=== PATIENT | female | born 1980 | race African-American/Black ===

== ENCOUNTER → 2021-01-05 11:37 | Outpatient (BNVA) | payer MEDICAID, SELFPAY | PROVIDERS: PCP General Practice; Visit Provider Internal Medicine ==

== ENCOUNTER 2021-01-07 06:15 | Outpatient (REF) | payer MEDICAID, SELFPAY ==
[2021-01-07 07:49] LABS: Free T4 (Free Thyroxine) 1.08 ng/dL (0.71-1.85); Thyroid Stimulating Hormone 4.35 uIU/mL (0.32-4.0); Vitamin D 25-OH Total 16.8 ng/mL (>30)
== END 2021-01-07 06:16 | disposition home or self-care (01) ==
LOC: HO.LAB 06:15
PROVIDERS: Visit Provider Internal Medicine
DX: E55.9 Vitamin D deficiency, unspecified (principal); E03.9 Hypothyroidism, unspecified
CPT/HCPCS: 36415; 82306; 84439; 84443

== ENCOUNTER 2021-08-08 16:35 | Emergency (ER) | payer MEDICAID, SELFPAY ==
[2021-08-08 17:37] VITALS: BP 96/58; PULSE 103; RESP 20; TEMP 36.1; O2SAT 99; BMI 31.7
[2021-08-08 18:31] LABS: Appearance Urine CLEAR; Color Urine YELLOW; Glucose Urine UA NEG (NEG); Leukocyte Esterase Urine 1+ (NEG); Nitrite Urine NEG (NEG); Specific Gravity - Urine 1.025 (1.005-1.025); UACC Culture Trigger YES; Urine Blood 2+ (NEG); Urine Ketones NEG (NEG); Urine Protein NEG (NEG-TRACE)
[2021-08-08 18:33] LABS: UPreg QC Valid YES; Urine Pregnancy NEGATIVE (NEGATIVE)
[2021-08-08 18:44] LABS: Basophils Percent Auto 0.8 % (0-2); Eosinophils Percent Auto 0.4 % (0-4); Hematocrit 33.7 % (37.0-47.0); Hemoglobin 11.4 g/dl (12.0-16.0); Imm Gran Abs Auto 0.02 X10*3/uL (0.00-0.03); Imm Gran Pct Auto 0.8 % (0.0-0.4); Lymphocytes Absolute Auto 0.6 X10*3/uL (1.2-4.9); Lymphocytes Percent Auto 21.8 % (20-40); MANUAL DIFF FLAG SCAN; Mean Corpuscular HGB Conc 33.8 g/dl (31.0-35.0); Mean Corpuscular Hemoglobin 27.3 pg (27.0-33.0); Mean Corpuscular Volume 80.6 fL (80.0-98.0); Mean Platelet Volume 10.4 fL (9.4-12.3); Monocytes Absolute Auto 0.8 X10*3/uL (0.1-1.2); Neutrophils Absolute Auto 1.2 x10*3/uL (2.0-8.3); Neutrophils Percent Auto 47.2 % (45-73); Platelet Count 168 X10*3/uL (160-400); Red Blood Count 4.18 X10*6/uL (4.20-5.50); Red Cell Distribution Width 14.2 % (11.0-16.0); SCAN SMEAR FLAG 1; White Blood Count 2.6 X10*3/uL (4.8-10.8)
[2021-08-08 18:54] LABS: Anion Gap 11 (12-20); Blood Urea Nitrogen 10 mg/dL (9-16); Calcium 9.1 mg/dL (8.4-10.2); Carbon Dioxide 24 mmol/L (22-29); Chloride 108 mmol/L (96-108); Creatinine Clr Calc Pharmacy 83.6; Estimated Glomerular Filt Rate 55; Glucose Fasting 83 mg/dL (60-99); Potassium 3.9 mmol/L (3.3-5.1); Sodium 139 mmol/L (135-145)
[2021-08-08 18:58] LABS: Bacteria Urine TRACE /LPF; Squamous Epithelial Cell Urine 2+ /LPF
[2021-08-08 19:07] LABS: SLIDE REVIEW VERIFIED
[2021-08-08 19:46] VITALS: BP 100/58; PULSE 100; RESP 18; TEMP 36.9; O2SAT 99
[2021-08-08 20:11] LABS: COVID-19 Test Positive (Negative)
--- NOTE | 2021-08-08 22:25 | ED_ITS ---
HPI - Female Genitourinary General Chief complaint: Urogenital-Female Stated complaint: Back pain Time Seen by Provider: 08/08/21 19:37 History of Present Illness HPI Narrative: Patient 40 years old son tested positive for COVID. Patient complaining of back pain that is bilateral. Radiates down both legs. There is no bowel urinary incontinence. No focal weakness. Patient is from home. Had her Moderna vaccine back in November and December. Patient denies any dizziness. Pain worse with movement. No trauma to the back. Related Data Home Medications Medication Instructions Recorded Confirmed emtricitabine 100 mg-tenofovir 1 tab PO tab 01/05/21 01/05/21 disoproxil fumarate 150 mg tablet (Truvada) levothyroxine 200 mcg tablet 200 mcg PO DAILY 01/05/21 01/05/21 (Synthroid) Previous Rx's Medication Instructions Recorded cholecalciferol (vitamin D3) 1,250 1,250 mcg PO QWEEK 56 Days #8 cap 01/10/21 mcg (50,000 unit) capsule cholecalciferol (vitamin D3) 50 50 mcg PO DAILY 30 Days #30 cap 01/10/21 mcg (2,000 unit) capsule cyclobenzaprine 10 mg tablet 10 mg PO TID PRN #14 tab 08/08/21 ibuprofen 400 mg tablet 400 mg PO Q6H PRN #20 tab 08/08/21 Allergies Allergy/AdvReac Type Severity Reaction Status Date / Time No Known Drug Allergies Allergy Mild NONE Verified 01/05/21 12:12 [NO KNOWN DRUG ALLERGIES] Review of Systems Review of Systems: No focal weakness no bowel urinary incontinence. No fever no chills no cough no congestion or upper respiratory symptoms Yes all other systems are reviewed and are negative PMF Past Medical History Attestation statement: The following information was validated with the patient. Medical History History of Graves' disease Hypothyroidism Sickle cell disease Vitamin D deficiency Surgical History Hx of appendectomy Hx of neck surgery Hx of total thyroidectomy Hx of tubal ligation Family History Family History Mother Diabetes Alzheimer disease Parkinson disease Father Prostate cancer Social History Social History Advance Directives: No Advance Directives Information Provided: No Physical Exam Vital Signs: Vital Signs: Last Vital Signs Temp 98.5 F 08/08/21 19:46 Pulse 100 08/08/21 19:46 Resp 18 08/08/21 19:46 BP 100/58 L 08/08/21 19:46 Pulse Ox 99 08/08/21 19:46 BMI result Body Mass Index 31.7 Appearance: Alert. Oriented X3. No acute distress. Eyes: Pupils equal, round and reactive to light. ENT: Pharynx normal. Neck: Normal inspection. Neck supple. No lymph nodes noted. No crepitus CVS: Normal heart rate and rhythm. Pulses normal. Normal S1 and S2 Respiratory: No respiratory distress. Breath sounds normal. No Wheezing. No rales Abdomen: Soft and nontender. No rigidity. No distention. good BS x4 Skin: Skin warm and dry. Normal skin color. Normal skin turgor. Extremities: No lower extremity edema. Neurovascular intact to all extremities. No Lacerations. No Rash Neuro: Oriented X 3. No motor deficit. No sensory deficit. Moving all extermities. No slurred speech. Positive paraspinal muscle tenderness bilaterally. Sensation bilateral lower extremity intact. Ambulated well without any difficulty. Reflexes for patella laterally. MDM - Female Genitourinary MDM Narrative Medical decision making narrative: COVID test was positive. Urine showed no evidence of infection. Creatinine was normal. Hemoglobin is normal. Patient's back pain radiating down the leg consistent with having sciatica. No bowel urinary incontinence. No focal weakness. Will discharge patient home with NSAID and muscle relaxants. test was also negative. Lab Data Result diagrams: 08/08/21 18:35 08/08/21 18:35 Labs: Lab Results 08/08/21 08/08/21 08/08/21 Range/Units 18:23 18:23 18:35 WBC 2.6 L (4.8-10.8) X10*3/uL RBC 4.18 L (4.20-5.50) X10*6/uL Hgb 11.4 L (12.0-16.0) g/dl Hct 33.7 L (37.0-47.0) % MCV 80.6 (80.0-98.0) fL MCH 27.3 (27.0-33.0) pg MCHC 33.8 (31.0-35.0) g/dl RDW 14.2 (11.0-16.0) % Plt Count 168 (160-400) X10*3/uL MPV 10.4 (9.4-12.3) fL Immature Gran % (Auto) 0.8 H (0.0-0.4) % Neut % (Auto) 47.2 (45-73) % Lymph % (Auto) 21.8 (20-40) % [place] % (Auto) 29.0 H (2-11) % Eos % (Auto) 0.4 (0-4) % Baso % (Auto) 0.8 (0-2) % Lymph # (Auto) 0.6 L (1.2-4.9) X10*3/uL [place] # (Auto) 0.8 (0.1-1.2) X10*3/uL Eos # (Auto) 0.0 (0.0-0.4) X10*3/uL Baso # (Auto) 0.0 (0.0-0.2) X10*3/uL Abs Immat Gran (auto) 0.02 (0.00-0.03) X10*3/uL Absolute Neuts (auto) 1.2 L (2.0-8.3) x10*3/uL Absolute Nucleated RBC 0.000 (0.0-0.012) X10*3/uL Nucleated RBC % (auto) 0.0 (0.0-0.2) /100WBC Smear Tech's Comments VERIFIED Sodium (135-145) mmol/L Potassium (3.3-5.1) mmol/L Chloride (96-108) mmol/L Carbon Dioxide (22-29) mmol/L Anion Gap (12-20) BUN (9-16) mg/dL Creatinine (0.5-1.4) mg/dL Estim Creat Clear Calc Estimated GFR Fasting Glucose (60-99) mg/dL Calcium (8.4-10.2) mg/dL Urine Color YELLOW Urine Appearance CLEAR Urine pH 6.0 (5.0-8.0) Ur Specific [place] 1.025 (1.005-1.025) Urine Protein NEG (NEG-TRACE) MG/DL Urine Glucose (UA) NEG (NEG) MG/DL Urine Ketones NEG (NEG) MG/DL Urine Blood 2+ H (NEG) Urine Nitrite NEG (NEG) Ur Leukocyte Esterase 1+ H (NEG) Urine RBC 1-4 (0) /HPF Urine WBC 1-4 (0-4) /HPF Ur Squamous Epith Cells 2+ /LPF Urine Bacteria TRACE /LPF Urine Test NEGATIVE (NEGATIVE) COVID-19 (SHRUTHI) (Negative) COVID-19 Clin Com 08/08/21 08/08/21 Range/Units 18:35 19:46 WBC (4.8-10.8) X10*3/uL RBC (4.20-5.50) X10*6/uL Hgb (12.0-16.0) g/dl Hct (37.0-47.0) % MCV (80.0-98.0) fL MCH (27.0-33.0) pg MCHC (31.0-35.0) g/dl RDW (11.0-16.0) % Plt Count (160-400) X10*3/uL MPV (9.4-12.3) fL Immature Gran % (Auto) (0.0-0.4) % Neut % (Auto) (45-73) % Lymph % (Auto) (20-40) % [place] % (Auto) (2-11) % Eos % (Auto) (0-4) % Baso % (Auto) (0-2) % Lymph # (Auto) (1.2-4.9) X10*3/uL [place] # (Auto) (0.1-1.2) X10*3/uL Eos # (Auto) (0.0-0.4) X10*3/uL Baso # (Auto) (0.0-0.2) X10*3/uL Abs Immat Gran (auto) (0.00-0.03) X10*3/uL Absolute Neuts (auto) (2.0-8.3) x10*3/uL Absolute Nucleated RBC (0.0-0.012) X10*3/uL Nucleated RBC % (auto) (0.0-0.2) /100WBC Smear Tech's Comments Sodium 139 (135-145) mmol/L Potassium 3.9 (3.3-5.1) mmol/L Chloride 108 (96-108) mmol/L Carbon Dioxide 24 (22-29) mmol/L Anion Gap 11 L (12-20) BUN 10 (9-16) mg/dL Creatinine 1.09 (0.5-1.4) mg/dL Estim Creat Clear Calc 83.6 Estimated GFR 55 Fasting Glucose 83 (60-99) mg/dL Calcium 9.1 (8.4-10.2) mg/dL Urine Color Urine Appearance Urine pH (5.0-8.0) Ur Specific [place] (1.005-1.025) Urine Protein (NEG-TRACE) MG/DL Urine Glucose (UA) (NEG) MG/DL Urine Ketones (NEG) MG/DL Urine Blood (NEG) Urine Nitrite (NEG) Ur Leukocyte Esterase (NEG) Urine RBC (0) /HPF Urine WBC (0-4) /HPF Ur Squamous Epith Cells /LPF Urine Bacteria /LPF Urine Test (NEGATIVE) COVID-19 (SHRUTHI) Positive A (Negative) COVID-19 Clin Com See Note Discharge Plan Discharge Clinical Impression: Sciatica Patient Disposition: Home, Self-Care Instructions: Sciatica (ED), Acute Low Back Pain (ED), COVID-19 (Coronavirus Disease 2019) (ED) Prescriptions: New cyclobenzaprine 10 mg tablet 10 mg PO TID PRN (Reason: pain) Qty: 14 RF: 0 ibuprofen 400 mg tablet 400 mg PO Q6H PRN (Reason: pain) Qty: 20 RF: 0 No Action cholecalciferol (vitamin D3) 50 mcg (2,000 unit) capsule 50 mcg PO DAILY 30 Days Qty: 30 RF: 11 cholecalciferol (vitamin D3) 1,250 mcg (50,000 unit) capsule 1,250 mcg PO QWEEK 56 Days Qty: 8 RF: 0 levothyroxine [Synthroid] 200 mcg tablet 200 mcg PO DAILY RF: 0 emtricitabine-tenofovir (TDF) [Truvada] 100-150 mg tablet 1 tab PO RF: 0 Referrals: Physician,Unknown J [Primary Care Provider] - 2 days ( Please stay at home isolation into all symptom has resolved. you tested positive for COVID today.)
[2021-08-08] MEDS: carisoprodoL 350 MG TABLET PO (22:47)
[2021-08-08] MEDS: Ibuprofen 400 MG TABLET PO (22:47)
== END 2021-08-08 22:50 | disposition home or self-care (01) ==
PROVIDERS: Emergency Provider Emergency Medicine Emergency Medical Services
DX: U07.1 COVID-19 (principal); M54.42 Lumbago with sciatica, left side; M54.41 Lumbago with sciatica, right side
CPT/HCPCS: 36415; 80048; 81001; 81025; 85025; 87086; 87635; 99283

== ENCOUNTER 2022-03-23 13:33 | Outpatient (REF) | payer MEDICAID, SELFPAY ==
[2022-03-23 14:25] LABS: Alanine Aminotransferase 12 U/L (0-31); Albumin Level 4.2 g/dL (3.5-5.0); Alkaline Phosphatase 54 U/L (39-117); Anion Gap 9 (12-20); Aspartate Amino Transferase 19 U/L (5-31); Bilirubin Direct 0.2 mg/dL (0.0-0.5); Bilirubin Total 0.3 mg/dL (0.0-1.0); Blood Urea Nitrogen 11 mg/dL (9-16); Calcium 8.5 mg/dL (8.4-10.2); Carbon Dioxide 24 mmol/L (22-29); Chloride 110 mmol/L (96-108); Estimated Average Glucose 100 mg/dL; Estimated Glomerular Filt Rate 58; Glucose Random 95 mg/dL (60-115); Hemoglobin A1c % 5.1 %; Potassium 4.2 mmol/L (3.3-5.1); Sodium 139 mmol/L (135-145); Total Protein 6.9 g/dL (6.5-8.0)
[2022-03-23 14:45] LABS: TSH reflex Free T4 6.01 uIU/mL (0.32-4.0)
[2022-03-23 16:30] LABS: Free T4 (Free Thyroxine) 1.24 ng/dL (0.71-1.85)
[2022-03-25 18:26] LABS: Follicle Stimulating Hormone 7.7 mIU/mL; Lutenizing Hormone 6.5 mIU/mL; Prolactin 4.7 ng/mL
[2022-03-30 11:56] LABS: Testosterone, Total 24 ng/dL (2-45)
== END 2022-03-23 13:34 | disposition home or self-care (01) ==
LOC: HO.LAB 13:33
PROVIDERS: PCP General Practice; Visit Provider General Practice
DX: E03.9 Hypothyroidism, unspecified (principal); N92.6 Irregular menstruation, unspecified
CPT/HCPCS: 36415; 80053; 82248; 83001; 83002; 83036; 84146; 84403; 84439; 84443

== ENCOUNTER 2022-07-28 11:33 | Emergency (ER) | payer MEDICAID, SELFPAY ==
--- NOTE | ~2022-07-28 | XR_ITS ---
EXAMINATION: LEFT KNEE AND LEFT HIP. CLINICAL INFORMATION: Fall. Pain. COMPARISON: None TECHNIQUE: 4 views left knee and 2 views left hip. FINDINGS: Left knee: There is no visible acute fracture, dislocation or subluxation seen. The soft tissues are normal. Left hip: The left hip joint space is maintained normal. No visible acute fracture or dislocation or subluxation seen. There is no bony erosive changes. The soft tissues are normal. XR/XR knee LT 4V IMPRESSION: Unremarkable left knee and left hip exam.
--- NOTE | ~2022-07-28 | XR_ITS ---
EXAMINATION: LEFT KNEE AND LEFT HIP. CLINICAL INFORMATION: Fall. Pain. COMPARISON: None TECHNIQUE: 4 views left knee and 2 views left hip. FINDINGS: Left knee: There is no visible acute fracture, dislocation or subluxation seen. The soft tissues are normal. Left hip: The left hip joint space is maintained normal. No visible acute fracture or dislocation or subluxation seen. There is no bony erosive changes. The soft tissues are normal. XR/XR hip LT min 2V IMPRESSION: Unremarkable left knee and left hip exam.
[2022-07-28 12:30] VITALS: BP 110/77; PULSE 81; RESP 18; O2SAT 100; BMI 30.1
--- NOTE | 2022-07-28 12:30 | ED.FALL ---
HPI - Fall General Chief Complaint: Fall <Maegan Greene CNP - Last Filed: 07/28/22 12:36> Stated Complaint: fall down stairs, knee and back pain <Maegan Greene CNP - Last Filed: 07/28/22 12:36> Time Seen by Provider: 07/28/22 13:43 <Maegan Greene CNP - Last Filed: 07/28/22 12:36> Source: patient <Betty Moses NP - Last Filed: 07/28/22 15:08> Mode of arrival: wheelchair <Betty Moses NP - Last Filed: 07/28/22 15:08> Limitations: no limitations <Betty Moses NP - Last Filed: 07/28/22 15:08> History of Present Illness HPI Narrative: 41 yo female with history of sickle cell, hypothyroidism here with complaints of left hip/knee pain after a fall just [employer]. Patient reports she was walking down steps when her left knee gave out causing her to fall landing on the left hip/knee down 5 steps. Denies hitting head or LOC. NO neck pain/back pain/chest pain or abdominal pain. Patient reports scheduled for meniscus repair/clean out of left knee on Sunday with [facility]. <Betty Moses NP - Last Filed: 07/28/22 15:08> Related Data Home Medications: Home Medications Medication Instructions Recorded Confirmed emtricitabine 100 mg-tenofovir 1 tab PO 01/05/21 01/05/21 disoproxil fumarate 150 mg tablet (Truvada) levothyroxine 200 mcg tablet 200 mcg PO DAILY 01/05/21 01/05/21 (Synthroid) Previous Rx's Medication Instructions Recorded cholecalciferol (vitamin D3) 1,250 1,250 mcg PO QWEEK 8 weeks #8 caps 01/10/21 mcg (50,000 unit) capsule cholecalciferol (vitamin D3) 50 50 mcg PO DAILY 30 days #30 caps 01/10/21 mcg (2,000 unit) capsule cyclobenzaprine 10 mg tablet 10 mg PO TID PRN pain #14 tabs 08/08/21 ibuprofen 400 mg tablet 400 mg PO Q6H PRN pain #20 tabs 08/08/21 <Maegan Greene [facility] - Last Filed: 07/28/22 12:36> Allergies/Adverse Reactions: Allergies Allergy/AdvReac Type Severity Reaction Status Date / Time No Known Drug Allergies Allergy Mild NONE Verified 01/05/21 12:12 [NO KNOWN DRUG ALLERGIES] <Maegan Greene [facility] - Last Filed: 07/28/22 12:36> Review of Systems Review of Systems: Yes all other systems are reviewed and are negative <Betty Moses NP - Last Filed: 07/28/22 15:08> Constitutional: Constitutional: Reports no additional constitutional complaints, Denies body ache(s), Denies chills, Denies fever(s), Denies headache(s) and Denies weakness <Betty Moses NP - Last Filed: 07/28/22 15:08> Eyes: Eyes: Reports no additional eye complaints and Denies change in vision <Betty Moses NP - Last Filed: 07/28/22 15:08> ENT: Reports system reviewed and no additional complaints, except as documented, Denies dizziness, Denies headache(s), Denies nasal congestion, Denies nasal discharge and Denies neck pain <Betty Moses NP - Last Filed: 07/28/22 15:08> Cardiovascular: Cardiovascular: Reports no additional cardiovascular complaints, Denies chest pain, Denies leg edema and Denies dyspnea <Betty Moses NP - Last Filed: 07/28/22 15:08> Respiratory: Respiratory: Reports no additional respiratory complaints, Denies cough and Denies dyspnea <Betty Moses NP - Last Filed: 07/28/22 15:08> Gastrointestinal: Gastrointestinal: Reports no additional gastrointestinal complaints, Denies abdominal pain, Denies diarrhea, Denies nausea and Denies vomiting <Betty Moses NP - Last Filed: 07/28/22 15:08> Genitourinary: Genitourinary: Reports no additional female genitourinary complaints and Denies urinary incontinence <Betty Moses NP - Last Filed: 07/28/22 15:08> Musculoskeletal: Musculoskeletal: Reports no additional musculoskeletal complaints, Denies back pain, Reports arthralgias, Reports joint swelling, Reports limited range of motion, Denies neck pain, Denies numbness and Denies tingling <Betty Moses NP - Last Filed: 07/28/22 15:08> Integumentary/Breasts: Skin/Breast: Reports system reviewed and no additional complaints, except as docu and Denies rash <Betty Moses NP - Last Filed: 07/28/22 15:08> Neurologic: Reports system reviewed and no additional complaints, except as documented, Denies Abnormal speech present, Denies dizziness, Denies headache(s), Denies numbness, Denies tingling and Denies weakness <Betty Moses NP - Last Filed: 07/28/22 15:08> [facility] Past Medical History Attestation statement: The following information was validated with the patient. <Betty Moses NP - Last Filed: 07/28/22 15:08> Source: old records reviewed and nursing notes reviewed <Betty Moses NP - Last Filed: 07/28/22 15:08> Medical History: Medical History History of Graves' disease Hypothyroidism Sickle cell disease Vitamin D deficiency <Maegan Greene CNP - Last Filed: 07/28/22 12:36> Surgical History: Surgical History Hx of appendectomy Hx of neck surgery Hx of total thyroidectomy Hx of tubal ligation <Maegan Greene CNP - Last Filed: 07/28/22 12:36> Family History Family History: Family History Mother Diabetes Alzheimer disease Parkinson disease Father Prostate cancer <Maegan Greene CNP - Last Filed: 07/28/22 12:36> Social History Social History: Social History Advance Directives: No Advance Directives Information Provided: Yes <Maegan Greene CNP - Last Filed: 07/28/22 12:36> Physical Exam Vital Signs: Vital Signs: Last Vital Signs Pulse 81 07/28/22 12:30 Resp 18 07/28/22 12:30 BP 110/77 07/28/22 12:30 Pulse Ox 100 07/28/22 12:30 O2 Del Method 07/28/22 12:30 BMI result Body Mass Index 30.1 <Maegan Greene CNP - Last Filed: 07/28/22 12:36> Vital Signs: Last Vital Signs Pulse 81 07/28/22 12:30 Resp 18 07/28/22 12:30 BP 110/77 07/28/22 12:30 Pulse Ox 100 07/28/22 12:30 O2 Del Method 07/28/22 12:30 BMI result Body Mass Index 30.1 <Betty Moses NP - Last Filed: 07/28/22 15:08> Const: General: cooperative, healthy appearing, comfortable and no acute distress <Betty Moses NP - Last Filed: 07/28/22 15:08> Orientation/consciousness: patient oriented x3 <Betty Moses NP - Last Filed: 07/28/22 15:08> Limitations: no limitations <Betty Moses NP - Last Filed: 07/28/22 15:08> HEENT: Head: Yes normal to inspection <Betty Moses NP - Last Filed: 07/28/22 15:08> Ears: hearing grossly normal bilaterally <Betty Moses NP - Last Filed: 07/28/22 15:08> General nose exam: Normal external nose present <Betty Moses NP - Last Filed: 07/28/22 15:08> Face and sinus: Yes normal facial exam <Betty Moses NP - Last Filed: 07/28/22 15:08> Mouth: Normal oral and palatal mucosa present <Betty Moses NP - Last Filed: 07/28/22 15:08> Throat: Yes posterior oropharynx normal <Betty Moses NP - Last Filed: 07/28/22 15:08> Eyes: General: appearance normal, both eyes and all related structures <Betty Moses NP - Last Filed: 07/28/22 15:08> Pupils: Equal, round and reactive pupils present <Betty Moses NP - Last Filed: 07/28/22 15:08> Neck: Neck: Yes normal visual inspection <Betty Moses NP - Last Filed: 07/28/22 15:08> Chest: Chest palpation & inspection: normal inspection of the chest <Betty Moses NP - Last Filed: 07/28/22 15:08> Resp: Effort & Inspection: normal respiratory effort <Betty Moses NP - Last Filed: 07/28/22 15:08> Auscultation: clear to auscultation bilaterally <Betty Moses NP - Last Filed: 07/28/22 15:08> Cardio: Rate: regular rate <Betty Moses NP - Last Filed: 07/28/22 15:08> Rhythm: regular rhythm <Betty Moses NP - Last Filed: 07/28/22 15:08> Peripheral pulses: Peripheral pulses 2+ throughout <Betty Moses WORKING MANAGER - Last Filed: 07/28/22 15:08> GI: Inspection: Yes normal to inspection <Betty Moses NP - Last Filed: 07/28/22 15:08> Palpation (GI): Soft to palpation and nontender <Betty Moses NP - Last Filed: 07/28/22 15:08> Auscultation: normal bowel sounds <Betty Moses NP - Last Filed: 07/28/22 15:08> Back/Spine/Pelvis: Thoracic/Lumbar Spine: thoracic and lumbar spine normal to inspection <Betty Moses NP - Last Filed: 07/28/22 15:08> Skin: General skin exam: no rashes or lesions noted <Betty Moses NP - Last Filed: 07/28/22 15:08> Neuro: General: patient oriented x3, no focal motor deficits and normal sensation to monofilament <Betty Moses NP - Last Filed: 07/28/22 15:08> Cranial nerves: Yes Equal, round and reactive pupils present <Betty Moses NP - Last Filed: 07/28/22 15:08> Cognition (Neuro): normal cognition <Betty Moses NP - Last Filed: 07/28/22 15:08> Speech: No Abnormal speech present <Betty Moses NP - Last Filed: 07/28/22 15:08> Gait exam (Neuro): Normal gait present <Betty Moses NP - Last Filed: 07/28/22 15:08> Motor exam (neuro): 5/5 motor strength present throughout <Betty Moses NP - Last Filed: 07/28/22 15:08> Sensory Exam: Normal double simultaneous stimulation for sensation <Betty Moses NP - Last Filed: 07/28/22 15:08> Extrem: Other: Tenderness to the left lateral knee/hip with no obvious deformity/swelling/ecchymosis. FROM of left knee and hip. No ligamental laxity of left knee. NV intact distally (sensation normal, normal distal DP and PT pulses). <Betty Moses NP - Last Filed: 07/28/22 15:08> General: Yes normal to inspection <Betty Moses NP - Last Filed: 07/28/22 15:08> Course Course Course Narrative: RME: Patient is a 41-year-old female presenting to emergency department with complaints of traumatic left hip and left knee pain. States just prior to arrival when walking down the stairs last footing, fell down approximately 5-7 stairs. Sliding on the left side. Denies head strike or loss of consciousness. Currently complaining of pain to the left hip and left lateral knee. Is due to have knee surgery next week, believes it is a meniscus repair PE: Decreased AROM to Left hip and knee, sitting in wheelchair, states unable to weight bear due to pain. 2+ DP/ PT pulse. No obvious deformity. Plan: XR hip, XR knee, ibuprofen for pain. <Maegan Greene CNP - Last Filed: 07/28/22 12:36> Reevaluation(s) Reevaluation #1: 1500-X-rays are negative. Patient able to stand from wheelchair to remove pants for exam. Likely contusion. Reviewed RICE, reviewed worrisome signs/symptoms with patient and when to seek additional care. Comfortable with discharg ehome. <Betty Moses NP - Last Filed: 07/28/22 15:08> Medications Administered Discontinued Medications Generic Name Dose Route Start Last Admin Trade Name Freq PRN Reason Stop Dose Admin Ibuprofen 600 mg 07/28/22 12:33 07/28/22 12:39 Ibuprofen 600 Mg Tablet PO 07/28/22 12:34 600 mg ONCE ONE Administration <Maegan Greene CNP - Last Filed: 07/28/22 12:36> Medications Administered Discontinued Medications Generic Name Dose Route Start Last Admin Trade Name Freq PRN Reason Stop Dose Admin Ibuprofen 600 mg 07/28/22 12:33 07/28/22 12:39 Ibuprofen 600 Mg Tablet PO 07/28/22 12:34 600 mg ONCE ONE Administration <Betty Moses NP - Last Filed: 07/28/22 15:08> MDM - Fall MDM Narrative Medical decision making narrative: 41 yo female here with left knee/hip pain after left knee gave out causing her to fall. No head injury or LOC. Normal neuro exam. Mild tenderness over lateral left knee and hip with no obvious deformity or swelling. Will check x-rays. <Betty Moses NP - Last Filed: 07/28/22 15:08> Medical Records Attestation: I reviewed the patient's medical records. <Betty Moses NP - Last Filed: 07/28/22 15:08> Lab Data Attestation: I reviewed the patient's lab results. <Betty Moses NP - Last Filed: 07/28/22 15:08> Imaging Data left knee/hip x-rays: Attestation: I personally reviewed and interpreted this imaging study as follows: <Betty Moses NP - Last Filed: 07/28/22 15:08> Radiologist's impression: [address] [address] XRay Report Signed Patient: Izabela Jacobsen MR#: [id number] : 1980 Acct:[id number] Age/Sex: 41 / F ADM Date: 07/28/22 Loc: HO.ED Attending Dr: Ordering Physician: Maegan Greene CNP Date of Service: 07/28/22 Procedure(s): XR hip LT min 2V Accession Number(s): [id number] cc: Maegan Greene CNP~ EXAMINATION: LEFT KNEE AND LEFT HIP. CLINICAL INFORMATION: Fall. Pain. COMPARISON: None? TECHNIQUE: 4 views left knee and 2 views left hip.? FINDINGS: Left knee: There is no visible acute fracture, dislocation or subluxation seen. The soft tissues are normal. Left hip: The left hip joint space is maintained normal. No visible acute fracture or dislocation or subluxation seen. There is no bony erosive changes. The soft tissues are normal. XR/XR hip LT min 2V IMPRESSION: Unremarkable left knee and left hip exam.? <Betty Moses NP - Last Filed: 07/28/22 15:08> Discharge Plan Discharge Clinical Impression: Contusion of knee, left, Contusion of hip, left <Maegan Greene CNP - Last Filed: 07/28/22 12:36> Patient Disposition: Home, Self-Care <Maegan Greene CNP - Last Filed: 07/28/22 12:36> Instructions: Contusion in Adults (ED), Hip Contusion (ED) <Maegan Greene CNP - Last Filed: 07/28/22 12:36> Additional Instructions: motrin or tylenol for pain or fever heat or ice gentle stretching <Maegan Greene CNP - Last Filed: 07/28/22 12:36> Prescriptions: No Action cholecalciferol (vitamin D3) 50 mcg (2,000 unit) capsule 50 mcg PO DAILY 30 Days Qty: 30 11RF cholecalciferol (vitamin D3) 1,250 mcg (50,000 unit) capsule 1,250 mcg PO QWEEK 56 Days Qty: 8 0RF cyclobenzaprine 10 mg tablet 10 mg PO TID PRN (Reason: pain) Qty: 14 0RF ibuprofen 400 mg tablet 400 mg PO Q6H PRN (Reason: pain) Qty: 20 0RF levothyroxine [Synthroid] 200 mcg tablet 200 mcg PO DAILY emtricitabine-tenofovir (TDF) [Truvada] 100-150 mg tablet 1 tab PO <Maegan Greene CNP - Last Filed: 07/28/22 12:36> [facility] - <Maegan Greene CNP - Last Filed: 07/28/22 12:36> Interventions: ED Discharge Assessment Last Done: 07/28/22 14:40 <Maegan Greene CNP - Last Filed: 07/28/22 12:36> Discharge Date/Time: 07/28/22 14:40 <Maegan Greene CNP - Last Filed: 07/28/22 12:36>
[2022-07-28] MEDS: Ibuprofen 600 MG TABLET PO (12:39)
== END 2022-07-28 14:40 | disposition home or self-care (01) ==
PROVIDERS: Emergency Provider Emergency Medicine Emergency Medical Services
DX: S80.02XA Contusion of left knee, initial encounter (principal); S70.02XA Contusion of left hip, initial encounter; W10.8XXA Fall (on) (from) other stairs and steps, initial encounter; Y93.9 Activity, unspecified; Y92.018 Other place in single-family (private) house as the place of occurrence of the external cause; Y99.9 Unspecified external cause status
CPT/HCPCS: 73502; 73564; 99283

== ENCOUNTER 2022-09-09 08:55 | Outpatient (REF) | payer MEDICAID, SELFPAY ==
--- NOTE | ~2022-09-09 | MM_ITS ---
EXAMINATION: MM SCREENING DIGITAL BREAST TOMOSYNTHESIS, BILATERAL CLINICAL INFORMATION: Screening. Asymptomatic. Prior outside mammography currently unavailable. Age 41. Family history breast cancer, maternal grandmother. The lifetime risk of breast cancer based on the Tyrer-Cuzick Model is 13%. COMPARISON: None. TECHNIQUE: Digital breast tomosynthesis is performed in both the craniocaudal and mediolateral oblique views along with computer-aided detection (CAD). Synthesized 2D images are generated from the tomosynthesis. Additional right CC view is provided. FINDINGS: There are scattered areas of fibroglandular density (ACR BI-RADS breast composition Category b). There are no significant masses, abnormal calcifications, or other abnormalities. No architectural abnormality. The axilla and skin contours are unremarkable. MM/MM tomosynthesis screening BI IMPRESSION: No mammographic evidence of malignancy. ASSESSMENT: BI-RADS 1: Negative RECOMMENDATION: Routine annual mammography screening. This patient's information was entered into a reminder system with a target due date for their next mammogram.
== END 2022-09-09 08:56 | disposition home or self-care (01) ==
LOC: HO.MAMMO 08:55
PROVIDERS: PCP General Practice; Visit Provider Advanced Practice Midwife
DX: Z12.31 Encounter for screening mammogram for malignant neoplasm of breast (principal)
CPT/HCPCS: 77063; 77067

== ENCOUNTER → 2022-10-04 09:46 | Outpatient (BNVA) | payer MEDICAID, SELFPAY | PROVIDERS: PCP General Practice; Visit Provider Internal Medicine | DX: E03.9 Hypothyroidism, unspecified (principal) | CPT/HCPCS: 36415; 84439; 84443; 99212 ==

== ENCOUNTER 2022-10-04 10:32 | Outpatient (REF) | payer MEDICAID, SELFPAY ==
[2022-10-04 14:54] LABS: Free T4 (Free Thyroxine) 1.71 ng/dL (0.71-1.85); Thyroid Stimulating Hormone 0.04 uIU/mL (0.32-4.0)
== END 2022-10-04 10:33 | disposition home or self-care (01) ==
LOC: HO.10HDL 10:32
PROVIDERS: Visit Provider Internal Medicine
DX: E03.9 Hypothyroidism, unspecified (principal)
CPT/HCPCS: 36415; 84439; 84443

== ENCOUNTER 2022-11-16 12:50 | Outpatient (REF) | payer MEDICAID, SELFPAY ==
--- NOTE | ~2022-11-16 | XR_ITS ---
EXAMINATION: XR KNEE, RIGHT CLINICAL INFORMATION: Acute pain of right knee. No additional information is provided. COMPARISON: None available. TECHNIQUE: Three views of the right knee. FINDINGS: Bones have normal alignment. No fracture, subluxation or joint effusion. No erosions or periostitis. Small enthesophyte of the patella. Mild edema is suspected in the prepatellar subcutaneous tissue. XR/XR knee RT 3V IMPRESSION: No acute osseous injury at the right knee. No arthritic deformity, fracture or malalignment.
== END 2022-11-16 12:51 | disposition home or self-care (01) ==
LOC: HO.XRAY 12:50
PROVIDERS: Visit Provider Family Medicine
DX: M25.561 Pain in right knee (principal)
CPT/HCPCS: 73562

== ENCOUNTER 2022-11-28 12:23 | Outpatient (REF) | payer MEDICAID, SELFPAY ==
[2022-11-28 18:20] LABS: Free T4 (Free Thyroxine) 1.12 ng/dL (0.71-1.85); Thyroid Stimulating Hormone 1.44 uIU/mL (0.32-4.0)
== END 2022-11-28 12:24 | disposition home or self-care (01) ==
LOC: HO.10HDL 12:23
PROVIDERS: Visit Provider Internal Medicine
DX: E03.9 Hypothyroidism, unspecified (principal)
CPT/HCPCS: 36415; 84439; 84443

== ENCOUNTER → 2022-12-04 11:25 | Outpatient (BNVA) | payer MEDICAID, SELFPAY | PROVIDERS: PCP General Practice; Visit Provider Internal Medicine | DX: E03.9 Hypothyroidism, unspecified (principal) | CPT/HCPCS: 99212 ==

== ENCOUNTER 2023-08-06 17:39 | Outpatient (REF) | payer MEDICAID, SELFPAY ==
[2023-08-06 18:32] LABS: Influenza A PCR NEGATIVE (Negative); Influenza B PCR NEGATIVE (Negative); Resp Syncy Virus RNA Qual PCR NEGATIVE (Negative); SARS COV2 PCR INHOUSE POSITIVE (Negative)
== END 2023-08-06 17:40 | disposition home or self-care (01) ==
LOC: HO.HHCLNP 17:39
PROVIDERS: Visit Provider Internal Medicine
DX: Z11.52 Encounter for screening for COVID-19 (principal); R05.9 Cough, unspecified
CPT/HCPCS: 0241U

== ENCOUNTER 2023-10-05 10:44 | Outpatient (REF) | payer MEDICAID, SELFPAY ==
[2023-10-05 12:45] LABS: Cholesterol 177 mg/dL (<200); HDL Cholesterol 45 mg/dL (>40); LDL Cholesterol Calculated 116 mg/dL (<100); Triglycerides 84 mg/dL (<150)
[2023-10-05 12:52] LABS: Reflex LDLD? No
[2023-10-05 12:55] LABS: HBS Num1 16.92 mIU/mL (0-7.99); HBc Num1 0.18 S/CO (0.00-0.79); HBsAGNum1 0.33 S/CO (0.00-0.99); HIV AB/AG Nonreactive (Nonreactive); HIV Num 1 0.06 S/CO (0.00-0.99); Hepatitis A Antibody IgM 0.18 Index (0-0.79); Hepatitis B Core Antibody Nonreactive (Nonreactive); Hepatitis B Surface Antigen Negative (Negative); ~HepC Num1 0.63 S/CO (0.00-0.79); ~Hepatitis A Antibody IgM Nonreactive (Nonreactive); ~Hepatitis B Surface Antibody REACTIVE (Nonreactive); ~Hepatitis C Antibody Nonreactive (Nonreactive)
[2023-10-05 12:57] LABS: Free T4 (Free Thyroxine) 1.18 ng/dL (0.71-1.85)
[2023-10-05 12:58] LABS: Thyroid Stimulating Hormone 1.54 uIU/mL (0.32-4.0)
[2023-10-05 13:01] LABS: TSH reflex Free T4 1.48 uIU/mL (0.32-4.0)
[2023-10-08 11:35] LABS: RPR Rapid Plasma Reagin NON-REACTIVE (NON-REACTIVE)
[2023-10-08 11:49] LABS: TS Negative Control Passed; TS Panel A 0; TS Panel B 0; TS Positive Control Passed; TSpotTB Negative (Negative)
[2023-10-08 16:34] LABS: Mumps Virus IgG Antibody >300.00 AU/mL; Rubella IgG Antibody 1.43 Index
== END 2023-10-05 10:45 | disposition home or self-care (01) ==
LOC: HO.HHCL 10:44
PROVIDERS: Internal Medicine; Visit Provider Internal Medicine
DX: Z00.00 Encounter for general adult medical examination without abnormal findings (principal); Z11.1 Encounter for screening for respiratory tuberculosis; Z11.4 Encounter for screening for human immunodeficiency virus [HIV]; E89.0 Postprocedural hypothyroidism
CPT/HCPCS: 36415; 80061; 84439; 84443; 86481; 86592; 86704; 86706; 86709; 86735; 86762; 86765; 86803; 87340; 87389

== ENCOUNTER 2023-11-20 11:19 | Outpatient (REF) | payer MEDICAID, SELFPAY ==
--- NOTE | ~2023-11-20 | XR_ITS ---
EXAMINATION: XR KNEE, LEFT CLINICAL INFORMATION: Left knee pain x1 week. No injury COMPARISON: None available. TECHNIQUE: 2 views of the left knee. FINDINGS: No fracture or joint effusion. Alignment is anatomic. Joint spaces are maintained. No abnormal soft tissue calcification. XR/XR knee LT 2V IMPRESSION: Normal left knee.
== END 2023-11-20 11:20 | disposition home or self-care (01) ==
LOC: HO.HHCX 11:19
PROVIDERS: Visit Provider Nurse Practitioner Family
DX: M25.562 Pain in left knee (principal)
CPT/HCPCS: 73560

== ENCOUNTER 2023-11-28 09:54 | Outpatient (AMB) | payer MEDICAID, SELFPAY ==
[2023-11-28 09:57] VITALS: BP 84/54; PULSE 56; BMI 31.9
--- NOTE | 2023-11-28 09:57 | MHC.OFFVIS ---
Intake Vital Signs 11/28/23 09:57 Height 5 ft 10 in Weight 222 lb 3.615 oz BMI 31.9 BP 84/54 L Blood Pressure Location Lt brachial Position Sitting Pulse 56 Pulse Source Pulse Oximeter Intake Visit Reasons: F/U Hypothyroidism-confirmed Intake Note: Patient present today for Hypothyroidism follow up visit. Previously seen by Dr. Solis on 12/04/22. Human Resources Assistant Required: No Accompanied by: Significant Other Allergies No Known Drug Allergies [NO KNOWN DRUG ALLERGIES] Allergy (Mild, Verified 11/28/23 10:03) NONE HPI HPI Comments History of Present Illness Details 42 YO Female with PMHx Goiter who is seen in F/U for hypothyroidism. The patient last saw Dr. Solis on 12/04/2022 She has a past history of Grave's disease with a large compressive goiter. She was previously followed by Dr. Loving. She underwent a total thyroidectomy in 2014 and has remained on levothyroxine ever since. She is currently using Levothyroxine 150 mcg PO daily. She reports good compliance with this. TSH is at goal. Reports feeling well and has no complaints today. Labs: Laboratory Tests 11/28/22 12:29 TSH 1.44 [facility] Medical History History of Graves' disease Hypothyroidism Sickle cell disease Vitamin D deficiency Surgical History Hx of appendectomy Hx of knee surgery Hx of neck surgery Hx of total thyroidectomy Hx of tubal ligation Family History Mother Diabetes Alzheimer disease Parkinson disease Father Prostate cancer Social History Alcohol intake: current Alcohol intake frequency: holidays/special occasions only Patient Tobacco Use Status: Current everyday Tobacco user Physical Exam Const Other: Healed scar status post thyroidectomy Assessment & Plan Assessment & Plan (1) Hypothyroidism: Code(s): E03.9 - Hypothyroidism, unspecified Plan: This is a 43-year-old female with a history of post-operative hypothyroidism being treated with 150 mcg levothyroxine. She appears to be clinically and biochemically euthyroid. Plan is to continue the current regimen. Patient returned to the care of her primary care provider and returned back to endocrinology as needed Coding Level of Care Code Est Pt Level 3 (52183) Diagnoses Hypothyroidism E03.9
== END 2023-11-28 10:14 | disposition home or self-care (01) ==
PROVIDERS: PCP General Practice; Referring Provider General Practice; Visit Provider Internal Medicine Endocrinology, Diabetes & Metabolism
DX: E03.9 Hypothyroidism, unspecified (principal)
CPT/HCPCS: 99213

== ENCOUNTER → 2023-11-28 09:54 | Outpatient (BNVA) | payer MEDICAID, SELFPAY | PROVIDERS: PCP General Practice; Visit Provider Internal Medicine Endocrinology, Diabetes & Metabolism | DX: E03.9 Hypothyroidism, unspecified (principal); E05.00 Thyrotoxicosis with diffuse goiter without thyrotoxic crisis or storm | CPT/HCPCS: 99212 ==

== ENCOUNTER 2023-12-11 13:21 | Outpatient (REF) | payer MEDICAID, SELFPAY ==
[2023-12-11 14:42] LABS: CDiff Gene PCR NEGATIVE (Negative)
== END 2023-12-11 13:22 | disposition home or self-care (01) ==
LOC: HO.HHCLNP 13:21
PROVIDERS: Visit Provider Internal Medicine
DX: R19.7 Diarrhea, unspecified (principal)
CPT/HCPCS: 87493

== ENCOUNTER 2023-12-27 09:53 | Outpatient (AMB) | payer MEDICAID, SELFPAY ==
[2023-12-27 09:55] VITALS: BMI 31.9
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
== END 2023-12-27 10:16 | disposition home or self-care (01) ==
PROVIDERS: PCP General Practice; Visit Provider Orthopaedic Surgery
DX: S83.242A Other tear of medial meniscus, current injury, left knee, initial encounter (principal)
CPT/HCPCS: 99202

== ENCOUNTER → 2023-12-27 09:53 | Outpatient (BNVA) | payer MEDICAID, SELFPAY | PROVIDERS: PCP General Practice; Visit Provider Orthopaedic Surgery | DX: S83.242A Other tear of medial meniscus, current injury, left knee, initial encounter (principal) | CPT/HCPCS: 99202 ==

== ENCOUNTER 2023-12-28 10:38 | Outpatient (REF) | payer MEDICAID, SELFPAY ==
--- NOTE | ~2023-12-28 | MM_ITS ---
EXAMINATION: MM SCREENING DIGITAL BREAST TOMOSYNTHESIS, BILATERAL CLINICAL INFORMATION: Screening. Asymptomatic. COMPARISON: Mammography: This study is compared with prior exams dating back to 2022. TECHNIQUE: Digital breast tomosynthesis is performed in both the craniocaudal and mediolateral oblique views along with computer-aided detection (CAD). Synthesized 2D images are generated from the tomosynthesis. FINDINGS: There are scattered areas of fibroglandular density (ACR BI-RADS breast composition Category b). There are no significant masses, abnormal calcifications, or other abnormalities. MM/MM tomosynthesis screening BI IMPRESSION: No mammographic evidence of malignancy. ASSESSMENT: BI-RADS BI-RADS 1 - Negative RECOMMENDATION: Routine annual mammography screening. 1 year F/U This examination should not preclude the clinical evaluation of a suspicious palpable abnormality. This patient's information was entered into a reminder system with a target due date for their next mammogram.
== END 2023-12-28 10:39 | disposition home or self-care (01) ==
LOC: HO.MAMMO 10:38
PROVIDERS: PCP General Practice; Visit Provider General Practice
DX: Z12.31 Encounter for screening mammogram for malignant neoplasm of breast (principal)
CPT/HCPCS: 77063; 77067

== ENCOUNTER → 2023-12-28 11:00 | Outpatient (BNV) | payer MEDICAID, SELFPAY | PROVIDERS: PCP General Practice; Visit Provider Radiology Diagnostic Radiology | DX: Z12.31 Encounter for screening mammogram for malignant neoplasm of breast (principal) | CPT/HCPCS: 77063; 77067 ==

== ENCOUNTER 2024-01-01 09:52 | Outpatient (AMB) | payer MEDICAID, SELFPAY ==
--- NOTE | 2024-01-01 10:00 | MHC.OFFVIS ---
Vital Signs 01/01/24 10:12 Height 5 ft 10 in Weight 219 lb BMI 31.4 BP 109/56 L Blood Pressure Location Lt brachial Position Sitting Pulse 84 Intake Visit Reasons: Colonoscopy Screening Intake Note: Patient new consult for 1st pre colonoscopy screening Patient cc: GERD with burning sensation and some swallowing problems due her thyroid was remove. 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 female with past medical history of Graves disease, sickle cell disease, hypothyroidism, vitamin-D deficiency is here today for pre colonoscopy screening.? Patient was sent to us by her PCP.? Patient denies any gastrointestinal symptoms in the past or at present.? Patient reports acid reflux today. Patient states that she had no breakfast and had to coffee. Patient usually does not get reflux. Denies any dyspepsia, dysphagia or odynophagia. Denies any personal or family history of gastrointestinal disease, colon polyps, or cancer.? Denies history of difficulty with sedation or anesthesia in the past.? Negative for history of sleep apnea.? Denies any history of cardiac, renal, pulmonary, or hepatic disease.?? No history of infectious? diseases like hepatitis A, B, C, HIV or tuberculosis.? Patient is not on any anticoagulation therapy. 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 Review of Systems Const Denies weight gain and Denies weight loss ENT Reports no additional complaints, Denies dysphagia and Denies odynophagia Card Reports no additional complaints Resp Reports no additional complaints GI Denies abdominal pain, Denies belching, Denies melena, Denies bloating, Denies change in bowel habits, Denies dysphagia, Denies excessive flatus, Denies dyspepsia, Reports heartburn (today no breakfast had coffee), Denies diarrhea, Denies loose stools, Denies nausea, Denies odynophagia and Denies vomiting Musc Reports no additional complaints Neuro Reports no additional complaints Psych Reports no additional complaints Endo Reports no additional complaints Physical Exam Vital Signs: Last Vital Signs Pulse 84 01/01/24 10:12 BP 109/56 L 01/01/24 10:12 BMI result Body Mass Index 31.4 Const General: healthy appearing, no acute distress and well developed Nutritional Appearance: well nourished Orientation/consciousness: patient oriented x3 Resp Effort & Inspection: normal respiratory effort, able to speak in complete sentences, no tracheal deviation and symmetric chest movement Auscultation: clear to auscultation bilaterally Cardio Rate: regular rate GI Inspection: Yes normal to inspection and No distended Palpation (GI): Soft to palpation, not firm, nontender and No hepatosplenomegaly present Auscultation: normal bowel sounds General: Yes no CVA tenderness Back/Spine/Pelvis Back: no CVA tenderness Skin General skin exam: elasticity normal, turgor normal and dry skin Neuro General: patient oriented x3 Psych Appearance: grossly normal Mental Status: mental status grossly normal Assessment & Plan Assessment & Plan (1) Screen for colon cancer: Code(s): Z12.11 - Encounter for screening for malignant neoplasm of colon Plan Patient denies any GI, cardiac or respiratory symptoms. However patient reports that last month she had abdominal pain was seen at [facility] in the ER and was diagnosed with diverticulitis. Patient was placed on antibiotics. Patient reports paternal cousin was diagnosed with colorectal cancer in his 30s. ?Denies any issues with anesthesia in the past.? Denies any history of sleep apnea.? No history infectious diseases in the past or present.? Not on any anticoagulation therapy.? Patient denies melena, hematochezia, unintentional weight loss or ribbon like stools.? Discussed at length the pre-procedure,? prep, diet & medications as well as what to expect prior, during and after the procedure.?? Stressed the importance of good bowel prep. ?Recommended the use of Vaseline or Calmoseptine OTC & baby wipes with bowel movements to promote comfort.? ?Patient verbalizes understanding and agrees to plan of care.? She was given the opportunity to ask questions and all questions answered.? We will see her after the procedure.? Medications: New bisacodyl (Dulcolax (bisacodyl)) take 4 tabs at noon the day before your colonoscopy 20 mg (4 x 5 mg) PO ONCE 4 tabs 0RF 1 day Z12.11 - Encounter for screening for malignant neoplasm of colon polyethylene glycol 3350 (Miralax) As directed by gastroenterology department at [facility] 238 grams PO ONCE 238 grams 0RF Z12.11 - Encounter for screening for malignant neoplasm of colon Coding Level of Care Code New Pt Level 3 (35427) Diagnoses Screen for colon cancer Z12.11 Time Spent (min) 40 Comment 30 minutes spent with patient and additional 10 minutes spent reviewing her records
[2024-01-01 10:12] VITALS: BP 109/56; PULSE 84; BMI 31.4
== END 2024-01-01 10:49 | disposition home or self-care (01) ==
PROVIDERS: PCP General Practice; Visit Provider Nurse Practitioner Family
DX: Z12.11 Encounter for screening for malignant neoplasm of colon (principal); Z01.818 Encounter for other preprocedural examination
CPT/HCPCS: 99203

== ENCOUNTER → 2024-01-01 09:52 | Outpatient (BNVA) | payer MEDICAID, SELFPAY | PROVIDERS: PCP General Practice; Visit Provider Nurse Practitioner Family | DX: Z12.11 Encounter for screening for malignant neoplasm of colon (principal) | CPT/HCPCS: 99212 ==

== ENCOUNTER 2024-02-06 11:36 | Outpatient (AMB) | payer MEDICAID, SELFPAY ==
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
== END 2024-02-06 11:48 | disposition home or self-care (01) ==
PROVIDERS: PCP General Practice; Visit Provider Orthopaedic Surgery
DX: S83.242A Other tear of medial meniscus, current injury, left knee, initial encounter (principal)
CPT/HCPCS: 99214

== ENCOUNTER → 2024-02-06 11:36 | Outpatient (BNVA) | payer MEDICAID, SELFPAY | PROVIDERS: PCP General Practice; Visit Provider Orthopaedic Surgery | DX: S83.242A Other tear of medial meniscus, current injury, left knee, initial encounter (principal) | CPT/HCPCS: 99212 ==

== ENCOUNTER → 2024-02-22 11:05 | Outpatient (BNV) | payer MEDICAID, SELFPAY | PROVIDERS: PCP General Practice; Visit Provider Internal Medicine Cardiovascular Disease | DX: Z01.810 Encounter for preprocedural cardiovascular examination (principal); S83.242A Other tear of medial meniscus, current injury, left knee, initial encounter | CPT/HCPCS: 93010 ==

== ENCOUNTER 2024-03-07 05:54 | Day surgery (SDC) | payer MEDICAID, SELFPAY ==
[2024-02-22 10:35] VITALS: BP 111/65; PULSE 78; RESP 18; O2SAT 99; BMI 31.7
--- NOTE | 2024-02-22 11:05 | ECG_ITS ---
Test Reason : PREOP Blood Pressure : / mmHG Vent. Rate : 067 BPM Atrial Rate : 067 BPM P-R Int : 172 ms QRS Dur : 098 ms QT Int : 414 ms P-R-T Axes : 078 075 066 degrees QTc Int : 437 ms Normal sinus rhythm Normal ECG When compared to the previous EKG of No significant changes seen Referred By: Laura Newton Electronically Signed By:NILES TAVERAS MD
[2024-02-25 10:45] LABS: MANUAL DIFF FLAG NO
[2024-02-25 11:04] LABS: Eosinophils Absolute Auto 0.1 X10*3/uL (0.0-0.4); Eosinophils Percent Auto 2.1 % (0-4); Hemoglobin 11.8 g/dl (12.0-16.0); Imm Gran Abs Auto 0.01 X10*3/uL (0.00-0.03); Imm Gran Pct Auto 0.3 % (0.0-0.4); Lymphocytes Absolute Auto 1.3 X10*3/uL (1.2-4.9); Lymphocytes Percent Auto 32.6 % (20-40); Mean Corpuscular HGB Conc 33.7 g/dl (31.0-35.0); Mean Corpuscular Hemoglobin 27.1 pg (27.0-33.0); Mean Corpuscular Volume 80.3 fL (80.0-98.0); Mean Platelet Volume 10.8 fL (9.4-12.3); Monocytes Absolute Auto 0.5 X10*3/uL (0.1-1.2); Monocytes Percent Auto 11.6 % (2-11); Neutrophils Percent Auto 52.4 % (45-73); Platelet Count 192 X10*3/uL (160-400); Red Blood Count 4.36 X10*6/uL (4.20-5.50); Red Cell Distribution Width 14.1 % (11.0-16.0); White Blood Count 3.9 X10*3/uL (4.8-10.8)
[2024-02-25 11:33] LABS: Anion Gap 14 (12-20); Blood Urea Nitrogen 13 mg/dL (9-16); Calcium 8.7 mg/dL (8.4-10.2); Carbon Dioxide 21 mmol/L (22-29); Chloride 109 mmol/L (96-108); Creatinine Clr Calc Pharmacy 104.6; Estimated Glomerular Filt Rate > 60; Glucose Random 89 mg/dL (60-115); Potassium 4.2 mmol/L (3.3-5.1); Sodium 140 mmol/L (135-145)
[2024-03-07] VITALS (13 sets, daily range): BP systolic 104–147; BP diastolic 54–80; PULSE 45–86; RESP 16–20; TEMP 36.3–36.6; O2SAT 94–100; BMI 31.6
[2024-03-07] MEDS: Lactated Ringers 1,000 ML 50 ML IVCONT (06:45)
--- NOTE | 2024-03-07 07:21 | HO.ANESPROP2 ---
HPI - Anesthesia Eval Consult details Narrative: 43 yo F presenting for left knee arthroscopy PMFSH Active Problems Active Problems: All Active Problems Tear of medial meniscus of left knee (Acute) History of Graves' disease (Acute) Sickle cell disease (Acute) Vitamin D deficiency (Acute) Hypothyroidism (Acute) Past Medical History Medical History (Updated 02/22/24 @ 10:24 by Arlette Lehman RN) Hx of transfusion of packed red blood cells Diverticulitis Bruises easily Depression Sleep apnea Hyperlipidemia PCOS (polycystic ovarian syndrome) Obesity Degenerative disc disease, lumbar Anemia History of Graves' disease Sickle cell disease Vitamin D deficiency Hypothyroidism Family History Family History Mother Diabetes Alzheimer disease Parkinson disease Father Prostate cancer Family history of problems with anesthesia: No Surgical History Surgical History Hx of knee surgery Hx of neck surgery Hx of total thyroidectomy Hx of appendectomy Hx of tubal ligation History of Problems with Anesthesia: No Social History Social History Are you a primary director day care center to a significant other at home: No Do you presently have visiting nurse or other home services: No Alcohol intake: current Alcohol intake frequency: holidays/special occasions only Patient Tobacco Use Status: Current everyday Tobacco user Cigarettes Per Day: 10 Use of substances other than those prescribed or required for medical reasons: Yes Substance Use Frequency: Daily Have you been hit, kicked, punched, or otherwise hurt by someone within the past year? 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 Meds Allergies Allergy/AdvReac Type Severity Reaction Status Date / Time No Known Drug Allergies Allergy Mild NONE Verified 03/07/24 06:11 [NO KNOWN DRUG ALLERGIES] Active Medications: Current Medications Lactated Ringer's (Lr) 1,000 mls @ 50 mls/hr IVCONT .Q20H LUKASZ Last Admin: 03/07/24 06:45 Dose: 50 mls/hr Home Medications ?Medication ?Instructions ?Recorded ?Confirmed ?Last Taken ?Type buspirone 10 mg tablet 10 mg PO BID anxiety 12/04/22 02/22/24 03/07/24 History fluoxetine 20 mg capsule 20 mg PO DAILY 12/04/22 02/22/24 Unknown History lorazepam 0.5 mg tablet 0.5 mg PO BID PRN Anxiety 12/04/22 02/22/24 Unknown History naproxen 500 mg tablet 500 mg PO BID PRN mild pain 12/04/22 02/22/24 03/02/24 History trazodone 50 mg tablet 50 mg PO BEDTIME PRN Insomnia 12/04/22 02/22/24 Unknown History Exam Exam Date and Time: March 07, 2024719 Height,Weight and Vital Signs: Height 5 ft 10 in Weight 99.79 kg Last Vital Signs Temp 97.3 F 03/07/24 06:17 Pulse 75 03/07/24 06:17 Resp 18 03/07/24 06:17 BP 109/62 03/07/24 06:17 Pulse Ox 98 03/07/24 06:17 O2 Del Method Room Air 03/07/24 06:17 Pertinent Lab Results Pertinent Lab Results: Laboratory Tests 02/25/24 10:38 WBC 3.9 L RBC 4.36 Hgb 11.8 L Hct 35.0 L MCV 80.3 MCH 27.1 MCHC 33.7 RDW 14.1 Plt Count 192 MPV 10.8 Immature Gran % (Auto) 0.3 Neut % (Auto) 52.4 Lymph % (Auto) 32.6 [place] % (Auto) 11.6 H Eos % (Auto) 2.1 Baso % (Auto) 1.0 Lymph # (Auto) 1.3 [place] # (Auto) 0.5 Eos # (Auto) 0.1 Baso # (Auto) 0.0 Abs Immat Gran (auto) 0.01 Absolute Neuts (auto) 2.0 Absolute Nucleated RBC 0.000 Nucleated RBC % (auto) 0.0 Sodium 140 Potassium 4.2 Chloride 109 H Carbon Dioxide 21 L Anion Gap 14 BUN 13 Creatinine 0.87 Estim Creat Clear Calc 104.6 Estimated GFR > 60 Random Glucose 89 Calcium 8.7 Airway Mallampati Class: I TM Dist: >3cm Neck ROM: Full Loose/Missing/Broken Teeth: No (patient denies any loose or broken teeth) Heart: S1S2 Lungs: CTAB Assessment and Plan Assessment Anesthesia Assessment: Anesthesia Plan Discussed and Chart Reviewed Final Anesthetic Review Family History of Problems with Anesthesia: No History of Problems with Anesthesia: No NPO: Yes ASA Class: II Final Preanesthetic Review: No Changes in Pt Med Stat, Meds/Allgs Chart Reviewed, Consent Obtained/Reviewed and Anes Risks/Benef Reviewed Patient Risk: Low Procedure Risk: Low Anesthetic Plan Anesthetic Plan: GA and Agree w/ Assess. and Plan Disposition: Standard PACU
--- NOTE | 2024-03-07 08:39 | P.BOP_ITS ---
Brief Operative Note Date of Service: 03/07/24 Pre-op diagnosis: Left knee medial meniscus tear, left knee degenerative joint disease Post-op diagnosis: other (Left knee medial meniscus tear, left knee degenerative joint disease, left knee lateral meniscus tear) Procedure: Left knee diagnostic arthroscopy with arthroscopic partial medial and lateral meniscectomies, chondroplasty of the undersurface of the patella Implants: none Surgeon: Yanick Li MD Anesthesia: GLMA Was an Water Regulator And Valve Repairer used for this Procedure?: No Estimated blood loss (mL): 10 Pathology: none sent Condition: stable Disposition: PACU
--- NOTE | 2024-03-07 08:40 | W.PM.OPN ---
Operative Note Operative Note Date of Service: 03/07/24 Narrative: After the patient was identified as Ita Packer and her left knee was initialed by myself they were brought to the operating room where general anesthesia was induced by the anesthesiologist in routine fashion. The patient was given 2 g of IV Ancef preoperatively for infection prophylaxis. The patient's left lower extremity was prepped and draped in sterile fashion. A formal time-out was completed. Marcaine was injected into the planned incision sites as well as the patient's left knee joint. A #11 scalpel blade was used to make an anterolateral portal 1 cm proximal to the joint line and 1 cm lateral to the patellar tendon. Blunt trocar technique was used to enter the suprapatellar pouch with the knee in extension. Diagnostic arthroscopy showed multiple bands of thickened plica which would be excised at the end of the procedure. There were no loose bodies or abnormalities found in either the medial or lateral gutters. The articular surface of the patella showed diffuse grades 1 and 2 degenerative changes. The trochlear groove articular surface showed diffuse grade 1 degenerative changes. The patient's knee was flexed to 45 degrees and a valgus force was placed upon it. The medial compartment was entered. An anteromedial portal was made 1 cm proximal to the joint line and 1 cm medial to the patellar tendon. Probing of the medial meniscus showed a radial tear of the anterior horn. A partial medial meniscectomy was performed using the arthroscopic shaver. Following the partial meniscectomy the remainder of the meniscus tissue was stable. There were diffuse grades 1 and 2 degenerative changes of the medial femoral condyle as well as grade 1 degenerative changes of the medial tibial plateau. The articular surfaces of the medial tibial plateau and medial femoral condyle were smooth so no chondroplasty was indicated. The patient's knee was placed into a neutral position. There was no injury to the anterior cruciate ligament. The patient's knee was then placed in the figure of 4 position and the lateral compartment was entered. There was a radial tear of the anterior horn of the lateral meniscus. A partial lateral meniscectomy was performed using the arthroscopic shaver. Following the partial meniscectomy the remainder of the meniscus tissue was stable. There were minimal degenerative changes of the lateral femoral condyle and lateral tibial plateau. The patient's knee was once again brought into extension and the suprapatellar pouch was entered. The arthroscopic shaver and the ArthroCare Wand were used to excise the thickened bands of plica. The undersurface of the patella was then made smooth using the arthroscopic shaver. The articular surface of the trochlear groove was already smooth so no chondroplasty was indicated. The knee joint was irrigated and then drained. All arthroscopic instruments were removed. The 2 portals were closed with 3-0 nylon interrupted suture. The knee joint was injected with Marcaine. Dry sterile dressing and Allen bandages were placed over the patient's knee. The patient was awoken and extubated in the operating room. The patient was transferred to the recovery room in stable condition.
[2024-03-07] MEDS: fentaNYL citrate/PF 100 MCG/2 ML VIAL 50 MCG IVPUSH ×2 (08:43→08:55)
[2024-03-07] MEDS: cefTRIAXone sodium 1 GM in 0.9 % Sodium Chloride 50 ML IV (09:00)
[2024-03-07] MEDS: oxyCODONE HCl Immed Release 5 MG TABLET PO (09:56)
[2024-03-07] MEDS: Acetaminophen 325 MG TABLET 650 MG PO (09:57)
[2024-03-07] MEDS: Haloperidol Lactate 5 MG/ML VIAL 1 MG IVPUSH (10:05)
[2024-03-07] MEDS: Ondansetron ODT 4 MG TAB.RAPDIS TRANSLINGU (10:41)
== END 2024-03-07 10:50 | disposition home or self-care (01) ==
PROVIDERS: Anesthesiology; PCP General Practice; Visit Provider Orthopaedic Surgery
PROC: (CPT 29870; principal; 2024-03-07 07:30)
DX: S83.242A Other tear of medial meniscus, current injury, left knee, initial encounter (principal); S83.282A Other tear of lateral meniscus, current injury, left knee, initial encounter; X50.1XXA Overexertion from prolonged static or awkward postures, initial encounter; Y93.9 Activity, unspecified; Y92.9 Unspecified place or not applicable; Y99.8 Other external cause status; M67.52 Plica syndrome, left knee; M17.12 Unilateral primary osteoarthritis, left knee; E05.00 Thyrotoxicosis with diffuse goiter without thyrotoxic crisis or storm; E03.9 Hypothyroidism, unspecified; D57.1 Sickle-cell disease without crisis; E55.9 Vitamin D deficiency, unspecified; Z79.1 Long term (current) use of non-steroidal anti-inflammatories (NSAID); Z79.899 Other long term (current) drug therapy; Z98.890 Other specified postprocedural states; F17.210 Nicotine dependence, cigarettes, uncomplicated
CPT/HCPCS: 29880; 29876; 36415; 80048; 85025; 93005; J0171; J0690; J0696; J1100; J1170; J1630; J1885; J2250; J2405; J2704; J2795; J3010

== ENCOUNTER → 2024-03-07 05:54 | Outpatient (BNV) | payer MEDICAID, SELFPAY | PROVIDERS: PCP General Practice; Visit Provider Orthopaedic Surgery | DX: S83.242A Other tear of medial meniscus, current injury, left knee, initial encounter (principal); S83.282A Other tear of lateral meniscus, current injury, left knee, initial encounter | CPT/HCPCS: 29880 ==

== ENCOUNTER 2024-03-21 11:25 | Outpatient (AMB) | payer MEDICAID, SELFPAY ==
--- NOTE | 2024-03-21 11:26 | MHC.OFFVIS ---
Intake Visit Reasons: PO Left knee 03/07/24 Intake Note: Izabela is a 43 year old female who presents to the office today for a PO left knee . Pt states she is feeling well but states if she moves a certain way she feels a shock in her knee. Sutures removed in office. Allergies No Known Drug Allergies [NO KNOWN DRUG ALLERGIES] Allergy (Mild, Verified 03/21/24 11:29) NONE HPI HPI PO Left knee 03/07/24 DR: Details: 43-year-old female who returns to the office today for post-op left knee , 03/07/[address] Li. She states she feels a shock sensation in her knee with movement however she is doing well otherwise. She has no other concerns today. [facility] Medical History (Updated 02/22/24 @ 10:24 by Arlette Lehman RN) Hx of transfusion of packed red blood cells Diverticulitis Bruises easily Depression Sleep apnea Hyperlipidemia PCOS (polycystic ovarian syndrome) Obesity Degenerative disc disease, lumbar Anemia History of Graves' disease Sickle cell disease Vitamin D deficiency Hypothyroidism Surgical History Hx of knee surgery Hx of neck surgery Hx of total thyroidectomy Hx of appendectomy Hx of tubal ligation Family History Mother Diabetes Alzheimer disease Parkinson disease Father Prostate cancer Social History Are you a primary caregivers homecare to a significant other at home: No Do you presently have visiting nurse or other home services: No Alcohol intake: current Alcohol intake frequency: holidays/special occasions only Patient Tobacco Use Status: Current everyday Tobacco user Cigarettes Per Day: 10 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 No erythema. Mild swelling around the knee. ROM is 5-85 degrees. Calf supple, nontender. NVI. Results Reviewed Results Reviewed: Brief Operative Note Date of Service: 03/07/24 Pre-op diagnosis: Left knee medial meniscus tear, left knee degenerative joint disease Post-op diagnosis: other (Left knee medial meniscus tear, left knee degenerative joint disease, left knee lateral meniscus tear) Procedure: Left knee diagnostic arthroscopy with arthroscopic partial medial and lateral meniscectomies, chondroplasty of the undersurface of the patella Implants: none Surgeon: Yanick Li MD Assessment & Plan Assessment & Plan (1) Tear of medial meniscus of left knee: Code(s): S83.242A - Other tear of medial meniscus, current injury, left knee, initial encounter Category: Medical Plan Sutures removed today, steri strips applied. We did work on some ROM techniques in the office today. I also encouraged working on physical therapy therefore an order was placed today. She will remain out of work till I see her back in [address] Li, sooner if needed. Orders: Orders PT Evaluation and Treatment Today S83.242A - Other tear of medial meniscus, current injury, left knee, initial encounter Patient Instructions: Scribed for Alejandro Padilla PA-C, by Theron Fountain medical transcription editor, on 03/21/2024 at 11:30 AM EST.? I, Alejandro Padilla PA-C, have personally reviewed and agree with the information entered by the scribe. Coding Level of Care Code Global (03672) Diagnoses Tear of medial meniscus of left knee S83.242A
== END 2024-03-21 11:55 | disposition home or self-care (01) ==
PROVIDERS: PCP General Practice; Visit Provider Physician Assistant
DX: S83.242A Other tear of medial meniscus, current injury, left knee, initial encounter (principal)
CPT/HCPCS: 99024

== ENCOUNTER → 2024-03-21 11:25 | Outpatient (BNVA) | payer MEDICAID, SELFPAY | PROVIDERS: PCP General Practice; Visit Provider Physician Assistant | DX: S83.242D Other tear of medial meniscus, current injury, left knee, subsequent encounter (principal) | CPT/HCPCS: 99212 ==

== ENCOUNTER 2024-04-08 10:49 | Outpatient (RCR) | payer MEDICAID, SELFPAY ==
--- NOTE | 2024-06-05 14:59 | MHC.PT.DC ---
[facility] [place] [facility] [place] [facility] [place] [facility] [address] Dmitry Jeronimo [address] [facility] [phone] F: [phone] F: [phone] F: [phone] F: [phone] Physical Therapy Discharge Report Diagnosis: Tear of L medial meniscus Date of Surgery: 03/07/2024 Date of Evaluation: 04/08/24 Date of Discharge: 06/05/24 Treatments to Date: 1 Cancellations to Date: No Shows to Date: Discharge Status: Patient Elected to Stop Visit Non-compliance Discharge Summary: Pt did not trial physical therapy logging 1 cancellation and 3 no show appointments. Electronically signed by: Raul Diaz PT. Please sign and return to therapist. Thank you for your referral.
== END 2024-06-05 14:59 | disposition home or self-care (01) ==
LOC: HO.PT 10:49
PROVIDERS: PCP General Practice; Visit Provider Physician Assistant
DX: S83.242D Other tear of medial meniscus, current injury, left knee, subsequent encounter (principal)
CPT/HCPCS: 97110; 97161

== ENCOUNTER 2024-04-16 10:12 | Outpatient (AMB) | payer MEDICAID, SELFPAY ==
--- NOTE | 2024-04-16 10:20 | MHC.OFFVIS ---
Intake Visit Reasons: PO-4wk f/u Left knee 03/07/24 Intake Note: Izabela is a 43 year old female who presents to the office today for a PO-4wk f/u Left knee 03/07/24 . Pt states her left knee is doing well. She reports mild intermittent discomfort in her left knee. She denies any fevers or chills. Allergies No Known Drug Allergies [NO KNOWN DRUG ALLERGIES] Allergy (Mild, Verified 04/16/24 10:20) NONE Medication List - Last Reconciled 04/16/24 by Yanick Li MD bisacodyl (Dulcolax (bisacodyl)) 20 mg (4 x 5 mg) PO ONCE 1 day buspirone 10 mg PO BID fluoxetine 20 mg PO DAILY levothyroxine 150 mcg PO DAILY lorazepam 0.5 mg PO BID PRN naproxen 500 mg PO BID PRN polyethylene glycol 3350 (Miralax) 238 grams PO ONCE trazodone 50 mg PO BEDTIME PRN PFSH Medical History (Updated 04/16/24 @ 12:41 by Yanick Li MD) Hx of transfusion of packed red blood cells Diverticulitis Bruises easily Depression Sleep apnea Hyperlipidemia PCOS (polycystic ovarian syndrome) Obesity Degenerative disc disease, lumbar Anemia History of Graves' disease Sickle cell disease Vitamin D deficiency Hypothyroidism Surgical History Hx of knee surgery Hx of neck surgery Hx of total thyroidectomy Hx of appendectomy Hx of tubal ligation Family History Mother Diabetes Alzheimer disease Parkinson disease Father Prostate cancer Social History Are you a primary body care manager to a significant other at home: No Do you presently have visiting nurse or other home services: No Alcohol intake: current Alcohol intake frequency: holidays/special occasions only Patient Tobacco Use Status: Current everyday Tobacco user Cigarettes Per Day: 10 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 Joni Petersen continues to do well after undergoing left knee arthroscopic surgery on 03/07/2024. She will continue to progress to activities as tolerated. She will contact me prior to her follow-up appointment in 2 months should any questions or concerns arise. Feel free to call me at any time should questions regarding her orthopedic management arise. Coding Level of Care Code Global (23032) Diagnoses Left knee pain M25.562
== END 2024-04-16 10:42 | disposition home or self-care (01) ==
PROVIDERS: PCP General Practice; Visit Provider Orthopaedic Surgery
DX: M25.562 Pain in left knee (principal)
CPT/HCPCS: 99024

== ENCOUNTER → 2024-04-16 10:12 | Outpatient (BNVA) | payer MEDICAID, SELFPAY | PROVIDERS: PCP General Practice; Visit Provider Orthopaedic Surgery | DX: M25.562 Pain in left knee (principal); Z47.89 Encounter for other orthopedic aftercare; Z87.39 Personal history of other diseases of the musculoskeletal system and connective tissue | CPT/HCPCS: 99212 ==

== ENCOUNTER 2024-12-19 11:03 | Outpatient (REF) | payer MEDICAID, SELFPAY ==
--- OUTSIDE RECORDS SUMMARY | 2024-12-19 12:09 | XMS_ITS | Encounter Summary ---
Author Organization [email or web address] Address [address] [facility] [address] [place] [address] Care Team Providers Care Floors Buffer Name Role Phone Lawanda Styles MD Primary Care Provider [phone] Encounter Details Date Type Department Care Team (Latest Contact Info) Description 12/19/2024 Travel Social History Tobacco Use Types Packs/Day Years Used Date Smoking Tobacco: Every Day Cigarettes 0.5 30 Passive Smoke Exposure: Current Smokeless Tobacco: Never Alcohol Use Standard Drinks/Week Comments Not Currently 0 (1 standard drink = 0.6 oz pur e alcohol) oca Depression Answer Date Recorded Patient Health Questionnaire-9 Score 2 12/19/2024 Patient Health Questionnaire-9 Score 2 12/19/2024 Last PHQ-9: Questionnaire Data Not on file 0 12/19/2024 Housing Stability Answer Date Recorded What is your housing situation today? I have rene lilly 12/11/[address] you li ve. Do you have problems with any of the following? None of the above 12/11/2024 Food Insecurity Answer Date Recorded Within the past 12 months, y ou worried that your food would run out before you got money to buy more: Never True 12/11/2024 Within the past 12 months,th e food you bought just didn't last and you didn't have enough money to get more: Never True 06/2025 Transportation Answer Date Recorded In the past 12 months, has l ack of transportation kept you from medical appts, meetings, work or from getting things needed for daily living? No 12/11/2024 Utilities Answer Date Recorded In the past 12 months, has t he electric, gas, oil or water company threatened to shut off services in your home? Yes 12/11/2024 Depression Answer Date Recorded Patient Health Questionnaire-2 Score 1 12/19/2024 Internet Access Answer Date Recorded Internet Access Q1 Yes 12/11/2024 Internet Access Q2 Not on file 12/11/2024 Comments No Sex and Gender Information Value Date Recorded Sex Assigned at Female 07/03/2022 10:22 AM EDT Legal Sex Female 10:22 AM EDT Gender Identity Female 07/03/2022 10:22 AM EDT Sexual Orientation Straight 07/03/2022 10 :22 AM EDT documented as of this encounter Plan of Treatment Not on file documented as of this encounter Visit Diagnoses Not on filedocumented in this encounter Additional Health Concerns Assessment Noted Time PHQ-9 Depression Total Score: 2 12/20/19 25 10:27 AM EDT documented as of this encounter Care Teams Floors Buffer Relationship Specialty Start Date End Date Lawanda Styles MD [address] [place] [id number] PCP - General Family Medicine 06/02/22 documented as of this encounter
--- OUTSIDE RECORDS SUMMARY | 2024-12-19 12:09 | XMS_ITS | Encounter Summary ---
Author Organization [facility] Address [address] [facility] 7t [place] [address] Care Team Providers Care Instructor Warper Name Role Phone Lawanda Styles MD Primary Care Provider [phone] Encounter Details Date Type Department Care Team (Late st Contact Info) Description 09/13/2022 Abstract [facility] [address] [place], [place] [phone] Radha Suarez, ROLAND [address] [place] [address] Social History Tobacco Use Types Packs/Day Years Used Date Smoking Tobacco: Every Day Cigarettes 0.5 30 Comments No Sex and Gender Information Value Date Recorded Sex Assigned at Female 07/03/2022 10:22 AM EDT Legal Sex Female 10:22 AM EDT Gender Identity Female 07/03/2022 10:22 AM EDT Sexual Orientation Straight 07/03/2022 10 :22 AM EDT COVID-19 Exposure Response Date Recorded In the last 10 days, have yo u been in contact with someone who was confirmed or suspected to have Coronavirus/COVID-19? No / Unsure 08/21/2022 10:47 AM EST documented as of this encounter Plan of Treatment Not on file documented as of this encounter Procedures Procedure Name Priority Date/Time Associated Diagnosis Comments MAMMOGRAPHY Routine 09/09/2022 documented in this encounter Results * Mammography (09/09/2022) Mammogram Birads 1: Negative Recommendation- Annual mammography screening Comment:BIRADS 1:Negative Anatomical Region Laterality Modality Other us Historical Provider HEALTH MAINTENANCE Final Result documented in this encounter Visit Diagnoses Not on filedocumented in this encounter Care Teams Instructor Warper Relationship Specialty Start Date End Date Lawanda Styles MD [address] [place] [address] PCP - General Family Medicine 06/02/22 documented as of this encounter
--- OUTSIDE RECORDS SUMMARY | 2024-12-19 12:10 | XMS_ITS | Encounter Summary ---
Author Organization [employer] Address [address] [facility] 7 [place] [address] Care Team Providers Care Yarn Spinner Name Role Phone Lawanda Styles MD Primary Care Provider [phone] Reason for Visit * Reason Onset Date Comments chart prep 12/18/2024 Encounter Details Date Type Department Care Team ([facility] st Contact Info) Description 12/18/2024 Telephone [facility] [address] [place], [place] [phone] Lawanda Styles MD [address] [place], [place] [phone] chart prep Social History Tobacco Use Types Packs/Day Years [...] AM EDT documented as of this encounter Miscellaneous Notes * Telephone Encounter - Mary Kirby MA - 12/18/2024 11:25 AM EDT Chart Prep Labs: not applicable Images: not applicable Referrals: complete Vaccines due: yes Screenings: colonoscopy and LMP Overdue care gaps: PHQ-9, SHAVON-7, Disability screen, and Tobacco documented in this encounter Plan of Treatment Not on file documented as of this encounter Visit Diagnoses Not on filedocumented in this encounter Additional Health Concerns Assessment Noted Time PHQ-9 Depression Total Score: 10 024 1:39 PM EDT documented as of this encounter Care Teams Yarn Spinner Relationship Specialty Start Date End Date Lawanda Styles MD [address] [place] [address] PCP - General Family Medicine 06/02/22 documented as of this encounter
--- OUTSIDE RECORDS SUMMARY | 2024-12-19 12:10 | XMS_ITS | Clinical Summary ---
Author Organization [facility] Address [address] [place] [address] Care Team Providers Care Forensic Computer Examiner Name Role Phone Unavailable Primary Care Provider Unavailabl e Social History Tobacco Use Types Packs/Day Years Used Date Smoking Tobacco: Never Assessed Comments Unknown Sex and Gender Information Value Date Recorded Sex Assigned at Not on file Legal Sex Female 4:28 AM EST Gender Identity Not on file Sexual Orientation Not on file Plan of Treatment Health Maintenance Due Date Last Done Comments Breast Cancer Screening 1978 Hepatitis B Vaccines (1 of 3 - 19+ 3-dose series) 1997 Cervical Cancer Screening: P ap Smear 11/16/1999 Colorectal Cancer Screening: Colonoscopy 08/06/2022 Depression Screening 08/06/2022 HIV Screening 08/06/2022 Hepatitis C Screening 08/06/2022 Social Influencers of Health Screening 08/06/2022 COVID-19 Vaccine ( - 2023-2 5 season) 2024 Influenza Vaccine (Season Ended) 2025 DTaP,Tdap,and Td Vaccines (2 - Td or Tdap) 07/04/2032 07/04/2022 HIB Vaccines Aged Out No longer eligi ble based on patient's age to complete this topic HPV Vaccines Aged Out No longer eligi ble based on patient's age to complete this topic Hepatitis A Vaccines Aged Out No long er eligible based on patient's age to complete this topic IPV Vaccines Aged Out No longer eligi ble based on patient's age to complete this topic MMR Vaccines Aged Out No longer eligi ble based on patient's age to complete this topic Meningococcal ACWY Vaccine Aged Out N o longer eligible based on patient's age to complete this topic Meningococcal B Vaccine Aged Out No l onger eligible based on patient's age to complete this topic Pneumococcal Vaccine: Pediat rics (0 to 5 Years) and At-Risk Patients (6 to 64 Years) Aged Out No longer eligi ble based on patient's age to complete this topic RSV Immunization Patients Un anita 20 months Aged Out No longer eligible b ased on patient's age to complete this topic Varicella Vaccines Aged Out No longer eligible based on patient's age to complete this topic
--- OUTSIDE RECORDS SUMMARY | 2024-12-19 12:10 | XMS_ITS | Encounter Summary ---
Author Organization [employer] Address [address] [facility] [address] [place] [address] Care Team Providers Care Refrigeration Service Inspector Name Role Phone Lawanda Styles MD Primary Care Provider [phone] Reason for Visit * Reason Comments Care Coordination CHW outreach for SDO H utilities and food needs-referral completed Encounter Details Date Type Department Care Team (Latest Contact Info) Description 12/15/2024 Patient Outreach [facility] [address] [place] [address] Conner Garcia Care Coordination (CH[facility] outreach for SDOH utilities and food needs-referral completed /) Social History Tobacco Use Types Packs/Day Years Used Date Smoking Tobacco: Every Day Cigarettes 0.5 30 Passive Smoke Exposure: Current Smokeless Tobacco: Never Alcohol Use Standard Drinks/Week Comments Not Currently 0 (1 standard drink = 0.6 oz pur e alcohol) oca Depression Answer Date Recorded Patient Health Questionnaire-9 Score 10 12/10/2023 Patient Health Questionnaire-9 Score 10 12/10/2023 Last PHQ-9: Questionnaire Data Not on file 0 12/10/2023 Housing Stability Answer Date Recorded What is [...] Answer Date Recorded Patient Health Questionnaire-2 Score 2 12/10/2023 Internet Access Answer Date Recorded Internet Access Q1 Yes 12/11/2024 Internet Access Q2 Not on file 12/11/2024 Comments No Sex and Gender Information Value Date Recorded Sex Assigned at Female 07/03/2022 10:22 AM EDT Legal Sex Female 10:22 AM EDT Gender Identity Female 07/03/2022 10:22 AM EDT Sexual Orientation Straight 07/03/2022 10 :22 AM EDT documented as of this encounter Progress Notes * Conner Garcia - 12/15/2024 10:00 AM EDT CHW Conner Garcia, placed outbound call to patient for assistance with SDOH as a referral was received by the provider. Patient's name and were confirmed. Patient screened positive for the following SDOH utilities & food insecurities. CHW referred patient to the [facility] and the [facility] for more resources. Also patient was referred to [facility] pantries in the local area. Patient agree to follow up with plan. Patient educated on extended clinic hours on Mondays through Wednesdays, and Walk-In Urgent Care Located in [facility]. Patient provided with after- hours line for [facility], , which offer night time triage service and option to transfer to spa consultant provider if needed documented in this encounter Plan of Treatment Not on file documented as of this encounter Visit Diagnoses Not on filedocumented in this encounter Additional Health Concerns Assessment Noted Time PHQ-9 Depression Total Score: 10 024 1:39 PM EDT documented as of this encounter Care Teams Refrigeration Service Inspector Relationship Specialty Start Date End Date Lawanda Styles MD [address] [place] [address] PCP - General Family Medicine 06/02/22 documented as of this encounter
--- OUTSIDE RECORDS SUMMARY | 2024-12-19 12:10 | XMS_ITS | Encounter Summary ---
Author Organization [employer] Address [address] [facility] [address] [place] [address] Care Team Providers Care Acid Bleacher Name Role Phone Lawanda Styles MD Primary Care Provider [phone] Reason for Visit * Reason Comments Annual Exam Pt would like to be referred to GI & OBGYN, also wants to get her left knee checked; has been experiencing inflammation since November 20; as well as getting routine blood work and STI testing; pt notices that when her anxiety is heightened she feels a weird like shock run through her chest Encounter Details Date Type Department Care Team (Latest Contact Info) Description 12/19/2024 10:30 AM EDT Office Visit [facility] [address] [place] [address] Lawanda Styles MD [address], [place] [phone] Postoperative hypothyroidism (Primary Dx); Dietary counseling; Exercise counseling; Class 1 obesity without serious comorbidity with body mass index (BMI) of 33.0 to 33.9 in adult, unspecified obesity type; Acute pain of right knee; Routine screening for STI (sexually transmitted infection) Social History Tobacco Use Types Packs/Day Years [...] AM EDT documented as of this encounter Last Filed Vital Signs Vital Sign Reading Time Taken Comments Blood Pressure 120/76 12/19/2024 10:22 AM EDT Pulse 87 12/19/2024 10:22 AM EDT Temperature - - Respiratory Rate 20 12/19/2024 10:22 AM EDT Oxygen Saturation 99% 12/19/2024 10:22 AM EDT Inhaled Oxygen Concentration - - Weight 106 kg (234 lb 3.2 oz) 12/19/2024 10:22 A M EDT Height 179.1 cm (5' 10.5 ) 12/19/2024 10:22 AM E DT Body Mass Index 33.13 12/19/2024 10:22 AM EDT documented in this encounter Plan of Treatment Scheduled Orders Name Type Priority Associated Diagnoses Orde r Schedule TSH W/Reflex to FT4 Lab Routine Postoperative hypothyroidism Expected: 12/19/2024 (Approximate), Expires: 12/19/2025 Comprehensive Metabolic Panel Lab Routine Class 1 obesity without serious comorbidity with body mass index (BMI) of 33.0 to 33.9 in adult, unspecified obesity type Expected: 12/19/2024 (Approximate), Expires: 12/19/2025 Lipid Panel, Standard Lab Routine Class 1 obesity without serious comorbidity with body mass index (BMI) of 33.0 to 33.9 in adult, unspecified obesity type Expected: 12/19/2024 (Approximate), Expires: 12/19/2025 Hemoglobin A1c Lab Routine Class 1 obesity without serious comorbidity with body mass index (BMI) of 33.0 to 33.9 in adult, unspecified obesity type Expected: 12/19/2024 (Approximate), Expires: 12/19/2025 Chlamydia/N. Gonorrhoeae RNA, TMA, Urogenitial Microbiology Routine Routine screening for STI (sexually transmitted infection) Expected: 12/19/2024 (Approximate), Expires: 12/19/2025 RPR (Monitor) with Reflex to??Titer Lab Routine Routine screening for STI (sexually transmitted infection) Expected: 12/19/2024, Expires: 12/19/2025 HIV-1/2 Antigen and Antibodies, Fourth Generation, with Reflexes Lab Routine Routine screening for STI (sexually transmitted infection) Expected: 12/19/2024 (Approximate), Expires: 12/19/2025 Hepatitis C Antibody with Reflex to HCV, RNA, Quantitative, Real-Time PCR Lab Routine Routine screening for STI (sexually transmitted infection) Expected: 12/19/2024, Expires: 12/19/2025 documented as of this encounter Visit Diagnoses Diagnosis Postoperative hypothyroidism- Primary Postsurgical hypothyroidism Dietary counseling Dietary surveillance and counseling Exercise counseling Class 1 obesity without serious comorbidity with body mass index (BMI) of 33.0 to 33.9 in adult, unspecified obesity type Acute pain of right knee Routine screening for STI (sexually transmitted infection) Screening examination for venereal disease documented in this encounter Additional Health Concerns Assessment Noted Time PHQ-9 Depression Total Score: 2 12/20/19 25 10:27 AM EDT documented as of this encounter Care Teams Acid Bleacher Relationship Specialty Start Date End Date Lawanda Styles MD [address] [place] [phone] PCP - General Family Medicine 06/02/22 documented as of this encounter
--- OUTSIDE RECORDS SUMMARY | 2024-12-19 12:10 | XMS_ITS | Encounter Summary ---
Author Organization [employer] Address [address] [facility] [address] [place] [address] Care Team Providers Care Route Agent Name Role Phone Lawanda Styles MD Primary Care Provider [phone] Reason for Visit * Reason Comments Med Refill Encounter Details Date Type Department Care Team ([facility] st Contact Info) Description 09/24/2023 Refill [facility] [address] [place] [phone] Lawanda Styles MD [address] [place], [place] [phone] Acute pain of right knee Social History Tobacco Use Types Packs/Day Years Used Date Smoking Tobacco: Every Day Cigarettes 0.5 30 Passive Smoke Exposure: Current Smokeless Tobacco: Never Alcohol Use Standard Drinks/Week Comments Never 0 (1 standard drink = 0.6 oz pur e alcohol) Depression Answer Date Recorded Patient Health Questionnaire-9 Score 17 01/19/2023 Housing Stability Answer Date Recorded What is your housing situation today? I have rene lilly 07/02/[address] you li ve. Do you have problems with any of the following? None of the above 07/02/2023 Food Insecurity Answer Date Recorded Within the past 12 months, y ou worried that your food would run out before you got money to buy more: Never True 07/02/2023 Within the past 12 months,th e food you bought just didn't last and you didn't have enough money to get more: Never True Transportation Answer Date Recorded In the past 12 months, has l ack of transportation kept you from medical appts, meetings, work or from getting things needed for daily living? No 09/25/2023 Utilities Answer Date Recorded In the past 12 months, has t he electric, gas, oil or water company threatened to shut off services in your home? Yes 09/25/2023 Depression Answer Date Recorded Patient Health Questionnaire-2 Score 6 01/19/2023 Comments No Sex and Gender Information Value Date Recorded Sex Assigned at Female 07/03/2022 10:22 AM EDT Legal Sex Female 10:22 AM EDT Gender Identity Female 07/03/2022 10:22 AM EDT Sexual Orientation Straight 07/03/2022 10 :22 AM EDT documented as of this encounter Plan of Treatment Not on file documented as of this encounter Visit Diagnoses Diagnosis Acute pain of right knee documented in this encounter Additional Health Concerns Assessment Noted Time PHQ-9 Depression Total Score: 17 023 9:53 AM EDT documented as of this encounter Care Teams Route Agent Relationship Specialty Start Date End Date Lawanda Styles MD [address] [place] [phone] PCP - General Family Medicine 06/02/22 documented as of this encounter
--- OUTSIDE RECORDS SUMMARY | 2024-12-19 12:10 | XMS_ITS | Clinical Summary ---
Author Organization [employer] Address [address] [place] [address] Care Team Providers Care Log Grader Name Role Phone Lawanda Styles MD Primary Care Provider [phone] Allergies No known active allergies Medications levothyroxine (Synthroid, Levoxyl) 150 MCG tablet Take 150 mcg by mouth in the morning. 10/05/19 23 Active albuterol 108 (90 Base) MCG/ACT inhaler Inhale 2 puffs every 4 (four) hours if needed for wheezing or shortness of breath. 18 g 08/10/20 23 Active naproxen (Naprosyn) 500 MG tabletIndicati ons:Acute pain of right knee TAKE 1 TABLET BY MOUTH TWICE DAILY NEEDED FOR MILD PAIN 60 tablet 3 10/05/19 24 Active busPIRone (Buspar) 10 MG tablet Take 1 tablet (10 mg) by mouth 2 times daily. 180 tablet 3 12/20/19 25 Active FLUoxetine (PROzac) 20 MG capsule Take 1 capsule (20 mg) by mouth Once per day. 90 capsule 3 12/20/19 25 Active Diclofenac Sodium 1 % gelIndications :Acute pain of right knee Apply 1 Application topically Once per day. 100 g 3 12/20/19 25 Active clotrimazole (Lotrimin) 1 % cream Apply 1 g topically every 12 (twelve) hours. 03/17/20 22 025 Discontinued(T herapy completed) traZODone (Desyrel) 50 MG tablet Take 1 tablet by mouth at bedtime. 025 Discontinued(T herapy completed) LORazepam (Ativan) 0.5 MG tablet Take 1 tablet by mouth every 12 (twelve) hours. 025 Discontinued(T herapy completed) busPIRone (Buspar) 10 MG tablet TAKE 1 TABLET BY MOUTH TWICE DAILY FOR ANXIETY 07/11/20 025 Discontinued(R eorder (will not trigger notification to Pharmacy)) FLUoxetine (PROzac) 20 MG capsule TAKE 1 CAPSULE BY MOUTH ONCE DAILY 07/11/20 025 Discontinued(R eorder (will not trigger notification to Pharmacy)) baclofen (Lioresal) 10 MG tabletIndicati ons:Acute pain of right knee Take 1 tablet (10 mg) by mouth if needed in the morning, at noon, and at bedtime for muscle spasms. 60 tablet 1 11/17/19 025 Discontinued(T herapy completed) Diclofenac Sodium 1 % gelIndications :Acute pain of right knee APPLY 2 GRAMS TOPICALLY TWICE DAILY IN THE MORNING AND AT BEDTIME NEEDED FOR PAIN 100 g 3 02/03/20 025 Discontinued(R eorder (will not trigger notification to Pharmacy)) azithromycin (Zithromax) 250 MG tabletIndicati ons:Pharyngiti s, unspecified etiology Take 2 tabs PO daily x 1d then 1 tab PO daily on D2 to D5 6 tablet 08/06/20 025 Discontinued(T herapy completed) loratadine (Claritin) 10 MG tablet Take 1 tablet (10 mg) by mouth if needed each day for allergies. 30 tablet 08/10/20 025 Discontinued(T herapy completed) fluticasone (Flonase Allergy Relief) 50 MCG/ACT nasal spray Administer 1 spray into each nostril if needed each day for rhinitis. Shake gently. Before first use, prime pump. After use, clean tip and replace cap. 16 g 08/10/20 025 Discontinued(T herapy completed) pseudoephedrin e ER (Sudafed 12 Hour) 120 MG 12 hr tablet Take 1 tablet (120 mg) by mouth every 12 (twelve) hours if needed for congestion. Do not crush, chew, or split. 12 tablet 12/08/20 23 04/18/2 025 Discontinued(T herapy completed) Nirmatrelvir&R itonavir 150/100 (Paxlovid, 150/100,) 10 x 150 MG & 10 x 100MG tablet therapy pack Take 1 Dose by mouth 2 times daily. 1 each 08/10/20 23 025 Discontinued(T herapy completed) Active Problems Problem Noted Date Diagnosed Date Diarrhea 12/10/2023 Assessment & Plan (12/10/2023 4:10 PM EDT): -symptom appears to be resolving -patient advised to allow time for complete solution -bland diet advised. Patient handout on diverticulosis provided -stool culture ordered to rule out c-diff infection given her recent antibiotic use -will send prescription for immodium pending negative c-diff results -advised to seek immediate medical attention with worsening symptoms -GI referral placed per patient request -follow-up with pcp as needed Left knee pain 12/10/2023 Assessment & Plan (12/10/2023 4:11 PM EDT): -patient report consistent pain following an extensive work-up. Would like referral to ortho -referral placed Encounter for colorectal cancer screening 2023 Assessment & Plan (10/05/2023 2:49 PM EST): Colonoscopy to be done at age 39 due to Fam Hx. Refer to GI Encounter for preventive health examination 10/2023 Assessment & Plan (10/05/2023 10:24 AM EST): Discussed with patient re increase fresh fruit and vegetable intake. Counseled re moderate exercise as tolerated, up to 20min/d Patient feels safe at home. PAP smear up to date, next one due on 2026 Mammogram, overdue, pt has info to reschedule her missed junior Eye exam up to date, has upcoming appointment at [place] [facility] screen to be referred, pt is a high risk Lipids/FBS to be ordered Vaccinations counseled regarding Covid and flu IZ, she wants to have it done at covid vax clinic. Order IZ titers and TB test, Td and Hep B are up to date Dental visit over due, gave info of dental clinics in the area Old tear of meniscus of left knee 01/22/2023 Assessment & Plan (01/22/2023 5:43 AM EDT): S/p repair Episode of recurrent major depressive disorder 0 01/22/2023 Assessment & Plan (01/22/2023 5:45 AM EDT): Cont Prozac, Atican, Trazodone per psych Hyperlipidemia 05/13/2015 History of thyroidectomy 03/24/2015 Assessment & Plan (10/05/2023 2:48 PM EST): She is on levoxyl followed by endo, has appointment already scheduled Order lab and fu w endo Postoperative hypothyroidism 03/24/2015 Assessment & Plan (01/22/2023 5:44 AM EDT): Currently on 150mcg Sees endocrine, Dr Valencia, who will take over her Synthroid dosing and followup Taking med daily Assessment & Plan (10/06/2022 6:43 AM EST): Currently on 300mcg This may be too high due to non-compliance leading to higher TSH in the past Saw endocrine this morning, who will take over her Synthroid dosing and followup Assessment & Plan (08/25/2022 3:08 PM EST): Increase Synthroid to 300mcg daily Recheck in 6-8 weeks Obstructive sleep apnea syndrome 12/08/2014 Assessment & Plan (10/05/2023 2:48 PM EST): Pt reportedly not using CPAP, she was recommended to do behavioral changes. FU w PCP Degeneration of lumbar intervertebral disc 01/21 Iron deficiency anemia 09/13/2012 PCOS (polycystic ovarian syndrome) 09/13/2012 Obesity 06/18/2012 Encounters Date Type Department Care Team Description 12/19/2024 10:30 AM EDT Office Visit [facility] [address] [place] [phone] Lawanda Styles MD Postoperative hypothyroidism (Primary Dx); Dietary counseling; Exercise counseling; Class 1 obesity without serious comorbidity with body mass index (BMI) of 33.0 to 33.9 in adult, unspecified obesity type; Acute pain of right knee; Routine screening for STI (sexually transmitted infection) 12/19/2024 Travel 12/18/2024 Telephone [facility] [address] [place] [phone] Lawanda Styles MD chart prep 12/15/2024 Patient Outreach [address] [address] Conner Garcia Care Coordination (CHW outreach for SDOH utilities and food needs-referral completed /) 12/11/2024 Patient Outreach [address] [phone] Lawanda Styles MD Pre-visit Planning (SDOH screening positive and Tobacco screening positive) 11/14/2024 Population Health Risk Score [facility] () [address] [phone] Provider, Population Health Generic 10/09/[address] [address] Kartik Leisenring, [place] recall from Last 3 Months Immunizations Name Administration Dates Next Due Influenza, Split (incl. ayaan fied surface antigen) 06/04/2012 Moderna Covid-19 Vaccine 12+ 11/10/2021,02/04/20 21,01/05/2021 Moderna Covid-19 Vaccine 6+ Bivalent 08/10/2022 Pneumococcal Polysaccharide PPSV23 03/24/2015 Tdap 07/04/2022,2012 Family History Medical History Relation Name Comments Colon cancer Cousin Colon cancer Mother Ovarian cancer Mother from Par kinson's and Dementia Relation Name Status Comments Cousin Mother Social History Tobacco Use Types Packs/Day Years Used Date Smoking Tobacco: Every Day Cigarettes 0.5 30 Passive Smoke Exposure: Current Smokeless Tobacco: Never Tobacco Cessation:Ready to Q uit: Not Asked; Counseling Given: Not Answered Alcohol Use Standard Drinks/Week Comments Not Currently [...] Orientation Straight 07/03/2022 10 :22 AM EDT Last Filed Vital Signs Vital Sign Reading Time Taken Comments Blood Pressure 120/76 12/19/2024 10:22 AM EDT Pulse 87 12/19/2024 10:22 AM EDT Temperature 36.4 ??C (97.6 ??F) 12/10/2023 1:38 PM ED T Respiratory Rate 20 12/19/2024 10:22 AM EDT Oxygen Saturation 99% 12/19/2024 10:22 AM EDT Inhaled Oxygen Concentration - - Weight 106 kg (234 lb 3.2 oz) 12/19/2024 10:22 A M EDT Height 179.1 cm (5' 10.5 ) 12/19/2024 10:22 AM E DT Body Mass Index 33.13 12/19/2024 10:22 AM EDT Plan of Treatment Health Maintenance Due Date Last Done Comments CT Colonography 1978 Colonoscopy 1978 Colorectal Cancer Screening 1978 FIT DNA/Cologuard 1978 FIT 1978 FOBT 1978 Sigmoidoscopy 1978 Alcohol/Substance Use Screening 1990 Family Planning (PISQ) 1993 Hepatitis B Vaccines (1 of 3 - 19+ 3-dose series) 1997 Pneumococcal Vaccine: Pediatrics (0 to 5 Years) and At-Risk Patients (6 to 49) Years) (2 of 2 - PCV) 03/24/2016 03/24/2015 COVID-19 Vaccine ( season) 2024 08/10/2022, 11/10/2021, 02/03/2021, Additional history exists Influenza Vaccine (#1) 2024 06/04/2012 Pap Smear 08/21/2025 08/21/2022, 08/21/2022 SDOH Screening 12/11/2025 12/11/2024 Depression Screening 12/19/2025 12/19/2024, 12/20/19 25 Tobacco Screening 12/19/2025 12/19/2024 Mammogram 12/27/2025 12/28/2023, 09/09/2022 Cervical Cancer Screening 08/21/2027 HPV/Cotest 08/21/2027 08/21/2022 Lipid Panel 10/05/2028 10/05/2023 Zoster Vaccines (1 of 2) 2028 DTaP/Tdap/Td Vaccines (3 - Td or Tdap) 07/04/2032 07/04/2022, 2012 RSV Patients and Patients Aged 60 years or older (1 - 1-dose 75+ series) 2053 HIV Screening Completed 10/05/2023, 08/21/2022 Hepatitis C Screening Completed 10/05/2023, 022 HIB Vaccines Aged Out No longer eligi [...] patient's age to complete this topic Meningococcal Vaccine Aged Out No georgia alli eligible based on patient's age to complete this topic RSV under 20 months Aged Out No longe r eligible based on patient's age to complete this topic Rotavirus Vaccines Aged Out No longer eligible based on patient's age to complete this topic Procedures Procedure Name Priority Date/Time Associated Diagnosis Comments BI MAMMOGRAM SCREENING TOMOSYNTHESIS BILATERAL Routine 12/28/2023 10:58 AM EDT HEPATITIS PANEL, GENERAL Routine 10/05/2023 10:46 AM EST Encounter for preventive health examination HIV 1/2 ANTIGEN/ANTIBODY, FOURTH GENERATION W/RFL Routine 10/05/2023 10:46 AM EST Encounter for preventive health examination LIPID PANEL WITH REFLEX TO DIRECT LDL Routine 10/05/2023 10:46 AM EST Encounter for preventive health examination IMAGE-GUIDED PAP W/AGE BASED SCR,W/CT/NG/TRICH Routine 08/21/2022 11:00 AM EST Cervical cancer screening PAP SMEAR Routine 08/21/2022 12:00 AM EST from Last 3 Months or Most Recently Relevant to Health Maintenance Results * BI Mammogram Screening Tomosynthesis Bilateral (12/28/2023 10:58 AM EDT) Anatomical Region Laterality Modality Breast Bilateral Mammography 12/28/2023 10:5 8 AM EDT Narrative 01/27/2024 5:59 AM EDT ? [facility] ? [address] ?[place] [address] ? Mammography Report ? Signed ? Patient: Joni Packer,Izabela ?MR#: [id number] ?? [id number] ? : 1980 ?Acct:[id number] ? Age/Sex: 43 / F ?ADM Date: 04/26/24 ? Loc: HO.MAMMO ? Attending Dr: Lawanda Styles MD ? Ordering Physician: Lawanda Styles ?Results: 1Negative ? Date of Service: 12/28/23 ?Follow Up: 1 Year From Orig ?? inal Mammogram ? Procedure(s): MM tomosynthesis screening BI ?? Accession Number(s): [id number] ? cc: Lawanda Styles ? EXAMINATION: ?? MM SCREENING DIGITAL BREAST TOMOSYNTHESIS, BILATERAL ? CLINICAL INFORMATION: ? Screening. Asymptomatic. ? COMPARISON: ?? Mammography: This study is compared with prior exams dating back to ?? 2022. ? TECHNIQUE: ?? Digital breast tomosynthesis is performed in both the craniocaudal and ?? mediolateral oblique views along with computer-aided detection (CAD). ?? Synthesized 2D images are generated from the tomosynthesis. ? FINDINGS: ?? There are scattered areas of fibroglandular density (ACR BI-RADS breast ?? composition Category b). ? There are no significant masses, abnormal calcifications, or other ?? abnormalities. ? MM/MM tomosynthesis screening BI ?? IMPRESSION: ?? No mammographic evidence of malignancy. ? ASSESSMENT: ? BI-RADS BI-RADS 1 - Negative ? RECOMMENDATION: ?? Routine annual mammography screening. ? 1 year F/U ? This examination should not preclude the clinical evaluation of a ?? suspicious palpable abnormality. ? This patient's information was entered into a reminder system with a ?? target due date for their next mammogram. ? Dictated By: ?Alisa Simmons MD ? Signed By: ?<Electronically signed by Alisa Simmons MD in OV> ? 01/27/24 0555 ? DD/ ? TD/TT: ? Mohel: ? Procedure Note Donotjimter, Image - 01/27/2024 [facility] [address] [place] [address] Mammography Report Signed Patient: Izabela JacobsenMR#: [id number] : 1980Acct:[id number] Age/Sex: 43 / FADM Date: 12/28/23 Loc: HO.MAMMO Attending Dr: Lawanda Styles MD Ordering Physician: Dinora Stylesults: 1Negative Date of Service: 12/28/23Follow Up: 1 Year From Orig inal Mammogram Procedure(s): MM tomosynthesis screening BI Accession Number(s): [id number] cc: Lawanda Styles EXAMINATION: MM SCREENING DIGITAL BREAST TOMOSYNTHESIS, BILATERAL CLINICAL INFORMATION: Screening. Asymptomatic. COMPARISON: Mammography: This study is compared with prior exams dating back to 2022. TECHNIQUE: Digital breast tomosynthesis is performed in both the craniocaudal and mediolateral oblique views along with computer-aided detection (CAD). Synthesized 2D images are generated from the tomosynthesis. FINDINGS: There are scattered areas of fibroglandular density (ACR BI-RADS breast composition Category b). There are no significant masses, abnormal calcifications, or other abnormalities. MM/MM tomosynthesis screening BI IMPRESSION: No mammographic evidence of malignancy. ASSESSMENT: BI-RADS BI-RADS 1 - Negative RECOMMENDATION: Routine annual mammography screening. 1 year F/U This examination should not preclude the clinical evaluation of a suspicious palpable abnormality. This patient's information was entered into a reminder system with a target due date for their next mammogram. Dictated By: Alisa Simmons MD Signed By: <Electronically signed by Alisa Simmons MD in OV> 01/27/24 0555 DD/ 1058 TD/TT: Mohel: us Lawanda Styles MD IMG BI PROCEDURES Final Result * (ABNORMAL) Lipid Panel with Reflex to Direct LDL (10/05/2023 10:46 AM EST) Triglycerides 84 <150 mg/dL [facility] Comment:Desirable Triglyceri de: less than 150 mg/dLBorderline High Triglyceride 150-199 mg/dLHigh Triglyceride: 200-499 mg/dLVery High Triglyceride: greater than or equal to 5OO mg/dL Cholesterol 177 <200 mg/dL [facility] Comment:Desirable Cholestero l: less than 200 mg/dLBorderline High Cholesterol: 200-239 mg/dLHigh Cholesterol: greater than 239 mg/dL LDL Cholesterol Calculated 116(H) <100 mg/dL [facility] Comment:Desirable LDL: less than 100 mg/dLNear Optimal/Above Optimal LDL: 110- 129 mg/dLBorderline High LDL: 130-159 mg/dLHigh LDL: 160-189 mg/dLVery High LDL: greater than or equal to 190 mg/dL HDL Cholesterol 45 >40 mg/dL [facility] Comment:Desirable HDL: great er than 40 mg/dL Note: This HDL assay may give artificially low results in patients with liver disease. Blood 10/05/2023 10:4 6 AM EST 10/05/2023 11:38 AM EST us Midny Aguirre MD LAB BLOOD ORDERABLES Fin al Result [facility] [address] [place] [phone] * Hepatitis Panel, General (10/05/2023 10:46 AM EST) Hepatitis A IgM Nonreactive Nonreactive [facility] Comment:IgM antibodies to OLIVEIRA V not detected; does not exclude earlyacute or recovered HAV infection. ~Hepatitis B Surface Antibody REACTIVE Nonreactive [facility] Comment:REACTIVE: > 11.99 mI U/mL Hepatitis B Core Antibody Nonreactive Nonreactive [facility] Hepatitis C Antibody Nonreactive Nonreactive [facility] Comment:Antibodies to HCV no t detected; does not exclude early acuteHCV infection. Hepatitis B Surface Ag Negative Negative [facility] Blood 10/05/2023 10:4 6 AM EST 10/05/2023 11:38 AM EST Mindy Aguirre MD LAB BLOOD ORDERABLES Fin al Result Performing Organization Address City/[facility]/ZIP Co de Phone Number [facility] [address] [place] [phone] * HIV-1/2 Antigen and Antibodies, Fourth Generation, with Reflexes (10/05/2023 10:46 AM EST) HIV AB/AG Nonreactive Nonreactive [facility] Comment:HIV-1 p24 Ag and/or HIV-1/HIV-2 Ab not detected.A test result that is nonreactive does not exclude thepossibility of exposure to or infection with HIV-1 and/orHIV-2. Nonreactive results in this assay for individualswith prior exposure to HIV-1 and/or HIV-2 may be due toantigen and antibody levels that are below the limit ofdetection of this assay.The [employer] Monitoring HIV Ag/Ab Combo assay result andsupplemental assay results should be interpreted inconjunction with the patient's clinical presentation,history and other laboratory results. If the results areinconsistent with clinical evidence, additional testing issuggested to confirm the result. Blood Venous blood specimen / Unknown 10/05/2023 10:46 AM EST 10/05/2023 11:38 AM EST Mindy Aguirre MD LAB BLOOD ORDERABLES Fin al Result Performing Organization Address [facility]/ZIP Co de Phone Number [facility] [address] [place] [address] [phone] * Image-Guided Pap with Age-Based Screening??with CT/NG,??Trichomonas (08/21/2022 11:00 AM EST) Comment [facility] Comment: This order for age-based cervical cancer and STI screening follows ACOG guidelines(PB 168, 140, KVX541). See individual assays for performing site location. Clinical Information: None given [facility] LMP: NONE GIVEN [facility] Prev. PAP: NONE GIVEN [facility] Prev. BX: NONE GIVEN [facility] SOURCE: None given [facility] Statement Of Adequacy: [facility] Comment: Satisfactory for evaluation. Endocervical/transformation zone component present. Age and/or menstrual status not provided Interpretation/Re sult: Negative for intraepithelial lesion or malignancy. [facility] Infection Shift in vaginal wilfrid suggestive of bacterial vaginosis. [facility] COMMENT: This Pap test has been evaluated with computer assisted technology. [facility] Customer Services Manager: Barbara Copyright Agent Comment: CMG, CT(ASCP) CT screening location: [address] ??[address] (Always Message) [facility] Comment: EXPLANATORY NOTE: The Pap is a screening test for cervical cancer. It is not a diagnostic test and is subject to false negative and false positive results. It is most reliable when a satisfactory sample, regularly obtained, is submitted with relevant clinical findings and history, and when the Pap result is evaluated along with historic and current clinical information. HPV nRNA E6/E7 Not Detected Not Detected [facility] Comment: Methodology: Director Of Materials-Mediated Amplification This assay detects E6/E7 viral messenger RNA (mRNA) from 14 high-risk HPV types (16,18,31,33,35,39,45,51,52,56,58,59,66,68). Cervical sources are required for HPV testing. If a vaginal source from a patient who has had a total hysterectomy with removal of cervix was submitted, please contact the testing laboratory for alternative testing options. For additional information, please refer to http://education.[employer]/faq/MSK160x6 (This link if provided for information/ educational purposes only.) Chlamydia trachomatis RNA, TMA, Urogenital NOT DETECTED NOT DETECTED [facility] Neisseria gonorrhoeae RNA, TMA, Urogenital NOT DETECTED NOT DETECTED [employer] (Always Message) [facility] [employer] Comment: The analytical performance characteristics of this assay, when used to test SurePath(TM) specimens have been determined by [employer]. The modifications have not been cleared or approved by the FDA. This assay has been validated pursuant to the CLIA regulations and is used for clinical purposes. For additional information, please refer to https://[employer]/faq/IKC489 (This link is being provided for information/ educational purposes only.) Trichomonas vaginalis, QL, TMA, PAP Vial NOT DETECTED NOT DETECTED [facility] Comment: The analytical performance characteristics of this assay have been determined by [employer]. The modifications have not been cleared or approved by the FDA. This assay has been validated pursuant to the CLIA regulations and is used for clinical purposes. For additional information, please refer to http://[employer]/ faq/Trichomonastma (This link is being provided for information/ educational purposes only.) 08/21/2022 11:0 0 AM EST 08/22/2022 8:31 AM EST Tracie Vela [facility] CYTOLOGY ORDERABLES F inal Result Performing Organization Address City/[facility]/ZIP Co de Phone Number [facility] [address], [place] [phone] [employer] [place] [employer] [address] [facility], ([address]) [place] [phone] * Pap Smear (08/21/2022 12:00 AM EST) Swab Tracie Vela [facility] CYTOLOGY ORDERABLES F inal Result Performing Organization Address [facility]/ZIP Co de Phone Number [facility] [address], [place] [phone] from Last 3 Months or Most Recently Relevant to Health Maintenance Insurance [facility] C3 Care Teams Log Grader Relationship Specialty Start Date End Date Lawanda Styles MD [address] [place] [phone] PCP - General Family Medicine 06/02/22
--- OUTSIDE RECORDS SUMMARY | 2024-12-19 12:10 | XMS_ITS | Encounter Summary ---
Author Organization [employer] Address [address] [place] [address] 7t [place] [address] Care Team Providers Care Customer Order Clerk Name Role Phone Lawanda Stlyes MD Primary Care Provider [phone] Encounter Details Date Type Department Care Team ([facility] st Contact Info) Description 08/24/2022 Orders Only [facility] [address] [place] [address] Mihir Tinsley, PharmD ERRONEOUS ENCOUNTER--DISREGARD (Primary Dx) Social History Tobacco Use Types Packs/Day Years [...] Procedure Name Priority Date/Time Associated Diagnosis Comments TSH Routine 10/04/2022 10:40 AM EST ERRONEOUS ENCOUNTER--DISREGARD T4, FREE Routine 10/04/2022 10:40 AM EST ERRONEOUS ENCOUNTER--DISREGARD documented in this encounter Results * (ABNORMAL) TSH (10/04/2022 10:40 AM EST) Thyroid Stimulating Hormone 0.04(L) 0.32 - 4.0 uIU/mL [facility] Comment:TSH 3rd Generation ( [facility]) 10/04/2022 10:4 0 AM EST 10/04/2022 1:52 PM EST [facility] External Provider LAB BLO OD ORDERABLES Final Result Performing Organization Address City/[facility] Co de Phone Number [facility] [address] [place] [address] [phone] * T4, Free (10/04/2022 10:40 AM EST) Free T4 (Free Thyroxine) 1.71 0.71 - 1.85 ng/dL [facility] 10/04/2022 10:4 0 AM EST 10/04/2022 1:52 PM EST [facility] External Provider LAB BLO OD ORDERABLES Final Result Performing Organization Address [facility] de Phone Number [facility] [address] [place] [phone] documented in this encounter Visit Diagnoses Diagnosis ERRONEOUS ENCOUNTER--DISREGARD- Primary documented in this encounter Care Teams Customer Order Clerk Relationship Specialty Start Date End Date Lawanda Styles MD [address] [place] [phone] PCP - General Family Medicine 06/02/22 documented as of this encounter
[2024-12-19 13:40] LABS: Estimated Average Glucose 108 mg/dL; Hemoglobin A1C 112.6103 umol/L; Hemoglobin A1c % 5.4 % (<6.0); Total Hemoglobin (HGBA1C) 3185.7416 umol/L
[2024-12-19 13:57] LABS: Alanine Aminotransferase 19 U/L (0-31); Anion Gap 10 (12-20); Aspartate Amino Transferase 25 U/L (5-31); Bilirubin Total 0.3 mg/dL (0.0-1.0); Blood Urea Nitrogen 8 mg/dL (9-16); Calcium 8.9 mg/dL (8.4-10.2); Carbon Dioxide 24 mmol/L (22-29); Chloride 109 mmol/L (96-108); Cholesterol 203 mg/dL (<200); Estimated Glomerular Filt Rate > 60; Glucose Random 91 mg/dL (60-115); HDL Cholesterol 53 mg/dL (>40); LDL Cholesterol Calculated 130 mg/dL (<100); Sodium 139 mmol/L (135-145); Total Protein 7.2 g/dL (6.5-8.0); Triglycerides 101 mg/dL (<150)
[2024-12-19 14:19] LABS: TSH reflex Free T4 1.66 uIU/mL (0.32-4.0)
[2024-12-19 19:47] LABS: Alkaline Phosphatase 76 U/L (39-117)
[2024-12-20 02:38] LABS: CT PCR NOT DETECTED (Not Detect.); NG PCR NOT DETECTED (Not Detect.)
[2024-12-20 08:18] LABS: HIV AB/AG Nonreactive (Nonreactive); HIV Num 1 0.06 S/CO (0.00-0.99); ~Hepatitis C Antibody Nonreactive (Nonreactive)
[2024-12-21 18:48] LABS: RPR Rapid Plasma Reagin NON-REACTIVE (NON-REACTIVE)
== END 2024-12-19 11:04 | disposition home or self-care (01) ==
LOC: HO.HHCL 11:03
PROVIDERS: Visit Provider General Practice
DX: E89.0 Postprocedural hypothyroidism (principal); Z11.3 Encounter for screening for infections with a predominantly sexual mode of transmission; E66.811 Obesity, class 1; Z68.33 Body mass index [BMI] 33.0-33.9, adult
CPT/HCPCS: 80053; 80061; 83036; 84443; 86592; 86803; 87389; 87491; 87591

== ENCOUNTER 2025-01-02 10:12 | Outpatient (REF) | payer MEDICAID, SELFPAY ==
--- OUTSIDE RECORDS SUMMARY | 2025-01-02 11:12 | XMS_ITS | Encounter Summary ---
Author Organization [employer] Address [address] [facility] 7t [place] [address] Care Team Providers Care Licensed Practical Nurse Instructor Name Role Phone Lawanda Styles MD Primary Care Provider [phone] Reason for Visit * Reason Comments Med Refill Encounter Details Date Type Department Care Team ([facility] st Contact Info) Description 09/24/2023 Refill [facility] [address] [place] [address] [phone] Lawanda Styles MD [address] [place], [place] [phone] Acute pain of right knee Social History [...] documented as of this encounter Care Teams Licensed Practical Nurse Instructor Relationship Specialty Start Date End Date Lawanda Styles MD [address] [place] [phone] PCP - General Family Medicine 06/02/22 documented as of this encounter
--- OUTSIDE RECORDS SUMMARY | 2025-01-02 11:12 | XMS_ITS | Clinical Summary ---
Author Organization [employer] Address [address] [facility] 7t [place] [address] Care Team Providers Care Health Service Coordinator Name Role Phone Lawanda Styles MD Primary Care Provider [phone] Allergies No known active allergies Medications levothyroxine (Synthroid, Levoxyl) 150 MCG tablet Take 150 mcg by mouth in the morning. 10/05/19 23 Active naproxen (Naprosyn) 500 MG tabletIndicati [...] not crush, chew, or split. 12 tablet 08/10/20 025 Discontinued(T herapy completed) albuterol 108 (90 Base) MCG/ACT inhaler Inhale 2 puffs every 4 (four) hours if needed for wheezing or shortness of breath. 18 g 08/10/2021/2 025 Discontinued(T herapy completed) Nirmatrelvir&R itonavir 150/100 (Paxlovid, 150/100,) 10 x 150 MG & 10 x 100MG tablet therapy pack Take 1 Dose by mouth 2 times daily. 1 each 08/10/20 23 025 Discontinued(T herapy completed) Active Problems Problem Noted Date Diagnosed Date Left knee pain 12/10/2023 Assessment & Plan [...] up to date, has upcoming appointment at [place] [facility] screen to be referred, pt is [...] PCOS (polycystic ovarian syndrome) 09/13/2012 Obesity 06/18/2012 Resolved Problems Problem Noted Date Diagnosed Date Resolved Date Diarrhea 12/10/2023 12/22/2024 Assessment & Plan (12/10/2023 4:10 PM EDT): [...] patient request -follow-up with pcp as needed Encounters Date Type Department Care Team Description 12/19/2024 10:30 AM EDT Office Visit [address] [phone] Lawanda Styles MD Postoperative hypothyroidism (Primary Dx); Dietary counseling; Exercise counseling; Class 1 obesity without serious comorbidity with body mass index (BMI) of 33.0 to 33.9 in adult, unspecified obesity type; Acute pain of right knee; Routine screening for STI (sexually transmitted infection); Screening for colon cancer; Old tear of meniscus of left knee, unspecified meniscus, unspecified tear type; History of thyroidectomy 12/19/2024 Travel 12/18/2024 Telephone [facility] [address] [place] [address] [phone] Lawanda Styles MD chart prep 12/15/2024 Patient Outreach [address] [phone] Conner Garcia Care Coordination (CHW outreach for SDOH utilities and food needs-referral completed /) 12/11/2024 Patient Outreach [address] [phone] Lawanda Styles MD Pre-visit Planning (SDOH screening positive and Tobacco screening positive) 11/14/2024 Population Health Risk Score [facility] () Department [address] [place] [phone] Provider, Population Health Generic 10/09/[address] [address] Rehana Verdugo [place] recall from Last 3 Months Immunizations [...] t he electric, gas, oil or water [employer] threatened to shut off services in your [...] Done Comments CT Colonography 1978 Colonoscopy 1978 FIT DNA/Cologuard 1978 FIT 1978 FOBT 1978 Sigmoidoscopy 1978 Alcohol/Substance Use Screening 1990 Hepatitis B Vaccines (1 of 3 - [...] 12/19/2024, 12/20/19 25 Tobacco Screening 12/19/2025 12/19/2024 Colorectal Cancer Screening 12/22/2025 Postponed from 1978 (Other System Reasons) Family Planning (PISQ) 12/22/2025 12/22/2024 Mammogram 12/27/2025 12/28/2023, 09/09/2022 Cervical Cancer Screening 08/21/2027 HPV/Cotest 08/21/2027 08/21/2022 Zoster Vaccines (1 of 2) 2028 Lipid Panel 12/19/2029 12/19/2024, 10/05/2023 DTaP/Tdap/Td Vaccines (3 - Td or Tdap) 07/04/2032 07/04/2022, 2012 RSV Patients and Patients Aged 60 years or older (1 - 1-dose 75+ series) 2053 HIV Screening Completed 12/19/2024, 10/2023, 08/21/2022 Hepatitis C Screening Completed 12/19/2024 , 10/05/2023, 08/21/2022 HIB Vaccines Aged Out No longer eligi [...] Procedure Name Priority Date/Time Associated Diagnosis Comments HEPATITIS C AB W/REFL TO HCV RNA, QN, PCR Routine 12/19/2024 11:16 AM EDT Routine screening for STI (sexually transmitted infection) HIV 1/2 ANTIGEN/ANTIBODY, FOURTH GENERATION W/RFL Routine 12/19/2024 11:16 AM EDT Routine screening for STI (sexually transmitted infection) RPR (MONITOR) W/REFL TITER Routine 12/19/2024 11:06 AM EDT Routine screening for STI (sexually transmitted infection) HEMOGLOBIN A1C Routine 12/19/2024 11:06 AM EDT Class 1 obesity without serious comorbidity with body mass index (BMI) of 33.0 to 33.9 in adult, unspecified obesity type LIPID PANEL, STANDARD Routine 12/19/2024 11:06 AM EDT Class 1 obesity without serious comorbidity with body mass index (BMI) of 33.0 to 33.9 in adult, unspecified obesity type COMPREHENSIVE METABOLIC PANEL Routine 12/19/2024 11:06 AM EDT Class 1 obesity without serious comorbidity with body mass index (BMI) of 33.0 to 33.9 in adult, unspecified obesity type TSH W/REFLEX TO FT4 Routine 12/19/2024 1 1:06 AM EDT Postoperative hypothyroidism CHLAMYDIA/N. GONORRHOEAE RNA, TMA, UROGENITAL Routine 12/19/2024 11:06 AM EDT Routine screening for STI (sexually transmitted infection) BI MAMMOGRAM SCREENING TOMOSYNTHESIS BILATERAL Routine 12/28/2023 10:58 AM EDT IMAGE-GUIDED PAP W/AGE BASED SCR,W/CT/NG/TRICH Routine 08/21/2022 11:00 AM EST Cervical cancer screening PAP SMEAR Routine 08/21/2022 12:00 AM EST from Last 3 Months or Most Recently Relevant to Health Maintenance Results * Hepatitis C Antibody with Reflex to HCV, RNA, Quantitative, Real-Time PCR (12/19/2024 11:16 AM EDT) Hepatitis C Antibody Nonreactive Nonreactive [facility] Comment:Antibodies to HCV no t detected; does not exclude early acuteHCV infection. Blood Venous blood specimen / Unknown 12/19/2024 11:16 AM EDT 12/19/2024 1:03 PM EDT us Lawanda Styles MD LAB BLOOD ORDERABLES Final Res ult [facility] [address] [place] [phone] * HIV-1/2 Antigen and Antibodies, Fourth Generation, with Reflexes (12/19/2024 11:16 AM EDT) HIV AB/AG Nonreactive Nonreactive [facility] Comment:HIV-1 p24 Ag and/or HIV-1/HIV-2 Ab not detected.A test result that is nonreactive does not exclude thepossibility of exposure to or infection with HIV-1 and/orHIV-2. Nonreactive results in this assay for individualswith prior exposure to HIV-1 and/or HIV-2 may be due toantigen and antibody levels that are below the limit ofdetection of this assay.The [employer] HIV Ag/Ab Combo assay result andsupplemental assay results should be interpreted inconjunction with the patient's clinical presentation,history and other laboratory results. If the results areinconsistent with clinical evidence, additional testing issuggested to confirm the result. Blood Venous blood specimen / Unknown 12/19/2024 11:16 AM EDT 12/19/2024 1:03 PM EDT Lawanda Styles MD LAB BLOOD ORDERABLES Final Res ult Performing Organization Address [facility] Co de Phone Number [facility] [address] [place] [phone] * TSH W/Reflex to FT4 (12/19/2024 11:06 AM EDT) TSH reflex Free T4 1.66 0.32 - 4.0 uIU/mL [facility] Blood Venous blood specimen / Unknown 12/19/2024 11:06 AM EDT 12/19/2024 1:03 PM EDT Lawanda Styles MD LAB BLOOD ORDERABLES Final Res ult Performing Organization Address [facility] de Phone Number [facility] [address] [place] [phone] * Chlamydia/N. Gonorrhoeae RNA, TMA, Urogenitial (12/19/2024 11:06 AM EDT) CT PCR NOT DETECTED Not Detect. [facility] Comment:A not detected test result does not exclude the possibilityof infection because test results can be affected byimproper specimen collection, concurrent antibiotic therapy,or the number of organisms in the specimen which may bebelow the sensitivity of the test. As with many diagnostictests, results from the Xpert CT/NG assay should beinterpreted in conjunction with other laboratory andclinical data available to the clinician.Xpert CT/NG performance has not been evaluated in patientsless than 14 years of age. The assay should not be used forthe evaluationof suspected sexual abuse or for other medico-legalindications. Additional testing is recommended in anycircumstance when false positive or false negative resultscould lead to adverse medical, social or psychologicalconsequences. NG PCR NOT DETECTED Not Detect. [facility] Comment:A not detected test result does not exclude the possibilityof infection because test results can be affected byimproper specimen collection, concurrent antibiotic therapy,or the number of organisms in the specimen which may bebelow the sensitivity of the test. As with many diagnostictests, results from the Xpert CT/NG assay should beinterpreted in conjunction with other laboratory andclinical data available to the clinician.Xpert CT/NG performance has not been evaluated in patientsless than 14 years of age. The assay should not be used forthe evaluationof suspected sexual abuse or for other medico-legalindications. Additional testing is recommended in anycircumstance when false positive or false negative resultscould lead to adverse medical, social or psychologicalconsequences. Urine (Urine, Random) 12/19/2024 11:06 AM EDT 12/19/2024 1:00 PM EDT Narrative [facility] - 12/20/2024 2:38 AM EDT Urine us Lawanda Styles MD LAB MICROBIOLOGY - GENERAL ORD ERABLES Final Result [facility] [address] [place] [phone] [phone] * RPR (Monitor) with Reflex to??Titer (12/19/2024 11:06 AM EDT) RPR (Monitor) w/Refl Titer NON-REACTI VE NON-REACT RUBEN [facility] Comment:THIS TEST WAS PERFOR MED AT:[facility])[address] [place] [phone] JIMENEZ MD Rapid Plasma Reagin Ab Titer TNP [facility] Blood Venous blood specimen / Unknown 12/19/2024 11:06 AM EDT 12/19/2024 1:08 PM EDT Lawanda Styles MD LAB BLOOD ORDERABLES Final Res ult Performing Organization Address [facility] Co de Phone Number [facility] [address] [place] [phone] * Hemoglobin A1c (12/19/2024 11:06 AM EDT) Hemoglobin A1c 5.4 <6.0 % [facility] Comment:Hemoglobin A1C Refer ence Range Adults: 4.8 - 6.0 % Non diabetic: < 6.0 % Goal: < 7.0 %Additional Action Suggested: > 8.0 %Note: Hemoglobin A1c results are invalid for patients with abnormal amounts of HbF. Blood transfusions may impact the HbA1c concentration in the patient sample. Estimated Average Glucose 108 mg/dL [facility] Comment:eAG = Estimated ave rage glucose which is %A1C expressed asaverage glucose, using the formula of the W5L-FenuxzkMujeqzk Glucose study (ADAG), Diabetes Care, Vol.31,#8,Apr. 2007 Blood Venous blood specimen / Unknown 12/19/2024 11:06 AM EDT 12/19/2024 1:08 PM EDT Lawanda Styles MD LAB BLOOD ORDERABLES Final Res ult Performing Organization Address [facility] Co de Phone Number [facility] [address] [place] [phone] * (ABNORMAL) Lipid Panel, Standard (12/19/2024 11:06 AM EDT) Triglycerides 101 <150 mg/dL [facility] Comment:Desirable Triglyceri de: less than 150 mg/dLBorderline High Triglyceride 150-199 mg/dLHigh Triglyceride: 200-499 mg/dLVery High Triglyceride: greater than or equal to 5OO mg/dL Cholesterol 203(H) <200 mg/dL [facility] Comment:Desirable Cholestero l: less than 200 mg/dLBorderline High Cholesterol: 200-239 mg/dLHigh Cholesterol: greater than 239 mg/dL LDL Cholesterol Calculated 130(H) <100 mg/dL [facility] Comment:Desirable LDL: less than 100 mg/dLNear Optimal/Above Optimal LDL: 110- 129 mg/dLBorderline High LDL: 130-159 mg/dLHigh LDL: 160-189 mg/dLVery High LDL: greater than or equal to 190 mg/dL HDL Cholesterol 53 >40 mg/dL [facility] Comment:Desirable HDL: great er than 40 mg/dL Note: This HDL assay may give artificially low results in patients with liver disease. Blood Venous blood specimen / Unknown 12/19/2024 11:06 AM EDT 12/19/2024 1:03 PM EDT us Lawanda Styles MD LAB BLOOD ORDERABLES Final Res ult [facility] [address] [place], [place] [phone] * (ABNORMAL) Comprehensive Metabolic Panel (12/19/2024 11:06 AM EDT) Sodium 139 135 - 145 mmol/L [facility] Potassium 4.0 3.3 - 5.1 mmol/L [facility] Chloride 109(H) 96 - 108 mmol/L [facility] Carbon Dioxide 24 22 - 29 mmol/L [facility] Anion Gap 10(L) 12 - 20 [facility] Urea Nitrogen (BUN) 8(L) 9 - 16 mg/dL [facility] Creatinine, Serum 0.74 0.5 - 1.4 mg/dL [facility] Estimated Glomerular Filt Rate >60 [facility] Comment:Chronic Kidney Disea se: Estimated GFR < 60 mL/min/1.07f2Ptznpe Kidney Disease: Estimated GFR < 15 mL/min/1.73m2 Glucose 91 60 - 115 mg/dL [facility] Calcium 8.9 8.4 - 10.2 mg/dL [facility] Bilirubin, Total 0.3 0.0 - 1.0 mg/dL [facility] Aspartate Amino Transferase 25 5 - 31 U/L [facility] Alanine Aminotransferase 19 0 - 31 U/L [facility] Total Protein 7.2 6.5 - 8.0 g/dL [facility] Albumin Level 4.0 3.5 - 5.0 g/dL [facility] Alkaline Phosphatase 76 39 - 117 U/L [facility] Blood Venous blood specimen / Unknown 12/19/2024 11:06 AM EDT 12/19/2024 1:03 PM EDT us Lawanda Styles MD LAB BLOOD ORDERABLES Final Res ult [facility] [address] [place] [phone] * BI Mammogram Screening Tomosynthesis Bilateral (12/28/2023 10:58 AM EDT) Anatomical Region Laterality Modality Breast Bilateral Mammography 12/28/2023 10:5 8 AM EDT Narrative 01/27/2024 5:59 AM EDT ? [facility] ? [address] ?[place] [address] ? Mammography Report ? Signed ? Patient: Izabela Jacobsen ?MR#: [id number] ?? [id number] ? : 1980 ?Acct:[id number] ? Age/Sex: 43 / F ?ADM Date: 04/26/24 ? Loc: HO.MAMMO ? Attending Dr: Lawanda Styles MD ? Ordering Physician: Lawanda Styles ?Results: 1Negative ? Date of Service: 12/28/23 ?Follow Up: 1 Year From Orig ?? inal Mammogram ? Procedure(s): MM tomosynthesis screening BI ?? Accession Number(s): [id number] ? cc: Lawanda Styles ? EXAMINATION: ?? [...] 01/27/24 0555 ? DD/ ? TD/TT: ? Jewelry Engraver: ? Procedure Note Domenica, Image - 01/27/2024 [facility] [address] [place] [address] Dr. Cumm[place], [place]NY [address] Mammography Report Signed Patient: Izabela JacobsenMR#: [id number] : 1980Acct:[id number] Age/Sex: 43 / FADM Date: 12/28/23 Loc: JOVANMaeMARAL Attending Dr: Lawanda Styels MD Ordering Physician: Dinora Stylesults: 1Negative Date of Service: 12/28/23Follow Up: 1 Year From Orig inal Mammogram Procedure(s): MM tomosynthesis screening BI Accession Number(s): [id number] cc: Lawanda Styles EXAMINATION: MM SCREENING DIGITAL [...] in OV> 01/27/24 0555 DD/ 1058 TD/TT: Jewelry Engraver: Lawanda Styles MD IMG BI PROCEDURES Final Result * Image-Guided Pap with Age-Based Screening??with CT/NG,??Trichomonas (08/21/2022 11:00 AM EST) Comment [facility] Comment: This order for age-based cervical cancer and STI screening follows ACOG guidelines(PB 168, 140, ZUF681). See individual assays for performing site location. Clinical Information: None given [facility] LMP: NONE GIVEN [facility] Prev. PAP: NONE GIVEN [facility] Prev. BX: NONE GIVEN [facility] SOURCE: None given [facility] [employer] [facility] Statement Of Adequacy: [facility] Comment: Satisfactory for evaluation. Endocervical/transformation zone component present. Age and/or menstrual status not provided Interpretation/Re sult: Negative for intraepithelial lesion or malignancy. [facility] Infection Shift in vaginal wilfrid suggestive of bacterial vaginosis. [facility] COMMENT: This Pap test has been evaluated with computer assisted technology. [employer] Railcar Carpenter: [facility] Comment: CMG, CT(ASCP) CT screening location: [address] ??[address] (Always Message) [employer] Comment: EXPLANATORY NOTE: The Pap is a [...] HPV nRNA E6/E7 Not Detected Not Detected [facility] Comment: Methodology: Fishing Boat Mate-Mediated Amplification This assay detects E6/E7 viral messenger RNA (mRNA) from 14 high-risk HPV types (16,18,31,33,35,39,45,51,52,56,58,59,66,68). Cervical sources are required for HPV testing. If a vaginal source from a patient who has had a total hysterectomy with removal of cervix was submitted, please contact the testing laboratory for alternative testing options. For additional information, please refer to http://education.ElasticDot/faq/MMY515g3 (This link if provided for information/ educational purposes only.) Chlamydia trachomatis RNA, TMA, Urogenital NOT DETECTED NOT DETECTED [facility] Neisseria gonorrhoeae RNA, TMA, Urogenital NOT DETECTED NOT DETECTED [facility] (Always Message) [employer] Comment: The analytical performance characteristics of this assay, when used to test SurePath(TM) specimens have been determined by [employer]. The modifications have not been cleared or approved by the FDA. This assay has been validated pursuant to the CLIA regulations and is used for clinical purposes. For additional information, please refer to https://UpNext.ElasticDot/faq/ZSU460 (This link is being provided for information/ educational purposes only.) Trichomonas vaginalis, QL, TMA, PAP Vial NOT DETECTED NOT DETECTED [facility] [place] [employer] Comment: The analytical performance characteristics of this assay have been determined by [employer]. The modifications have not been cleared or approved by the FDA. This assay has been validated pursuant to the CLIA regulations and is used for clinical purposes. For additional information, please refer to http://UpNext.ElasticDot/ faq/Trichomonastma (This link is being provided for information/ educational purposes only.) 08/21/2022 11:0 0 AM EST 08/22/2022 8:31 AM EST Traice Vela [facility] CYTOLOGY ORDERABLES F inal Result Performing Organization Address [facility] Co de Phone Number [employer] [address] [place] [address], [facility] [place] [phone] [employer] [place] [email or web address] [address] [facility], ([address]) [place] [address] * Pap Smear (08/21/2022 12:00 AM EST) Swab [facility] CenterTracieradha Brunoh. [facility]it[facility]TOLOGY ORDERABLES F inal Result Performing Organization Address [facility] Co de Phone Number [employer] [address] [place] [address], [facility] [place] [phone] from Last 3 Months or Most Recently Relevant to Health Maintenance Insurance [place] [address] C3 Care Teams Health Service Coordinator Relationship Specialty Start Date End Date Lawanda Styles MD [address] [place] [address] PCP - General Family Medicine 06/02/22
--- OUTSIDE RECORDS SUMMARY | 2025-01-02 11:12 | XMS_ITS | Encounter Summary ---
Author Organization [employer] [facility] Address [address] [facility] 7t [place] [address] Care Team Providers Care Automobile Lights Assembler Name Role Phone Lawanda Styles MD Primary Care Provider [phone] Encounter Details Date Type Department Care Team (Late st Contact Info) Description 09/13/2022 Abstract [facility] [address] [place], [place] [phone] Radha Suarez, ROLAND [address] [place] [address] Social History Tobacco Use Types Packs/Day Years [...] on filedocumented in this encounter Care Teams Automobile Lights Assembler Relationship Specialty Start Date End Date Lawanda Styles MD [address] [place] [address] PCP - General Family Medicine 06/02/22 documented as of this encounter
--- OUTSIDE RECORDS SUMMARY | 2025-01-02 11:12 | XMS_ITS | Clinical Summary ---
Author Organization [facility] ity Address [address] [place] [address] Care Team Providers Care Wharf Tender Name Role Phone Unavailable Primary Care Provider [...]
--- OUTSIDE RECORDS SUMMARY | 2025-01-02 11:12 | XMS_ITS | Encounter Summary ---
Author Organization [employer] Address [address] [place] [address] 7[address] [place] [address] Care Team Providers Care Financial Operations Analyst Name Role Phone Lawanda Styles MD Primary Care Provider [phone] Encounter Details Date Type Department Care Team ([facility] st Contact Info) Description 08/24/2022 Orders Only [facility] [address] [place] [address] Mihir Tinsley, PharmD ERRONEOUS ENCOUNTER--DISREGARD (Primary Dx) [...] Stimulating Hormone 0.04(L) 0.32 - 4.0 uIU/mL [facility] Comment:TSH 3rd Generation ( [facility]) 10/04/2022 10:4 0 AM EST 10/04/2022 1:52 PM EST [facility] External Provider LAB BLO OD ORDERABLES Final Result Performing Organization Address City/[facility] Co de Phone Number [facility] [address] [place] [address] [phone] * T4, Free (10/04/2022 10:40 AM EST) Free T4 (Free Thyroxine) 1.71 0.71 - 1.85 ng/dL [facility] 10/04/2022 10:4 0 AM EST 10/04/2022 1:52 PM EST [facility] External Provider LAB BLO OD ORDERABLES Final Result Performing Organization Address [facility] de Phone Number [facility] [address] [place] [phone] documented in this encounter Visit Diagnoses Diagnosis ERRONEOUS ENCOUNTER--DISREGARD- Primary documented in this encounter Care Teams Financial Operations Analyst Relationship Specialty Start Date End Date Lawanda Styles MD [address] [place] [phone] PCP - General Family Medicine 06/02/22 documented as of this encounter
== END 2025-01-02 10:13 | disposition home or self-care (01) ==
LOC: HO.MAMMO 10:12
PROVIDERS: PCP General Practice; Visit Provider General Practice
DX: Z12.31 Encounter for screening mammogram for malignant neoplasm of breast (principal)
CPT/HCPCS: 77063; 77067

== ENCOUNTER → 2025-01-02 10:30 | Outpatient (BNV) | payer MEDICAID, SELFPAY | PROVIDERS: PCP General Practice; Visit Provider Internal Medicine | DX: Z12.31 Encounter for screening mammogram for malignant neoplasm of breast (principal) | CPT/HCPCS: 77063; 77067 ==

== ENCOUNTER 2025-04-06 14:24 | Emergency (ER) | payer MEDICAID, SELFPAY ==
--- NOTE | ~2025-04-06 | CT_ITS ---
CLINICAL HISTORY: rectal bleeding, rectal mass CT abdomen and pelvis with contrast Comparison: None provided Findings: Right lower lobe atelectasis versus scar. Left base clear. No acute bony abnormalities. Liver and spleen within normal limits. Pancreas and adrenal glands unremarkable. Cholecystectomy. No significant focal renal abnormalities. Renal cysts without stones or hydronephrosis. Abdominal aorta is normal in caliber. No free fluid or adenopathy in the pelvis. No diverticulitis. Appendix unremarkable. Uterus normal size. No adnexal abnormality. Impression: Right lower lobe atelectasis versus scar No acute process in abdomen or pelvis This document has been electronically signed by: Shaq Wagner MD on 04/06/2025 21:42:35
[2025-04-06 15:07] VITALS: BP 113/57; PULSE 89; RESP 18; TEMP 36.8; O2SAT 100; BMI 31.0
--- NOTE | 2025-04-06 15:07 | ED.GENADULT ---
HPI - General Adult General Chief complaint: GI Bleed Stated complaint: colon problem Time Seen by Provider: 04/06/25 19:27 Source: patient Mode of arrival: ambulatory Limitations: no limitations History of Present Illness ED Provider: HPI narrative: 44-year-old woman presenting with increased rectal pain with bowel movements, this is going on for the past 2 weeks bright red blood in the toilet after BM, has not had no constipation per se, no abdominal pain no fevers or chills, she went to see walk-in clinic and they stated that they noted hemorrhoids reportedly during exam but also was sent in because there was something else was felt inside Related Data Home Medications ?Medication ?Instructions ?Recorded ?Confirmed buspirone 10 mg tablet 10 mg PO BID anxiety 12/04/22 04/16/24 fluoxetine 20 mg capsule 20 mg PO DAILY 12/04/22 04/16/24 lorazepam 0.5 mg tablet 0.5 mg PO BID PRN Anxiety 12/04/22 04/16/24 naproxen 500 mg tablet 500 mg PO BID PRN mild pain 12/04/22 04/16/24 trazodone 50 mg tablet 50 mg PO BEDTIME PRN Insomnia 12/04/22 04/16/24 Previous Rx's ?Medication ?Instructions ?Recorded levothyroxine 150 mcg tablet 150 mcg PO DAILY #90 tabs 12/31/23 bisacodyl 5 mg tablet,delayed 20 mg (4 x 5 mg) PO ONCE 1 day #4 01/01/24 release (Dulcolax (bisacodyl)) tabs polyethylene glycol 3350 17 238 g PO ONCE #238 grams 01/01/24 gram/dose oral powder (Miralax) amoxicillin 875 mg-potassium 1 tab PO BID 10 days #20 tabs 04/06/25 clavulanate 125 mg tablet hydrocortisone 2.5 % topical cream 1 appl [place] DAILY PRN pain #30 grams 04/06/25 with perineal applicator sennosides 8.6 mg-docusate sodium 1 tab-cap PO BEDTIME #30 tabs 04/06/25 50 mg tablet (Vegetable Laxative-Stool Softener) Allergies Allergy/AdvReac Type Severity Reaction Status Date / Time No Known Drug Allergies (NO Allergy Mild NONE Verified 04/06/25 15:11 KNOWN DRUG ALLERGIES) Review of Systems Constitutional: Constitutional: Reports as per HPI [facility] Past Medical History Medical History (Updated 04/06/25 @ 23:29 by Katty Medrano DO) Hx of transfusion of packed red blood cells Diverticulitis Bruises easily Depression Sleep apnea Hyperlipidemia PCOS (polycystic ovarian syndrome) Obesity Degenerative disc disease, lumbar Anemia History of Graves' disease Sickle cell disease Vitamin D deficiency Hypothyroidism Surgical History Hx of knee surgery Hx of neck surgery Hx of total thyroidectomy Hx of appendectomy Hx of tubal ligation Family History Family History Mother Diabetes Alzheimer disease Parkinson disease Father Prostate cancer Social History Social History Are you a primary career coach to a significant other at home: No Do you presently have visiting nurse or other home services: No Alcohol intake: current Alcohol intake frequency: holidays/special occasions only Patient Tobacco Use Status: Current everyday Tobacco user Cigarettes Per Day: 10 Smoked in Last 30 Days: Yes Use of substances other than those prescribed or required for medical reasons: Yes Substance Use Type: Marijuana Advance Directives: No Advance Directives Information Provided: No 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 , 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 Physical Exam ED Vital Signs: Vital Signs - 24 hr 04/06/25 15:07 04/06/25 19:27 04/06/25 20:20 Temperature 98.3 F 97.8 F 98.3 F Pulse Rate 89 88 83 Respiratory Rate 18 16 16 Blood Pressure 113/57 L 133/76 110/64 Pulse Oximetry 100 100 100 Oxygen Delivery Method Room Air Room Air Room Air 04/06/25 22:07 Temperature 97.8 F Pulse Rate 77 Respiratory Rate 16 Blood Pressure 114/65 Pulse Oximetry 100 Oxygen Delivery Method Room Air BMI result Body Mass Index 31.0 Const Other: Gen: ?Overall well-appearing patient Resp: ?No wheezing rales rhonchi no stridor moving air well Abd: ?Bowel sounds are present, no tenderness no rebound no rigidity rectal: Painful mass just past the anal verge MSK: FROM, strength 5/5 all extremities Skin: Warm, dry, intact, Neuro: ?Alert and oriented x3, moving upper and lower extremities symmetrically, no obvious facial asymmetry noted Course Course Course Narrative: RME performed by Cecile Chaney PA-C. Patient is a 44 year old assigned female at presenting to the emergency department with lower abdominal pain and intermittent pain with bowel movements with bright red blood. Detailed physical exam and review of systems are deferred to the register repairer. Labs ordered. Patient placed back in the waiting room pending room availability and results. Medications Administered Discontinued Medications Generic Name Dose Route Start Last Admin Trade Name Tessa PRN Reason Stop Dose Admin Iohexol 100 ml 04/06/25 20:36 04/06/25 20:36 Iohexol 350 Mg/Ml 100 Ml Infus..Btl IV 04/06/25 20:37 85 ml ONCE ONE Administration Morphine Sulfate 2 mg 04/06/25 19:37 04/06/25 20:22 Morphine Sulfate 4 Mg/Ml Cartridge IVPUSH 04/06/25 19:38 2 mg ONCE ONE Administration Protocol Medical Decision Making Medical Decision Making [facility] Narrative: I am considering whether the patient has thrombosed internal hemorrhoid which is rare but possible based on the palpable mass it is tender and she is presenting with bright red blood per rectum, we will obtain CT to evaluate the area for rectal masses however as well. Otherwise fairly benign abdominal exam I do not suspect diverticulitis colitis SBO. Advanced rectal malignancy is considered as well. 11:34 PM 04/06/2025 (Dr. Katty Medrano, D.O.) CT does not show evidence of acute process including masses in the rectum or abscesses. Patient is requesting discharge at this time. She feels her pain is not well controlled after morphine and has to go home to feed her dog. Given her negative workup today, low white blood cell count and no fever, I feel it is reasonable to attempt outpatient treatment. I had an extensive discussion with her regarding possibility of abscess and she did report a fever at occurred earlier last week. We will treat her with antibiotics, stool softeners and laxatives for constipation and have her follow-up with primary care. Discussed return precautions at length. Discharged home in stable condition. Differential Diagnosis Differential Diagnoses: The differential diagnosis associated with the presentation includes (Abscess, thrombosed internal hemorrhoid, rectal mass) Admission/Observation Consideration of admission/observation: Escalation of care including admission/observation considered Lab Data [facility] Lab Attestation statement: I reviewed the patient's lab results. 04/06/25 15:43 04/06/25 15:43 Labs: Lab Results 04/06/25 04/06/25 Range/Units 15:41 15:43 WBC 3.9 L (4.8-10.8) X10*3/uL RBC 4.19 L (4.20-5.50) X10*6/uL Hgb 11.7 L (12.0-16.0) g/dl Hct 33.9 L (37.0-47.0) % MCV 80.9 (80.0-98.0) fL MCH 27.9 (27.0-33.0) pg MCHC 34.5 (31.0-35.0) g/dl RDW 15.9 (11.0-16.0) % Plt Count 189 (160-400) X10*3/uL MPV 10.4 (9.4-12.3) fL Immature Gran % (Auto) 0.3 (0.0-0.4) % Neut % (Auto) 56.4 (45-73) % Lymph % (Auto) 33.1 (20-40) % [place] % (Auto) 7.8 (2-11) % Eos % (Auto) 1.6 (0-4) % Baso % (Auto) 0.8 (0-2) % Lymph # (Auto) 1.3 (1.2-4.9) X10*3/uL [place] # (Auto) 0.3 (0.1-1.2) X10*3/uL Eos # (Auto) 0.1 (0.0-0.4) X10*3/uL Baso # (Auto) 0.0 (0.0-0.2) X10*3/uL Abs Immat Gran (auto) 0.01 (0.00-0.03) X10*3/uL Absolute Neuts (auto) 2.2 (2.0-8.3) x10*3/uL Absolute Nucleated RBC 0.000 (0.0-0.012) X10*3/uL Nucleated RBC % (auto) 0.0 (0.0-0.2) /100WBC Sodium 141 (135-145) mmol/L Potassium 3.8 (3.3-5.1) mmol/L Chloride 109 H (96-108) mmol/L Carbon Dioxide 25 (22-29) mmol/L Anion Gap 11 L (12-20) BUN 8 L (9-16) mg/dL Creatinine 0.80 (0.5-1.4) mg/dL Estim Creat Clear Calc 114.8 Estimated GFR > 60 Random Glucose 88 (60-115) mg/dL Calcium 8.7 (8.4-10.2) mg/dL Magnesium 2.0 (1.6-2.6) mg/dL Total Bilirubin 0.4 (0.0-1.0) mg/dL AST 23 (5-31) U/L ALT 16 (0-31) U/L Alkaline Phosphatase 73 (39-117) U/L Total Protein 7.0 (6.5-8.0) g/dL Albumin 4.3 (3.5-5.0) g/dL Lipase 24 (8-78) U/L Urine Color Yellow Urine Appearance Clear Urine pH 6.0 (5.0-9.0) Ur Specific [place] 1.015 (1.005-1.025) Urine Protein Negative (Neg-Trace) mg/dL Urine Glucose (UA) Negative (Negative) mg/dL Urine Ketones Trace (Negative) mg/dL Urine Blood Negative (Negative) Urine Nitrite Negative (Negative) Ur Leukocyte Esterase Trace H (Negative) Urine RBC 0-2 (0-2) /HPF Urine WBC 0-5 (0-5) /HPF Ur Squamous Epith Cells 0-2 (0-2) /HPF Urine Bacteria None Seen (None Seen) Hyaline Casts 0-2 (0-2) /LPF Independent Interpretation I performed an independent interpretation of an: CT Scan (My evaluation of CT there is likely an abscess we will await official report) Radiology Impression Discussion of test interpretation with radiology: I have reviewed the radiologist's reading. Radiologist Impression: CT abdomen and pelvis with contrast Comparison: None provided Findings: Right lower lobe atelectasis versus scar. Left base clear. No acute bony abnormalities. Liver and spleen within normal limits. Pancreas and adrenal glands unremarkable. Cholecystectomy. No significant focal renal abnormalities. Renal cysts without stones or hydronephrosis. Abdominal aorta is normal in caliber. No free fluid or adenopathy in the pelvis. No diverticulitis. Appendix unremarkable. Uterus normal size. No adnexal abnormality. Impression: Right lower lobe atelectasis versus scar No acute process in abdomen or pelvis This document has been electronically signed by: Shaq Wagner MD on 04/06/2025 21:42:35 Discharge Plan Discharge Clinical Impression: Anal or rectal pain, Hematochezia, Constipation Patient Disposition: Home, Self-Care Instructions: Rectal Pain (ED) Additional Instructions: If you develop more fevers despite antibiotics or if you have worsening pain, vomiting, any new symptom that concerns you - you should return to the hospital immediately. Call 911 with any medical emergency. Prescriptions: New sennosides-docusate sodium [Vegetable Lax-Stool Softener] 8.6-50 mg tablet 1 tab-cap PO BEDTIME Qty: 30 0RF hydrocortisone 2.5 % cream with perineal applicator 1 appl [place] DAILY PRN (Reason: pain) Qty: 30 0RF amoxicillin-pot clavulanate 875-125 mg tablet 1 tab PO BID 10 Days Qty: 20 0RF No Action levothyroxine 150 mcg tablet 150 mcg PO DAILY Qty: 90 3RF naproxen 500 mg tablet 500 mg PO BID PRN (Reason: mild pain) fluoxetine 20 mg capsule 20 mg PO DAILY buspirone 10 mg tablet 10 mg PO BID lorazepam 0.5 mg tablet 0.5 mg PO BID PRN (Reason: Anxiety) trazodone 50 mg tablet 50 mg PO BEDTIME PRN (Reason: Insomnia) bisacodyl [Dulcolax (bisacodyl)] 5 mg tablet,delayed release (DR/EC) 20 mg PO ONCE 1 Days Qty: 4 0RF Rx Instructions: take 4 tabs at noon the day before your colonoscopy polyethylene glycol 3350 [Miralax] 17 gram/dose powder 238 g PO ONCE Qty: 238 0RF Rx Instructions: As directed by gastroenterology department at [facility] Print Language: Portuguese
[2025-04-06 15:46] LABS: MANUAL DIFF FLAG NO
[2025-04-06 15:49] LABS: Hematocrit 33.9 % (37.0-47.0); Hemoglobin 11.7 g/dl (12.0-16.0); Imm Gran Abs Auto 0.01 X10*3/uL (0.00-0.03); Imm Gran Pct Auto 0.3 % (0.0-0.4); Lymphocytes Absolute Auto 1.3 X10*3/uL (1.2-4.9); Mean Corpuscular HGB Conc 34.5 g/dl (31.0-35.0); Mean Corpuscular Hemoglobin 27.9 pg (27.0-33.0); Mean Corpuscular Volume 80.9 fL (80.0-98.0); NRBC Abs Auto 0.000 X10*3/uL (0.0-0.012); NRBC Pct Auto 0.0 /100WBC (0.0-0.2); Platelet Count 189 X10*3/uL (160-400); Red Blood Count 4.19 X10*6/uL (4.20-5.50); White Blood Count 3.9 X10*3/uL (4.8-10.8)
[2025-04-06 15:50] LABS: Appearance Urine Clear; Glucose Urine UA Negative (Negative); PH 6.0 (5.0-9.0); Specific Gravity - Urine 1.015 (1.005-1.025); UMIC TRIGGER UACC YES
[2025-04-06 16:05] LABS: Alanine Aminotransferase 16 U/L (0-31); Albumin Level 4.3 g/dL (3.5-5.0); Alkaline Phosphatase 73 U/L (39-117); Anion Gap 11 (12-20); Aspartate Amino Transferase 23 U/L (5-31); Blood Urea Nitrogen 8 mg/dL (9-16); Calcium 8.7 mg/dL (8.4-10.2); Carbon Dioxide 25 mmol/L (22-29); Chloride 109 mmol/L (96-108); Creatinine Clr Calc Pharmacy 114.8; Estimated Glomerular Filt Rate > 60; Lipase 24 U/L (8-78); Magnesium 2.0 mg/dL (1.6-2.6); Potassium 3.8 mmol/L (3.3-5.1); Sodium 141 mmol/L (135-145); Total Protein 7.0 g/dL (6.5-8.0)
[2025-04-06 19:27] VITALS: BP 133/76; PULSE 88; RESP 16; TEMP 36.6; O2SAT 100
--- OUTSIDE RECORDS SUMMARY | 2025-04-06 19:45 | XMS_ITS | Clinical Summary ---
Author Organization [facility] Address [address] [place] [address] Care Team Providers Care Operating Room Surgical Technologist Name Role Phone Unavailable Primary Care Provider [...] Smear 11/16/1999 Colorectal Cancer Screening: Colonoscopy 08/06/2022 HIV Screening 08/06/2022 Hepatitis C Screening 08/06/2022 Social Influencers of Health Screening 08/06/2022 COVID-19 Vaccine (1 - 2023-2 5 season) 2024 Depression Screening 09/03/2024 Influenza Vaccine (#1) 2025 DTaP,Tdap,and Td Vaccines (2 - Td [...] 5 Years) and At-Risk Patients (6 to 49 Years) Aged Out No longer eligi ble based on patient's age to complete this topic RSV Immunization Patients Un anita 20 months Aged Out No longer eligible b ased on patient's age to complete this topic Varicella Vaccines Aged Out No longer eligible based on patient's age to complete this topic
--- OUTSIDE RECORDS SUMMARY | 2025-04-06 19:45 | XMS_ITS | Encounter Summary ---
Author Organization [employer] Address [address] [facility] [address] [place] [address] Care Team Providers Care News Clipping Cutter Name Role Phone Lawanda Styles MD Primary Care Provider [phone] Encounter Details Date Type Department Care Team ([facility] st Contact Info) Description 09/13/2022 Abstract [facility] [address] [place], [place] [phone] Radha Suarez, ROLAND [address] [place], [place] [phone] Social History Tobacco Use Types Packs/Day Years [...] Region Laterality Modality Other us Historical Provider MD HEALTH MAINTENANCE Final Result documented in this encounter Visit Diagnoses Not on filedocumented in this encounter Care Teams News Clipping Cutter Relationship Specialty Start Date End Date Lawanda Styles MD [address] [place] [address] PCP - General Family Medicine 06/02/22 documented as of this encounter
[2025-04-06 20:20] VITALS: BP 110/64; PULSE 83; RESP 16; TEMP 36.8; O2SAT 100
[2025-04-06] MEDS: iohexoL 350 MG/ML 100 ML INFUS..BTL IV (20:36)
[2025-04-06 22:07] VITALS: BP 114/65; PULSE 77; RESP 16; TEMP 36.6; O2SAT 100
[2025-04-06 23:49] VITALS: BP 114/65; PULSE 77; RESP 16; TEMP 36.6; O2SAT 100
== END 2025-04-06 23:49 | disposition home or self-care (01) ==
PROVIDERS: Physician Assistant Medical; Emergency Provider Emergency Medicine; PCP General Practice
DX: K62.89 Other specified diseases of anus and rectum (principal); K92.1 Melena; K59.00 Constipation, unspecified; Z79.899 Other long term (current) drug therapy
CPT/HCPCS: 36415; 74177; 80053; 81001; 83690; 83735; 85025; 96374; 99284; J2270; Q9967

== ENCOUNTER → 2025-04-06 19:37 | Outpatient (BNV) | payer MEDICAID, SELFPAY | PROVIDERS: Emergency Provider Emergency Medicine; PCP General Practice; Visit Provider Radiology Diagnostic Radiology | DX: K62.89 Other specified diseases of anus and rectum (principal) | CPT/HCPCS: 74177 ==

== ENCOUNTER 2025-04-14 14:20 | Outpatient (AMB) | payer MEDICAID, SELFPAY ==
--- NOTE | 2025-04-14 14:21 | MHC.OFFVIS ---
Vital Signs 04/14/25 14:22 Height 5 ft 11 in Weight 220 lb BMI 30.7 BP 118/80 Blood Pressure Location Lt brachial Position Sitting Pulse 92 Pulse Source Pulse Oximeter Pulse Oximetry (%) 98 Oxygen Delivery Method Room Air Intake Visit Reasons: ED FUV. Rectal bleeding. Discuss colo Intake Note: New pt for initial colo screening + eval of rectal bleeding. CC: C.O. constipation but having loose stools when she does go. Pt states she feels she has difficulty with transit and evacuation but will have soft stools when she does go. Pt also reports B/L LQ abd pain and rectal pain. BRB per rectum intermittently. Bloating and nausea intermittently. Occupational Therapist Rehab Manager Required: No Accompanied by: Self / Same As Patient Allergies No Known Drug Allergies (NO KNOWN DRUG ALLERGIES) Allergy (Mild, Verified 04/06/25 15:11) NONE Medication List - Last Reconciled 04/14/25 by Norma Bañuelos, LOFTSMAN/WOMAN-BC amoxicillin-pot clavulanate 875-125 mg 1 tab PO BID 10 days bisacodyl (Dulcolax (bisacodyl)) 10 mg (2 x 5 mg) PO BEDTIME buspirone 10 mg PO BID fluoxetine 20 mg PO DAILY hydrocortisone 2.5% 1 appl IA DAILY PRN levothyroxine 150 mcg PO DAILY lorazepam 0.5 mg PO BID PRN naproxen 500 mg PO BID PRN phentermine 30 mg PO DAILY polyethylene glycol 3350 (Miralax) 238 grams PO ONCE sennosides-docusate sodium 8.6-50 mg (Vegetable Laxative-Stool Softener) 1 tab-cap PO BEDTIME trazodone 50 mg PO BEDTIME PRN HPI HPI ED FUV. Rectal bleeding. Discuss colo: Details: LAST VISIT: Screen for colon cancer Plan Patient denies any GI, cardiac or respiratory symptoms. However patient reports that last month she had abdominal pain was seen at [facility] in the ER and was diagnosed with diverticulitis. Patient was placed on antibiotics. Patient reports paternal cousin was diagnosed with colorectal cancer in his 30s. ?Denies any issues with anesthesia in the past.? Denies any history of sleep apnea.? No history infectious diseases in the past or present.? Not on any anticoagulation therapy.? Patient denies melena, hematochezia, unintentional weight loss or ribbon like stools.? Discussed at length the pre-procedure,? prep, diet & medications as well as what to expect prior, during and after the procedure.?? Stressed the importance of good bowel prep. ?Recommended the use of Vaseline or Calmoseptine OTC & baby wipes with bowel movements to promote comfort.? ?Patient verbalizes understanding and agrees to plan of care.? She was given the opportunity to ask questions and all questions answered.? We will see her after the procedure.? New bisacodyl (Dulcolax (bisacodyl)) take 4 tabs at noon the day before your colonoscopy 20 mg (4 x 5 mg) PO ONCE 4 tabs 0RF 1 day Z12.11 polyethylene glycol 3350 (Miralax) As directed by gastroenterology department at [facility] 238 grams PO ONCE 238 grams 0RF Z12.11 ED VISIT 04/06/2025 MDM Narrative: I am considering whether the patient has thrombosed internal hemorrhoid which is rare but possible based on the palpable mass it is tender and she is presenting with bright red blood per rectum, we will obtain CT to evaluate the area for rectal masses however as well. Otherwise fairly benign abdominal exam I do not suspect diverticulitis colitis SBO. Advanced rectal malignancy is considered as well. 11:34 PM 04/06/2025 (Dr. Katty Medrano, D.O.) CT does not show evidence of acute process including masses in the rectum or abscesses. Patient is requesting discharge at this time. She feels her pain is not well controlled after morphine and has to go home to feed her dog. Given her negative workup today, low white blood cell count and no fever, I feel it is reasonable to attempt outpatient treatment. I had an extensive discussion with her regarding possibility of abscess and she did report a fever at occurred earlier last week. We will treat her with antibiotics, stool softeners and laxatives for constipation and have her follow-up with primary care. Discussed return precautions at length. Discharged home in stable condition. Differential Diagnosis Differential Diagnoses: The differential diagnosis associated with the presentation includes (Abscess, thrombosed internal hemorrhoid, rectal mass) TODAY'S VISIT: Patient is here today for follow-up after ED visit. Patient was seen on April 06 in the ED for rectal bleed. Digital exam performed and possible hemorrhoids or mass. Patient was scheduled for colonoscopy last year, however procedure was canceled. Patient did the prep and received a phone call in the morning the procedure was canceled. Patient reports having constipation. No change since last visit. Still no cardiac or respiratory symptoms. Currently patient is taking senna Colace combination, able to move her bowels, however she does not empty her bowels completely. As mentioned above patient has a family history of CRC. Paternal cousin diagnosed at age 30 with colorectal cancer. Patient reports that since April 06 she has not noticed any blood in her stool. Denies melena, unintentional weight loss or ribbon like stools. Patient started on oral weight loss medication about 3 months ago or so phentermine 30 mg daily [facility], [facility] Medical History Hx of transfusion of packed red blood cells Diverticulitis Bruises easily Depression Sleep apnea Hyperlipidemia PCOS (polycystic ovarian syndrome) Obesity Degenerative disc disease, lumbar Anemia History of Graves' disease Sickle cell disease Vitamin D deficiency Hypothyroidism Surgical History Hx of knee surgery Hx of neck surgery Hx of total thyroidectomy Hx of appendectomy Hx of tubal ligation Family History Mother Diabetes Alzheimer disease Parkinson disease Father Prostate cancer Social History Are you a primary floor care specialist to a significant other at home: No Do you presently have visiting nurse or other home services: No Alcohol intake: current Alcohol intake frequency: holidays/special occasions only Patient Tobacco Use Status: Current everyday Tobacco user Cigarettes Per Day: 10 Substance Use Type: Marijuana 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 , 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 Review of Systems Const Denies weight gain and Denies weight loss ENT Reports no additional complaints, Denies dysphagia and Denies odynophagia Card Reports no additional complaints Resp Reports no additional complaints GI Denies abdominal pain, Denies belching, Denies melena, Denies bloating, Denies change in bowel habits, Denies dysphagia, Denies excessive flatus, Denies dyspepsia, Reports heartburn (today no breakfast had coffee), Denies diarrhea, Denies loose stools, Denies nausea, Denies odynophagia and Denies vomiting Musc Reports no additional complaints Neuro Reports no additional complaints Psych Reports no additional complaints Endo Reports no additional complaints Physical Exam Vital Signs: Last Vital Signs Pulse 92 04/14/25 14:22 BP 118/80 04/14/25 14:22 Pulse Ox 98 04/14/25 14:22 Oxygen Delivery Method Room Air 04/14/25 14:22 BMI result Body Mass Index 30.7 Const General: healthy appearing, no acute distress and well developed Nutritional Appearance: well nourished and obese Orientation/consciousness: patient oriented x3 Resp Effort & Inspection: normal respiratory effort, able to speak in complete sentences, no tracheal deviation and symmetric chest movement Auscultation: clear to auscultation bilaterally Cardio Rate: regular rate GI Inspection: Yes normal to inspection, No distended and Yes obesity Palpation (GI): Soft to palpation, not firm, nontender and No hepatosplenomegaly present Auscultation: normal bowel sounds General: Yes no CVA tenderness Back/Spine/Pelvis Back: no CVA tenderness Skin General skin exam: elasticity normal, turgor normal and dry skin Neuro General: patient oriented x3 Psych Appearance: grossly normal Mental Status: mental status grossly normal Assessment & Plan Assessment & Plan (1) Screen for colon cancer: Code(s): Z12.11 - Encounter for screening for malignant neoplasm of colon Plan Patient denies any cardiac or respiratory symptoms. However patient seen in the ED over a week ago for blood in her stools. Patient reports paternal cousin was diagnosed with colorectal cancer in his 30s. ?Denies any issues with anesthesia in the past.? Denies any history of sleep apnea.? No history infectious diseases in the past or present.? Not on any anticoagulation therapy.? Patient denies melena, hematochezia, unintentional weight loss or ribbon like stools.? Discussed at length the pre-procedure,? prep, diet & medications as well as what to expect prior, during and after the procedure.?? Stressed the importance of good bowel prep. ?Recommended the use of Vaseline or Calmoseptine OTC & baby wipes with bowel movements to promote comfort.? ?Patient verbalizes understanding and agrees to plan of care.? She was given the opportunity to ask questions and all questions answered.? We will see her after the procedure.? Medications: New bisacodyl (Dulcolax (bisacodyl)) 10 mg (2 x 5 mg) PO BEDTIME 180 tabs 4RF polyethylene glycol 3350 (Miralax) As directed by gastroenterology department at [facility] 238 grams PO ONCE 238 grams 0RF Z12.11 - Encounter for screening for malignant neoplasm of colon Coding Level of Care Code Est Pt Level 3 (05944) Diagnoses Screen for colon cancer Z12.11 Time Spent (min) 30 Comment 20 minutes spent with patient and additional 10 minutes spent reviewing her records
[2025-04-14 14:22] VITALS: BP 118/80; PULSE 92; O2SAT 98; BMI 30.7
--- OUTSIDE RECORDS SUMMARY | 2025-04-14 15:15 | XMS_ITS | Encounter Summary ---
Author Organization [employer] Address [address] [place] [address] Care Team Providers Care Associate Director Of Development Name Role Phone Lawanda Styles MD Primary Care Provider [phone] Encounter Details Date Type Department Care Team ([facility] st Contact Info) Description 09/13/2022 Abstract [facility] MEDICINE [address] [place], [place] [phone] Radha Suarez, ROLAND [address] [place], [place] [phone] Social History Tobacco Use Types Packs/Day Years [...] on filedocumented in this encounter Care Teams Associate Director Of Development Relationship Specialty Start Date End Date Lawanda Styles MD [address] [place] [address] PCP - General Family Medicine 06/02/22 documented as of this encounter
--- OUTSIDE RECORDS SUMMARY | 2025-04-14 15:15 | XMS_ITS | Clinical Summary ---
Author Organization [facility] ity Address [address] [place] [address] Care Team Providers Care Investment Recovery Technician Name Role Phone Unavailable Primary Care Provider [...]
== END 2025-04-14 14:54 | disposition home or self-care (01) ==
LOC: HO.HGI 14:21
PROVIDERS: PCP General Practice; Visit Provider Nurse Practitioner Family
DX: Z01.818 Encounter for other preprocedural examination (principal); Z12.11 Encounter for screening for malignant neoplasm of colon
CPT/HCPCS: 99213

== ENCOUNTER → 2025-04-14 14:20 | Outpatient (BNVA) | payer MEDICAID, SELFPAY | PROVIDERS: PCP General Practice; Visit Provider Nurse Practitioner Family | DX: Z01.818 Encounter for other preprocedural examination (principal); R19.5 Other fecal abnormalities | CPT/HCPCS: 99212 ==

== ENCOUNTER 2025-05-01 06:28 | Day surgery (SDC) | payer MEDICAID, SELFPAY ==
--- OUTSIDE RECORDS SUMMARY | 2025-04-16 12:49 | XMS_ITS | Clinical Summary ---
Author Organization [facility] ity Address [address] [place] [address] Care Team Providers Care Video Game Script Writer Name Role Phone Unavailable Primary Care Provider [...]
--- OUTSIDE RECORDS SUMMARY | 2025-04-16 12:49 | XMS_ITS | Encounter Summary ---
Author Organization [employer] Address [address] [place] [address] Care Team Providers Care Bias Machine Operator Name Role Phone Lawanda Styles MD Primary Care Provider [phone] Encounter Details Date Type Department Care Team ([facility] st Contact Info) Description 09/13/2022 Abstract [facility] MEDICINE [address] [place], [place] [phone] Radha Suarez, ROLAND [address] [place], [place] [phone] Social History Tobacco Use Types Packs/Day Years [...] on filedocumented in this encounter Care Teams Bias Machine Operator Relationship Specialty Start Date End Date Lawanda Styles MD [address] [place] [address] PCP - General Family Medicine 06/02/22 documented as of this encounter
[2025-04-28 14:16] VITALS: BMI 30.7
--- NOTE | 2025-04-30 10:57 | P.CONAN_ITS ---
Documented by User: Delaney Garcia NP 04/30/25 11:03 HPI - Anesthesia Eval Consult details Narrative: 44yo F for Colonoscopy PMFSH Active Problems Active Problems: All Active Problems Left knee pain (Acute) Tear of medial meniscus of left knee (Acute) History of Graves' disease (Acute) Sickle cell disease (Acute) Vitamin D deficiency (Acute) Hypothyroidism (Acute) Past Medical History Medical History Hx of transfusion of packed red blood cells Diverticulitis Bruises easily Depression Sleep apnea Hyperlipidemia PCOS (polycystic ovarian syndrome) Obesity Degenerative disc disease, lumbar Anemia History of Graves' disease Sickle cell disease Vitamin D deficiency Hypothyroidism Family History Family History Mother Diabetes Alzheimer disease Parkinson disease Father Prostate cancer Family history of problems with anesthesia: No Surgical History Surgical History Hx of knee surgery Hx of neck surgery Hx of total thyroidectomy Hx of appendectomy Hx of tubal ligation History of Problems with Anesthesia: No Social History Social History Are you a primary before and after school daycare worker to a significant other at home: No Do you presently have visiting nurse or other home services: No Alcohol intake: current Alcohol intake frequency: holidays/special occasions only Patient Tobacco Use Status: Current everyday Tobacco user Tobacco use type: Cigarette Cigarette Packs Per Day: 0.5 Cigarettes Per Day: 10.0 Smoked in Last 30 Days: Yes Use of substances other than those prescribed or required for medical reasons: Yes Substance Use Type: Marijuana Substance Use Frequency: Daily Have you been hit, kicked, punched, or otherwise hurt by someone within the past year? 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 Meds Allergies Allergy/AdvReac Type Severity Reaction Status Date / Time No Known Drug Allergies (NO Allergy Mild NONE Verified 05/01/25 06:44 KNOWN DRUG ALLERGIES) Home Medications ?Medication ?Instructions ?Recorded ?Confirmed ?Last Taken ?Type buspirone 10 mg tablet 10 mg PO BID anxiety 3 05/01/25 03/07/24 History fluoxetine 20 mg capsule 20 mg PO DAILY 12/04/2204/04 Unknown History lorazepam 0.5 mg tablet 0.5 mg PO BID PRN Anxiety 05/01/25 Unknown History naproxen 500 mg tablet 500 mg PO BID PRN mild pain 12/04/22 05/01/25 04/29/25 History trazodone 50 mg tablet 50 mg PO BEDTIME PRN Insomni a 12/04/22 05/01/25 Unknown History phentermine 30 mg capsule 30 mg PO DAILY 04/14/2504/04 Unknown History Exam Height,Weight and Vital Signs: Height 5 ft 11 in Weight 99.79 kg Pertinent Lab Results Pertinent Lab Results: Laboratory Tests 04/06/25 15:43 WBC 3.9 L Hgb 11.7 L Hct 33.9 L Plt Count 189 Sodium 141 Potassium 3.8 Chloride 109 H Carbon Dioxide 25 BUN 8 L Creatinine 0.80 Assessment and Plan Assessment Anesthesia Assessment: Chart Reviewed Final Anesthetic Review Family History of Problems with Anesthesia: No History of Problems with Anesthesia: No Documented by User: Laura Newton MD 05/01/25 07:30 PMFSH Past Medical History Medical History Hx of transfusion of packed red blood cells Diverticulitis Bruises easily Depression Sleep apnea Hyperlipidemia PCOS (polycystic ovarian syndrome) Obesity Degenerative disc disease, lumbar Anemia History of Graves' disease Sickle cell disease Vitamin D deficiency Hypothyroidism Family History Family History Mother Diabetes Alzheimer disease Parkinson disease Father Prostate cancer Surgical History Surgical History Hx of knee surgery Hx of neck surgery Hx of total thyroidectomy Hx of appendectomy Hx of tubal ligation Social History Social History Are you a primary before and after school daycare worker to a significant other at home: No Do you presently have visiting nurse or other home services: No Alcohol intake: current Alcohol intake frequency: holidays/special occasions only Patient Tobacco Use Status: Current everyday Tobacco user Tobacco use type: Cigarette Cigarette Packs Per Day: 0.5 Cigarettes Per Day: 10.0 Smoked in Last 30 Days: Yes Use of substances other than those prescribed or required for medical reasons: Yes Substance Use Type: Marijuana Substance Use Frequency: Daily Have you been hit, kicked, punched, or otherwise hurt by someone within the past year? 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 Meds Allergies Allergy/AdvReac Type Severity Reaction Status Date / Time No Known Drug Allergies (NO Allergy Mild NONE Verified 05/01/25 06:44 KNOWN DRUG ALLERGIES) Home Medications ?Medication ?Instructions ?Recorded ?Confirmed ?Last Taken ?Type buspirone 10 mg tablet 10 mg PO BID anxiety 3 05/01/25 03/07/24 History fluoxetine 20 mg capsule 20 mg PO DAILY 12/04/2204/04 Unknown History lorazepam 0.5 mg tablet 0.5 mg PO BID PRN Anxiety 05/01/25 Unknown History naproxen 500 mg tablet 500 mg PO BID PRN mild pain 12/04/22 05/01/25 04/29/25 History trazodone 50 mg tablet 50 mg PO BEDTIME PRN Insomni a 12/04/22 05/01/25 Unknown History phentermine 30 mg capsule 30 mg PO DAILY 04/14/2504/04 Unknown History Exam Airway Mallampati Class: II TM Dist: >3cm Neck ROM: Full Heart: rrr Lungs: cta Assessment and Plan Assessment Anesthesia Assessment: Anesthesia Plan Discussed Final Anesthetic Review NPO: Yes ASA Class: III Final Preanesthetic Review: No Changes in Pt Med Stat, Meds/Allgs Chart Reviewed, Consent Obtained/Reviewed and Anes Risks/Benef Reviewed Patient Risk: Intermediate Procedure Risk: Low Anesthetic Plan Anesthetic Plan: MAC: and Agree w/ Assess. and Plan Disposition: Standard PACU
[2025-05-01 06:46] VITALS: BP 111/58; PULSE 69; RESP 16; TEMP 36.3; O2SAT 98; BMI 29.9
[2025-05-01] MEDS: Lactated Ringers 1,000 ML 100 ML IVCONT (06:53)
--- NOTE | 2025-05-01 07:43 | MHC.SHP ---
Pre-Procedural Eval Section A - 24 Hr Update-Section A only Date of Service: 05/01/25 The patient is an INPATIENT: No The patient has been examined within 24 hours of the surgical procedure. The History & Physical has been completed within 30 days and I have reviewed it.: Yes Section B - Complete if H&P > 30 days Chief Complaint: rectal bleeding,screening Allergies: Allergies Allergy/AdvReac Type Severity Reaction Status Date / Time No Known Drug Allergies (NO Allergy Mild NONE Verified 05/01/25 06:44 KNOWN DRUG ALLERGIES) Plan Diagnosis/Plan: Unchanged I have reviewed the history and physical and performed a pertinent physical examination on my patient. No changes have occurred unless specified. Time Spent With Patient Time: Total time managing care of this patient today ____ minutes.
[2025-05-01 08:18] VITALS: BP 127/72; PULSE 90; RESP 12; TEMP 36.1; O2SAT 97
--- NOTE | 2025-05-01 08:23 | P.OPN-COLO_ITS ---
Colonoscopy Operative Note Operative Note Date of Service: 05/01/25 Narrative: Procedure: Colonoscopy Indication: Rectal bleeding Endoscopist: Digna Fields MD Anesthesia Provider: Mina Yadav CRNA Anesthesia type: MAC Instrument: Olympus [id number]-[id number] Consent: Indication, risks vs benefits, and alternatives were discussed with the patient who gave written informed consent to proceed. EKG, pulse, pulse oximetry and blood pressure were monitored throughout the procedure. Please see anesthesia flowsheet. Procedure: The patient was brought to the procedure room and placed in the left lateral decubitus position. IV medications were administered by the anesthesia provider in attendance. A digital rectal exam was performed which was abnormal for hemorrhoids. A distal attachment cap was affixed to the tip of the colonoscope which was then inserted through the anus and advanced through the colon to the cecum at 75 cm,and terminal ileum. Appendiceal orifice and ileocecal valve were identified. Mucosa was carefully examined under high definition white light as the instrument was slowly withdrawn in a retrograde panoramic fashion. Retroflexion was performed in rectum. The procedure was not difficult. There were no immediate obvious complications. The quality of the prep was BBPS: 2+3+3 = adequate Withdrawal time 8 minutes. Limitations: No limitations. Findings: Mucosa: Normal to cecum and terminal ileum. Protruding lesions: * Large internal hemorrhoids with stigmata of recent bleeding. Impression: 1. Normal colon mucosa 2. External and internal hemorrhoids Recommendations: - rectal bleeding was likely secondary to hemorrhoids - recommend repeat colonoscopy for asymptomatic colorectal cancer screening in 10 years
[2025-05-01 08:33] VITALS: BP 129/76; PULSE 60; RESP 20; TEMP 36.5; O2SAT 100
== END 2025-05-01 09:38 | disposition home or self-care (01) ==
PROVIDERS: PCP General Practice; Visit Provider Internal Medicine
PROC: 0DJD8ZZ Inspection of Lower Intestinal Tract, Via Natural or Artificial Opening Endoscopic (ICD-10-PCS; CPT 45378; principal; 2025-05-01 07:30)
DX: Z12.11 Encounter for screening for malignant neoplasm of colon (principal); K64.8 Other hemorrhoids; K64.4 Residual hemorrhoidal skin tags; K62.5 Hemorrhage of anus and rectum; E78.5 Hyperlipidemia, unspecified; E03.9 Hypothyroidism, unspecified; E55.9 Vitamin D deficiency, unspecified; D64.9 Anemia, unspecified; G47.30 Sleep apnea, unspecified; D57.1 Sickle-cell disease without crisis; F17.210 Nicotine dependence, cigarettes, uncomplicated; F12.90 Cannabis use, unspecified, uncomplicated; Z79.899 Other long term (current) drug therapy
CPT/HCPCS: 45378; J2003; J2704

== ENCOUNTER → 2025-05-01 06:28 | Outpatient (BNV) | payer MEDICAID, SELFPAY | PROVIDERS: PCP General Practice; Visit Provider Internal Medicine | DX: K62.5 Hemorrhage of anus and rectum (principal); K64.8 Other hemorrhoids | CPT/HCPCS: 45378 ==

== ENCOUNTER 2025-07-14 14:47 | Outpatient (REF) | payer MEDICAID, SELFPAY ==
--- OUTSIDE RECORDS SUMMARY | 2025-07-14 14:00 | XMS_ITS | Encounter Summary ---
Author Organization [employer] Address [address] [facility] [address] [place] [address] Care Team Providers Care Spray I Painter Name Role Phone Lawanda Styles MD Primary Care Provider [phone] Reason for Referral * Consultation (Routine) - Pending Review Specialty Diagnoses / Procedures Referred By Sheri peraza Referred To Contact Physical Therapy Diagnoses Cervical radiculopathy Neena Levy MD [address] [place] [address] Phone: tel: fax: Referral ID Status Reason Start Date Expiration Date Visits Requested Visits Authorized [id number] Pending Review Specialty Services Required 5 07/14/2026 1 1 Encounter Details Date Type Department Care Team (Latest Contact Info) Description 07/14/2025 2:00 PM EST Office Visit [facility] [address] [place] [address] [phone] Neena Levy MD [address] [place] [phone] Cervical radiculopathy (Primary Dx) Social History Tobacco [...] 5 days Referral to Physical Therapy; Future This note was drafted using Ambient (AI) technology. The patient/patient's guardian has been informed and has consented to the use of this technology: Yes documented in this encounter Plan of Treatment Upcoming Encounters Date Type Department Care Team (Late st Contact Info) Description 07/22/2025 11:00 AM EST Office Visit [facility] [address] [place] [phone] Neena Levy MD [address] [place] [address] 09/02/2025 9:00 AM EST Office Visit [address] [phone] Lawanda Styles MD [address] [place] [address] Scheduled Orders Name Type Priority Associated Diagnoses Orde r Schedule XR CERVICAL SPINE 3V Imaging Routine Cervical radiculopathy Expected: 07/14/2025, Expires: 07/14/2026 Scheduled Referrals Name Type Priority Associated Diagnoses Orde r Schedule Referral to Physical Therapy Outpatient Referral Routine Cervical radiculopathy Expected: 07/14/2025 (Approximate), Expires: 07/14/2026 documented as of this encounter Visit Diagnoses Diagnosis Cervical radiculopathy- Primary Brachial neuritis or radiculitis nos documented in this encounter Additional Health Concerns Assessment Noted Time PHQ-9 Depression Total Score: 2 12/20/19 25 10:27 AM EDT documented as of this encounter Care Teams Spray I Painter Relationship Specialty Start Date End Date Lawanda Styles MD [address] [place] [address] PCP - General Family Medicine 06/02/22 documented as of this encounter
--- OUTSIDE RECORDS SUMMARY | 2025-07-14 16:34 | XMS_ITS | Encounter Summary ---
Author Organization [employer] Address [address] [place] [address] [address] [place] [address] Care Team Providers Care Operations Support Specialist Name Role Phone Lawanda Styles MD Primary Care Provider [phone] Encounter Details Date Type Department Care Team (Late Contact Info) Description 09/13/2022 Abstract [facility] MED[facility] [address] [place] [address] [phone] Radha Suarez RN [address] [place] [address] [phone] Social History Tobacco Use Types Packs/Day Years [...] as of this encounter Plan of Treatment Upcoming Encounters Date Type Department Care Team (Late Contact Info) Description 07/22/2025 11:00 AM EST Office Visit [facility] [address] [place] [address] [phone] Neena Levy MD [address] [place], [place] [phone] 09/02/2025 9:00 AM EST Office Visit [facility] [address] [facility] [place] [phone] Lawanda Styles MD [address] [facility] [place] [phone] documented as of this encounter Procedures Procedure Name Priority Date/Time Associated Diagnosis Comments MAMMOGRAPHY Routine 09/09/2022 documented in this encounter Results * Mammography (09/09/2022) Mammogram Birads 1: Negative Recommendation- Annual mammography screening Comment:BIRADS 1:Negative Anatomical Region Laterality Modality Other Historical Provider HEALTH MAINTENANCE Final Result documented in this encounter Visit Diagnoses Not on filedocumented in this encounter Care Teams Operations Support Specialist Relationship Specialty Start Date End Date Lawanda Styles MD [address] [facility] [place] [place] [phone] PCP - General Family Medicine 06/02/22 documented as of this encounter
--- OUTSIDE RECORDS SUMMARY | 2025-07-14 16:34 | XMS_ITS | Clinical Summary ---
Author Organization [employer] Address [address] [facility] 7t [place] [address] Care Team Providers Care Process Safety Engineering Technologist Name Role Phone Lawanda Styles MD Primary Care Provider [phone] Allergies No known active allergies Medications busPIRone (Buspar) 10 MG tablet Take 1 tablet (10 mg) by mouth 2 times daily. 180 tablet 3 5 Active FLUoxetine (PROzac) 20 MG capsule Take 1 capsule (20 mg) by mouth Once per day. 90 capsule 3 5 Active Diclofenac Sodium 1 % gelIndications:Ac [place] pain of right knee Apply 1 Application topically Once per day. 100 g 3 5 Active levothyroxine (Synthroid, Levoxyl) 150 MCG tabletIndications :Hypothyroidism, unspecified TAKE 1 TABLET BY MOUTH EVERY DAY 90 tablet 3 5 Active phentermine 30 MG capsuleIndication s:Class 1 obesity without serious comorbidity with body mass index (BMI) of 33.0 to 33.9 in adult, unspecified obesity type Take 1 capsule (30 mg) by mouth before breakfast. 30 capsule 5 Active naproxen (Naprosyn) 500 MG tablet TAKE 1 TABLET BY MOUTH TWICE DAILY IN THE MORNING AND AT BEDTIME NEEDED FOR MILD PAIN 40 tablet 3 5 Active ibuprofen 600 MG tabletIndications :Cervical radiculopathy Take 1 tablet (600 mg) by mouth every 8 (eight) hours if needed for moderate pain or fever. 30 tablet 5 025 Active cyclobenzaprine (Flexeril) 10 MG tabletIndications :Cervical radiculopathy One tab po at bedtime prn pain of muscles, do not drive with medicaion 30 tablet 5 Active predniSONE (Deltasone) 20 MG tabletIndications :Cervical radiculopathy 2 tabs po daily for 5 days 10 tablet 5 Active Active Problems Problem Noted Date Diagnosed Date [...] up to date, has upcoming appointment at [facility] screen to be referred, pt is [...] Prozac, Atican, Trazodone per psych Hyperlipidemia 05/13/2015 Overview (02/04/2025): ASVCD risk is 1.2%, no indication for statin History of thyroidectomy 03/24/2015 Assessment & Plan [...] Encounters Date Type Department Care Team Description 07/14/2025 2:00 PM EST Office Visit [facility] [address] [place] [address] Neena Levy MD Cervical radiculopathy (Primary Dx) 07/14/2025 Travel 05/24/2025 Refill [facility] [address] [place] [address] Janee Olmos DO 04/17/2025 Telephone [facility] [address] [place] [phone] Tessa De La Vega RN Results 04/13/2025 11:45 AM EDT Office Visit [facility] [address] [place] [phone] Janee Olmos DO Rectal pain (Primary Dx); Acute pain of right knee 04/13/[address] [address] Janee Olmos DO Durable Medical Equipment (DME RX for [employer](L&C)) 04/13/2025 Travel from Last 3 Months Immunizations Immunization Administration Dates Next Due Influenza, Split (incl. [...] Q2 Not on file 12/11/2024 Comments No Intention Date Recorded No desire to become (finding) 0 12/19/2024 Sex and Gender Information Value Date Recorded [...] Mass Index 30.65 07/14/2025 2:05 PM EST Plan of Treatment Upcoming Encounters Date Type Department Care Team (Late st Contact Info) Description 07/22/2025 11:00 AM EST Office Visit [facility] [address], [place] [phone] Neena Levy MD [address] [place], [place] [phone] 09/02/2025 9:00 AM EST Office Visit [facility] [address], [place] [phone] Lawanda Styles MD [address], [place] [phone] Health Maintenance Due Date Last Done Comments CT Colonography 1978 Colonoscopy 1978 FIT DNA/Cologuard 1978 FIT 1978 FOBT 1978 Sigmoidoscopy 1978 Alcohol/Substance Use Screening 1990 Hepatitis B Vaccines (1 of 3 - 19+ 3-dose series) 1997 Pneumococcal Vaccine: Pediatrics (0 to 5 Years) and At-Risk Patients (6 to 49) Years (2 of 2 - PCV) 03/24/2016 03/24/2015 COVID-19 Vaccine ( season) 2025 08/10/2022, 11/10/2021, 02/03/2021, Additional history exists Influenza Vaccine (#1) 2025 06/04/2012 Pap Smear 08/21/2025 08/21/2022, 08/21/2022 SDOH Screening 12/11/2025 12/11/2024 Depression Screening 12/19/2025 12/19/2024, 12/20/19 25 Disability Screening 12/19/2025 12/19/2024 Colorectal Cancer Screening 12/22/2025 Postponed from 1978 (Other System Reasons) Family Planning (PISQ) 12/22/2025 12/22/2024 Tobacco Screening 07/14/2026 07/14/2025 Mammogram 01/02/2027 01/02/2025, 04/02/2024, 09/09/2022 Cervical Cancer Screening 08/21/2027 HPV/Cotest 08/21/2027 [...] Comments BI MAMMOGRAM SCREENING TOMOSYNTHESIS BILATERAL Routine 01/02/2025 10:16 AM EDT HEPATITIS C AB W/REFL TO HCV RNA, QN, PCR Routine 12/19/2024 11:16 AM EDT Routine screening for STI (sexually transmitted infection) HIV 1/2 ANTIGEN/ANTIBODY, FOURTH GENERATION W/RFL Routine 12/19/2024 11:16 AM EDT Routine screening for STI (sexually transmitted infection) LIPID PANEL, STANDARD Routine 12/19/2024 11:06 AM EDT Class 1 obesity without serious comorbidity with body mass index (BMI) of 33.0 to 33.9 in adult, unspecified obesity type IMAGE-GUIDED PAP W/AGE BASED SCR,W/CT/NG/TRICH Routine 08/21/2022 11:00 AM EST Cervical cancer screening PAP SMEAR Routine 08/21/2022 12:00 AM EST from Last 3 Months or Most Recently Relevant to Health Maintenance Results * BI Mammogram Screening Tomosynthesis Bilateral (01/02/2025 10:16 AM EDT) Anatomical Region Laterality Modality Breast Bilateral Mammography 01/02/2025 10:1 6 AM EDT Narrative 01/09/2025 4:03 PM EDT [facility] [place], [place] [address] Mammography Report Signed Patient: Izabela Jacobsen MR#: [id number] : 1980 Acct:[id number] Age/Sex: 44 / F ADM Date: 01/02/25 Loc: HO.MAMMO Attending Dr: Lawanda Styles MD Ordering Physician: Lawanda Styles Results: 1Negative Date of Service: 01/02/25 Follow Up: 1 Year From [facility] Procedure(s): MM tomosynthesis screening BI Accession Number(s): [id number] cc: Lawanda Styles EXAMINATION: MM SCREENING DIGITAL BREAST TOMOSYNTHESIS, BILATERAL CLINICAL INFORMATION: Screening. Asymptomatic. COMPARISON: Mammography: Comparison is made with available priors TECHNIQUE: Digital breast mammography with tomosynthesis is performed in both the craniocaudal and mediolateral oblique views along with computer-aided detection (CAD). FINDINGS: There are scattered areas of fibroglandular [...] target due date for their next mammogram. Electronically signed by: Kassandra Bashir DO 01/09/2025 04:01 PM EDT RP Dictated By: Kassandra Bashir DO Signed By: <Electronically signed by Kassandra Bashir DO in OV> 01/09/25 1601 DD/ 1016 TD/TT: 01/02/25 1030 [employer] Museum: Procedure Note Donotuseinterpreter, Image - 01/09/2025 [facility] [address] [place], [place] [address] Mammography Report Signed Patient: Izabela JacobsenMR#: [id number] : 1980Acct:[id number] Age/Sex: 44 / FADM Date: 01/02/25 Loc: .MAMMO Attending Dr: Lawanda Styles MD Ordering Physician: Dinora Stylesults: 1Negative Date of Service: 01/02/25Follow Up: 1 Year From [facility] Procedure(s): MM tomosynthesis screening BI Accession Number(s): [id number] cc: Lawanda Styles EXAMINATION: MM SCREENING DIGITAL BREAST TOMOSYNTHESIS, BILATERAL CLINICAL INFORMATION: Screening. Asymptomatic. COMPARISON: Mammography: Comparison is made with available priors TECHNIQUE: Digital breast mammography with tomosynthesis is performed in both the craniocaudal and mediolateral oblique views along with computer-aided detection (CAD). FINDINGS: There are scattered areas of fibroglandular [...] target due date for their next mammogram. Electronically signed by: Kassandra Bashir DO 01/09/2025 04:01 PM EDT RP Dictated By: Kassandra Bashir DO Signed By: <Electronically signed by Kassandra Bashir DO in OV> 01/09/25 1601 DD/ 1016 TD/TT: 01/02/25 1030 Security Chief Museum: Lawanda Styles MD IMG BI PROCEDURES Final Result * Hepatitis C Antibody with Reflex to HCV, RNA, Quantitative, Real-Time PCR (12/19/2024 11:16 AM EDT) Hepatitis C Antibody Nonreactive Nonreactive [facility] Comment:Antibodies to HCV no t detected; does not exclude early acuteHCV infection. Blood Venous blood specimen / Unknown 12/19/2024 11:16 AM EDT 12/19/2024 1:03 PM EDT Lawanda Styles MD LAB BLOOD ORDERABLES Final Res ult [facility] [address] [place] [phone] * HIV-1/2 Antigen and Antibodies, Fourth Generation, with Reflexes (12/19/2024 11:16 AM EDT) Pathologist [facility] HIV AB/AG Nonreactive Nonreactive [facility] Comment:HIV-1 p24 Ag and/or HIV-1/HIV-2 Ab not detected.A test result that is nonreactive does not exclude thepossibility of exposure to or infection with HIV-1 and/orHIV-2. Nonreactive results in this assay for individualswith prior exposure to HIV-1 and/or HIV-2 may be due toantigen and antibody levels that are below the limit ofdetection of this assay.The [employer] HIV Ag/Ab Combo assay result andsupplemental assay results should be interpreted inconjunction with the patient's clinical presentation,history and other laboratory results. If the results areinconsistent with clinical evidence, additional testing issuggested to confirm the result. Blood Venous blood specimen / Unknown 12/19/2024 11:16 AM EDT 12/19/2024 1:03 PM EDT us Lawanda Styles MD LAB BLOOD ORDERABLES Final Res ult Performing Organization Address [facility]/ZIP Co de Phone Number [facility] [address] [place] [phone] [phone] * (ABNORMAL) Lipid Panel, Standard (12/19/2024 11:06 AM EDT) Triglycerides 101 <150 mg/dL [facility] Comment:Desirable Triglyceri de: less than 150 mg/dLBorderline High Triglyceride 150-199 mg/dLHigh Triglyceride: 200-499 mg/dLVery High Triglyceride: greater than or equal to 5OO mg/dL Cholesterol 203(H) <200 mg/dL [facility] Comment:Desirable Cholestero l: less than 200 mg/dLBorderline High Cholesterol: 200-239 mg/dLHigh Cholesterol: greater than 239 mg/dL LDL Cholesterol Calculated 130(H) <100 mg/dL [facility] Comment:Desirable LDL: less than 100 mg/dLNear Optimal/Above Optimal LDL: 110- 129 mg/dLBorderline High LDL: 130-159 mg/dLHigh LDL: 160-189 mg/dLVery High LDL: greater than or equal to 190 mg/dL HDL Cholesterol 53 >40 mg/dL [facility] Comment:Desirable HDL: great er than 40 mg/dL Note: This HDL assay may give artificially low results in patients with liver disease. Blood Venous blood specimen / Unknown 12/19/2024 11:06 AM EDT 12/19/2024 1:03 PM EDT us Lawanda Styles MD LAB BLOOD ORDERABLES Final Res ult Performing Organization Address [facility]/ZIP Co de Phone Number [facility] [address] [place] [phone] [phone] * Image-Guided Pap with Age-Based Screening??with CT/NG,??Trichomonas (08/21/2022 11:00 AM EST) Comment [employer] Comment: This order for age-based cervical cancer and STI screening follows ACOG guidelines(PB 168, 140, ZSG193). See individual assays for performing site location. Clinical Information: None given [facility] LMP: NONE GIVEN [employer] [place] [place] [facility] Prev. PAP: NONE GIVEN [facility] Prev. BX: NONE GIVEN [facility] SOURCE: None given [employer] Statement Of Adequacy: [employer] Comment: Satisfactory for evaluation. Endocervical/transformation zone component present. Age and/or menstrual status not provided Interpretation/Re sult: Negative for intraepithelial lesion or malignancy. [employer] Infection Shift in vaginal wilfrid suggestive of bacterial vaginosis. [employer] COMMENT: This Pap test has been evaluated with computer assisted technology. [employer] Gluer And Slicer Hand: Sarta Comment: CMG, CT(ASCP) CT screening location: [place] [address] (Always Message) [facility] Comment: EXPLANATORY NOTE: The Pap is a [...] HPV nRNA E6/E7 Not Detected Not Detected [employer] Comment: Methodology: Senior Private Client Advisor-Mediated Amplification This assay detects E6/E7 viral messenger RNA (mRNA) from 14 high-risk HPV types (16,18,31,33,35,39,45,51,52,56,58,59,66,68). Cervical sources are required for HPV testing. If a vaginal source from a patient who has had a total hysterectomy with removal of cervix was submitted, please contact the testing laboratory for alternative testing options. For additional information, please refer to http://education.[employer]/faq/DXU300z6 (This link if provided for information/ educational purposes only.) Chlamydia trachomatis RNA, TMA, Urogenital NOT DETECTED NOT DETECTED [employer] Neisseria gonorrhoeae RNA, TMA, Urogenital NOT DETECTED NOT DETECTED [employer] Comment [employer] Comment: The analytical performance characteristics of this assay, when used to test SurePath(TM) specimens have been determined by [employer]. The modifications have not been cleared or approved by the FDA. This assay has been validated pursuant to the CLIA regulations and is used for clinical purposes. For additional information, please refer to https://[employer].Enlightened Lifestyle/faq/ERC938 (This link is being provided for information/ educational purposes only.) Trichomonas vaginalis, QL, TMA, PAP Vial NOT DETECTED NOT DETECTED [employer] Comment: The analytical performance characteristics of this assay have been determined by [employer]. The modifications have not been cleared or approved by the FDA. This assay has been validated pursuant to the CLIA regulations and is used for clinical purposes. For additional information, please refer to http://[employer] Lifestyle/ faq/Trichomonastma (This link is being provided for information/ educational purposes only.) 08/21/2022 11:0 0 AM EST 08/22/2022 8:31 AM EST Tracie Vela [facility] CYTOLOGY ORDERABLES F inal Result Performing Organization Address [facility] Co de Phone Number [facility] [address], [facility] [place] [phone] [employer] [place] [facility] [address] [facility], ([address]) [place] [address] * Pap Smear (08/21/2022 12:00 AM EST) Swab Tracie Vela [facility] CYTOLOGY ORDERABLES F inal Result Performing Organization Address [facility] Co de Phone Number [facility] [address], [facility] [place] [address] from Last 3 Months or Most Recently Relevant to Health Maintenance Insurance [facility] C3 Care Teams Process Safety Engineering Technologist Relationship Specialty Start Date End Date Lawanda Styles MD [address] [place] [phone] PCP - General Family Medicine 06/02/22
--- OUTSIDE RECORDS SUMMARY | 2025-07-14 16:35 | XMS_ITS | Encounter Summary ---
Author Organization [employer] Address [address] [facility] [address] 7t [place] [address] Care Team Providers Care Green Material Value Added Assessor Name Role Phone Lawanda Styles MD Primary Care Provider [phone] Encounter Details Date Type Department Care Team (Latest Contact Info) Description 07/14/2025 Travel Social History Tobacco Use Types Packs/Day [...] Description 07/22/2025 11:00 AM EST Office Visit [facility] [address] [place] [phone] Neena Levy MD [address] [place] [address] 09/02/2025 9:00 AM EST Office Visit [address] [address] Lawanda Styles MD [address] [place] [address] documented as of this encounter Visit Diagnoses Not on filedocumented in this encounter Additional Health Concerns Assessment Noted Time PHQ-9 Depression Total Score: 2 12/20/19 25 10:27 AM EDT documented as of this encounter Care Teams Green Material Value Added Assessor Relationship Specialty Start Date End Date Lawanda Styles MD [address] [place] [phone] PCP - General Family Medicine 06/02/22 documented as of this encounter
--- OUTSIDE RECORDS SUMMARY | 2025-07-14 16:35 | XMS_ITS | Encounter Summary ---
Author Organization [employer] Address [address] [facility] 7t [place] [address] Care Team Providers Care Linter Tender Name Role Phone Lawanda Styles MD Primary Care Provider [phone] Encounter Details Date Type Department Care Team ([facility] st Contact Info) Description 01/09/2025 Orders Only [facility] [address] [place], [place] [phone] Lawanda Styles MD [address] [place], [place] [phone] Class 1 obesity without serious comorbidity with body mass index (BMI) of 33.0 to 33.9 in adult, unspecified obesity type (Primary Dx) Social History Tobacco Use Types [...] Description 07/22/2025 11:00 AM EST Office Visit [facility] [address] [place] [address] Neena Levy MD [address] [place] [address] 09/02/2025 9:00 AM EST Office Visit [facility] [address] [place] [address] Lawanda Styles MD [address] [place] [phone] documented as of this encounter Visit Diagnoses Diagnosis Class 1 obesity without serious comorbidity with body mass index (BMI) of 33.0 to 33.9 in adult, unspecified obesity type- Primary documented in this encounter Additional Health Concerns Assessment Noted Time PHQ-9 Depression Total Score: 2 12/20/19 25 10:27 AM EDT documented as of this encounter Care Teams Linter Tender Relationship Specialty Start Date End Date Lawanda Styles MD [address] [place] [phone] PCP - General Family Medicine 06/02/22 documented as of this encounter
--- OUTSIDE RECORDS SUMMARY | 2025-07-14 16:35 | XMS_ITS | Encounter Summary ---
Author Organization [employer] Address [address] [place] [address] 7t [place] [address] Care Team Providers Care Digital Imaging Specialist Name Role Phone Lawanda Sytles MD Primary Care Provider [phone] Encounter Details Date Type Department Care Team (Late Contact Info) Description 08/24/2022 Orders Only [facility] [address] [place] [address] [phone] Mihir Tinsley, PharmJarrod ERRONEOUS ENCOUNTER--DISREGARD (Primary Dx) Social History Tobacco [...] Office Visit [facility] [address] [place] [address] Neena Levy MD [address] [place], [place] [phone] 09/02/2025 9:00 AM EST Office Visit [facility] [address] [facility] [place] [address] Lawanda Styles MD [address] [facility] [place] [address] documented as of this encounter Procedures Procedure Name Priority Date/Time Associated Diagnosis Comments TSH Routine 10/04/2022 10:40 AM EST ERRONEOUS ENCOUNTER--DISREGARD T4, FREE Routine 10/04/2022 10:40 AM EST ERRONEOUS ENCOUNTER--DISREGARD documented in this encounter Results * (ABNORMAL) TSH (10/04/2022 10:40 AM EST) Thyroid Stimulating Hormone 0.04(L) 0.32 - 4.0 uIU/mL [facility] Comment:TSH 3rd Generation ( [facility]) 10/04/2022 10:4 0 AM EST 10/04/2022 1:52 PM EST [facility] External Provider LAB BLO OD ORDERABLES Final Result Performing Organization Address City/[facility]/ZIP Co de Phone Number [facility] [address] [place] [phone] * T4, Free (10/04/2022 10:40 AM EST) Free T4 (Free Thyroxine) 1.71 0.71 - 1.85 ng/dL [facility] 10/04/2022 10:4 0 AM EST 10/04/2022 1:52 PM EST [facility] External Provider LAB BLO OD ORDERABLES Final Result Performing Organization Address [facility]/ZIP Co de Phone Number [facility] [address] [place] [phone] documented in this encounter Visit Diagnoses Diagnosis ERRONEOUS ENCOUNTER--DISREGARD- Primary documented in this encounter Care Teams Digital Imaging Specialist Relationship Specialty Start Date End Date Lawanda Styles MD [address] [place] [phone] PCP - General Family Medicine 06/02/22 documented as of this encounter
--- OUTSIDE RECORDS SUMMARY | 2025-07-14 16:35 | XMS_ITS | Clinical Summary ---
Author Organization [facility] ity Address [address] [place] [address] Care Team Providers Care Glass Pulverizer Equipment Operator Name Role Phone Unavailable Primary Care Provider [...] Last Done Comments Breast Cancer Screening 1980 Colorectal Cancer Screening: Colonoscopy 1978 Hepatitis B Vaccines (1 of 3 - 19+ 3-dose series) 1997 Cervical Cancer Screening: P ap Smear 11/16/1999 HIV Screening 08/06/2022 Hepatitis C Screening 08/06/2022 Social Influencers of Health Screening 08/06/2022 Depression Screening 09/03/2024 COVID-19 Vaccine ( - 2024-2 6 season) 2025 Influenza Vaccine (#1) 2025 DTaP,Tdap,and Td Vaccines (2 - Td or Tdap) 07/04/2032 07/04/2022 RSV Immunization Adult Patie nts (1 - 1-dose 75+ series) 2053 HIB Vaccines Aged Out No longer eligi [...]
--- OUTSIDE RECORDS SUMMARY | 2025-07-14 16:35 | XMS_ITS | Encounter Summary ---
Author Organization [employer] Address [address] [facility] [facility] [address] [place] [address] Care Team Providers Care Buckle Inspector Name Role Phone Lawanda Styles MD Primary Care Provider [phone] Reason for Visit * Reason Comments Med Refill Encounter Details Date Type Department Care Team (Late st Contact Info) Description 09/24/2023 Refill [facility] [address] [place] [address] [phone] Lawanda Styles MD [address] [place], [place] [phone] Acute pain of right knee Social History [...] Description 07/22/2025 11:00 AM EST Office Visit [facility] [address] [place] [phone] Neena Levy MD [address] [place] [phone] 09/02/2025 9:00 AM EST Office Visit [facility] [address] [place] [phone] Lawanda Styles MD [address] [place] [phone] documented as of this encounter Visit Diagnoses Diagnosis Acute pain of right knee documented in this encounter Additional Health Concerns Assessment Noted Time PHQ-9 Depression Total Score: 17 023 9:53 AM EDT documented as of this encounter Care Teams Buckle Inspector Relationship Specialty Start Date End Date Lawanda Styles MD [address] [place] [phone] PCP - General Family Medicine 06/02/22 documented as of this encounter
== END 2025-07-14 14:48 | disposition home or self-care (01) ==
LOC: HO.HHCX 14:47
PROVIDERS: PCP General Practice; Visit Provider Family Medicine
DX: Z13.89 Encounter for screening for other disorder (principal)

== ENCOUNTER 2025-07-16 12:15 | Outpatient (REF) | payer MEDICAID, SELFPAY ==
--- OUTSIDE RECORDS SUMMARY | 2025-07-14 14:00 | XMS_ITS | Encounter Summary ---
Author Organization [employer] Address [address] [facility] [address] [place] [address] Care Team Providers Care Pretzel Twisting Machine Operator Name Role Phone Lawanda Styles MD Primary Care Provider [phone] Reason for Referral * Consultation (Routine) - Closed Specialty Diagnoses / Procedures Referred By Contac t Referred To Contact Physical Therapy Diagnoses Cervical radiculopathy Neena Levy MD [address] [place] [address] Phone: tel: fax: [facility] Physical Therapy [place] [address] [address] [address] Phone: tel: fax: Referral ID Status Reason Start Date Expiration Date V isits Requested Visits Authorized [id number] Closed Specialty Services Required 07/15/2025 07/15/2026 20 20 Encounter Details Date Type Department Care Team (Latest Contact Info) Description 07/14/2025 2:00 PM EST Office Visit [facility] [address] [place] [address] [phone] Neena Levy MD [address] [place] [address] [phone] Cervical radiculopathy (Primary Dx) Social History Tobacco Use Types [...] Sign Reading Time Taken Comments Blood Pressure 132/74 07/14/2025 2:05 PM EST Pulse 71 07/14/2025 2:05 PM EST Temperature 36.3 C (97.4 F) 07/14/2025 2:05 PM EST Respiratory Rate 14 07/14/2025 2:05 PM EST Oxygen Saturation 100% 07/14/2025 2:05 PM EST Inhaled Oxygen Concentration - - Weight 96.9 kg (213 lb 9.6 oz) 07/14/2025 2:05 P M EST Height 177.8 cm (5' 10 ) 07/14/2025 2:05 PM EST Body Mass Index 30.65 07/14/2025 2:05 PM EST documented in this encounter Progress Notes * Neena Levy MD - 07/14/2025 2:00 PM EST Subjective Izabela Joni Packer, age 44 years Upper Back and Bilateral Hand Symptoms - Onset 3-4 days prior to visit, gradually worsening - Reports tightness in the whole upper back radiating to both hands - Describes numbness and swelling in fingers bilaterally, with sensation of fingers going numb - Symptoms worsen at night, interfering with sleep for the past 3 nights - Swelling and tightness in hands noted in the morning - Tingling and pulling sensation in arms, especially when stretching - No history of heavy lifting or increased physical activity prior to onset - Used topical diclofenac cream with mild improvement, but symptoms persist and worsen at night - Denies recent trauma or injury - Reports dizziness when stretching in the morning on the day of visit - Denies weakness, difficulty swallowing or LE symptoms. Objective Blood pressure 132/74, pulse 71, temperature 97.4 ??F (36.3 ??C), temperature source Temporal, resp. rate 14, height 5' 10 (1.778 m), weight 213 lb 9.6 oz (96.9 kg), last menstrual period 06/29/2025, SpO2 100%. Physical Exam Constitutional: Appearance: Normal appearance. Neck: Thyroid: No thyroid mass. Musculoskeletal: Cervical back: Full passive range of motion without pain and normal range of motion. No edema, rigidity, torticollis or crepitus. Muscular tenderness present. No spinous process tenderness. Lymphadenopathy: Cervical: No cervical adenopathy. Neurological: Mental Status: She is alert. Sensory: Sensation is intact. Motor: Motor function is intact. No weakness. Deep Tendon Reflexes: Reflexes are normal and symmetric. Reflex Scores: Tricep reflexes are 2+ on the right side and 2+ on the left side. Bicep reflexes are 2+ on the right side and 2+ on the left side. Patellar reflexes are 2+ on the right side and 2+ on the left side. Assessment & Plan Cervical radiculopathy - Cervical radiculopathy likely musculoskeletal - Trial of prednisone bursetn, cyclobenzaprine as a muscle relaxant, and ibuprofen for inflammation. Advised to take ibuprofen with food. -Referred to physical therapy for neck rehabilitation. -Ordered cervical spine X-ray. -Provided work note for time off on July 15, 2025, and recommended rest from work for a couple of days. -Scheduled follow-up appointment on July 22, 2025, to reassess symptoms and determine need for further studies. Instructed to contact physical therapy if not reached within a couple of days. -Advised to go to the emergency room if symptoms worsen, including increased numbness, weakness in hands, or progression of neurological deficits. - Risks and side effects: Discussed that prednisone may cause increased energy and elevated blood sugar. Advised that cyclobenzaprine may cause drowsiness and to avoid driving while taking it. Orders: XR CERVICAL SPINE 3V; Future ibuprofen 600 MG tablet; Take 1 tablet (600 mg) by mouth every 8 (eight) hours if needed for moderate pain or fever. cyclobenzaprine (Flexeril) 10 MG tablet; One tab po at bedtime prn pain of muscles, do not drive with medicaion predniSONE (Deltasone) 20 MG tablet; 2 tabs po daily for 5 days Referral to Physical Therapy; Future Addendum 07/16/25 3:02 PM IMPRESSION: Spondylosis, C5-6, moderate to severe. Probable status post thyroidectomy. -will offer ortho apt for pt see telephone call This note was drafted using Ambient (AI) technology. The patient/patient's guardian has been informed and has consented to the use of this technology: Yes documented in this encounter Plan of Treatment Upcoming Encounters Date Type Department Care Team (Late st Contact Info) Description 07/22/2025 11:00 AM EST Office Visit [facility] [address] [place] [phone] Neena Levy MD [address] [place] [address] 09/02/2025 9:00 AM EST Office Visit [facility] [address] [place], [place] [phone] Lawanda Styles MD [address] [place] [address] Scheduled Referrals Name Type Priority Associated Diagnoses Orde r Schedule Referral to Physical Therapy Outpatient Referral Routine Cervical radiculopathy Expected: 07/14/2025 (Approximate), Expires: 07/14/2026 documented as of this encounter Procedures Procedure Name Priority Date/Time Associated Diagnosis Comments XR CERVICAL SPINE 3V Routine 07/16/2025 12:31 PM EST Cervical radiculopathy documented in this encounter Results * XR CERVICAL SPINE 3V (07/16/2025 12:31 PM EST) Anatomical Region Laterality Modality Abdomen Radiographic Annabella ging 07/16/2025 12:3 1 PM EST Narrative 07/16/2025 1:47 PM EST [facility] [address] [place] [address] XRay Report Signed Patient: Izabela Jacobsen MR#: [id number] : 1980 Acct:[id number] Age/Sex: 44 / F ADM Date: 07/16/25 Loc: HO.XRAY Attending Dr: Neena Levy MD Ordering Physician: Neena Levy MD Date of Service: 07/16/25 Procedure(s): XR cervical spine 3V Accession Number(s): [id number] cc: Neena Levy MD; Lawanda Styles Reason for Exam: NECK PAIN WITH RADICULAROPATHY EXAMINATION: XR CERVICAL SPINE CLINICAL INFORMATION: NECK PAIN WITH RADICULAROPATHY COMPARISON: None available. TECHNIQUE: AP, lateral and atlantoodontoid views. FINDINGS: Craniocervical junction is intact. Syndesmophyte formation/marginal osteophyte formation with endplate sclerosis and decreased intervertebral disc height at C5-6. Loss of the physiologic lordosis. Vascular clips in both sides of the lower trachea. No acute cortical disruption or malalignment. No lytic or blastic lesions. XR/XR cervical spine 3V IMPRESSION: Spondylosis, C5-6, moderate to severe. Probable status post thyroidectomy. Electronically signed by: Art Awad MD 07/16/2025 01:44 PM EST RP Dictated By: Art Duran MD Signed By: <Electronically signed by Art Sadler MD in OV> 07/16/25 1344 DD/ 1231 TD/TT: 07/16/25 1235 Operational Meteorologist: Procedure Note Donotuseinterpreter, Image - 07/16/2025 [place] [address] XRay Report Signed Patient: Manfred Jacobsen#: [id number] : 1980Acct:[id number] Age/Sex: 44 / FADM Date: 07/16/25 Loc: HO.XRAY Attending Dr: Neena Levy MD Ordering Physician: Neena Levy MD Date of Service: 07/16/25 Procedure(s): XR cervical spine 3V Accession Number(s): [id number] cc: Neena Levy MD; Lawanda Styles Reason for Exam: NECK PAIN WITH RADICULAROPATHY EXAMINATION: XR CERVICAL SPINE CLINICAL INFORMATION: NECK PAIN WITH RADICULAROPATHY COMPARISON: None available. TECHNIQUE: AP, lateral and atlantoodontoid views. FINDINGS: Craniocervical junction is intact. Syndesmophyte formation/marginal osteophyte formation with endplate sclerosis and decreased intervertebral disc height at C5-6. Loss of the physiologic lordosis. Vascular clips in both sides of the lower trachea. No acute cortical disruption or malalignment. No lytic or blastic lesions. XR/XR cervical spine 3V IMPRESSION: Spondylosis, C5-6, moderate to severe. Probable status post thyroidectomy. Electronically signed by: Art Awad MD 07/16/2025 01:44 PM EST RP Dictated By: Art Duran MD Signed By: <Electronically signed by Art Sadler MDin OV> 07/16/25 1344 DD/ 1231 TD/TT: 07/16/25 1235 Operational Meteorologist: us Neena Levy MD IMG XR PROCEDURES Final Re sult documented in this encounter Visit Diagnoses Diagnosis Cervical radiculopathy- Primary Brachial neuritis or radiculitis nos documented in this encounter Additional Health Concerns Assessment Noted Time PHQ-9 Depression Total Score: 2 12/20/19 25 10:27 AM EDT documented as of this encounter Care Teams Pretzel Twisting Machine Operator Relationship Specialty Start Date End Date Lawanda Styles MD [address] [place] [phone] PCP - General Family Medicine 06/02/22 documented as of this encounter
--- NOTE | ~2025-07-16 | XR_ITS ---
EXAMINATION: XR CERVICAL SPINE CLINICAL INFORMATION: NECK PAIN WITH RADICULAROPATHY COMPARISON: None available. TECHNIQUE: AP, lateral and atlantoodontoid views. FINDINGS: Craniocervical junction is intact. Syndesmophyte formation/marginal osteophyte formation with endplate sclerosis and decreased intervertebral disc height at C5-6. Loss of the physiologic lordosis. Vascular clips in both sides of the lower trachea. No acute cortical disruption or malalignment. No lytic or blastic lesions. XR/XR cervical spine 3V IMPRESSION: Spondylosis, C5-6, moderate to severe. Probable status post thyroidectomy. Electronically signed by: Art Awad MD 07/16/2025 01:44 PM EST
--- OUTSIDE RECORDS SUMMARY | 2025-07-16 15:26 | XMS_ITS | Clinical Summary ---
Author Organization [employer] Address [address] [facility] 7t [place] [address] Care Team Providers Care Test Development Engineer Name Role Phone Lawanda Styles MD Primary Care Provider [phone] Allergies No known active allergies Medications busPIRone (Buspar) 10 MG tablet Take 1 tablet (10 mg) by mouth 2 times daily. 180 tablet 3 5 Active FLUoxetine (PROzac) 20 MG capsule Take 1 capsule (20 mg) by mouth Once per day. 90 capsule 3 5 Active Diclofenac Sodium 1 % gelIndications:[place] pain of right knee Apply 1 Application [...] up to date, has upcoming appointment at [place] [facility] screen to be referred, pt is [...] Encounters Date Type Department Care Team Description 07/16/2025 Results Follow-Up [facility] [address] [place] [phone] Neena Levy MD XR CERVICAL SPINE 3V 07/14/2025 2:00 PM EST Office Visit [facility] [address] [address] Neena Levy MD Cervical radiculopathy (Primary Dx) 07/14/2025 Travel 05/24/2025 Refill [facility] [address] [place] [phone] Janee Olmos, 04/17/2025 Telephone [facility] [address] [place] [address] Tessa De La Vega RN Results from Last 3 Months Immunizations Immunization Administration [...] Description 07/22/2025 11:00 AM EST Office Visit [facility] [address] [place] [address] Neena Levy MD 230 [place], [place] [phone] 09/02/2025 9:00 AM EST Office Visit [facility] [address] [place], [place] [phone] Lawanda Styles MD 230 [place], [place] [phone] Health Maintenance Due Date Last Done Comments CT Colonography 1978 FIT DNA/Cologuard 1978 FIT 1978 FOBT 1978 Sigmoidoscopy 1978 HIB Vaccines (1 of 1 - Risk 1-dose series) 02/16/1980 Meningococcal Vaccine (1 - Risk 2-dose series) 1980 Meningococcal B Vaccine (1 of 4 - Increased Risk) 1988 Alcohol/Substance Use Screening 1990 Hepatitis B Vaccines [...] 12/19/2024, 12/20/19 25 Disability Screening 12/19/2025 12/19/2024 Family Planning (PISQ) 12/22/2025 12/22/2024 Tobacco Screening 07/14/2026 07/14/2025 Mammogram 01/02/2027 01/02/2025, 12/03, 09/09/2022 Cervical Cancer Screening 08/21/2027 HPV/Cotest 08/21/2027 08/21/2022 Zoster Vaccines (1 of 2) 2028 Lipid Panel 12/19/2029 12/19/2024, 10/05/2023 DTaP/Tdap/Td Vaccines (3 - Td or Tdap) 07/04/2032 07/04/2022, 2012 Colonoscopy 05/01/2035 05/01/2025 Colorectal Cancer Screening 05/01/2035 RSV Patients and Patients Aged 60 years or older (1 - 1-dose 75+ series) 2053 HIV Screening Completed 12/19/2024, 10/2023, 08/21/2022 Hepatitis C Screening Completed 12/19/2024 , 10/05/2023, 08/21/2022 HPV Vaccines Aged Out No longer eligi [...] Routine 07/16/2025 12:31 PM EST Cervical radiculopathy BI MAMMOGRAM SCREENING TOMOSYNTHESIS BILATERAL Routine 01/02/2025 [...] Recently Relevant to Health Maintenance Results * XR CERVICAL SPINE 3V (07/16/2025 12:31 PM EST) Anatomical Region Laterality Modality Abdomen Radiographic Annabella ging 07/16/2025 12:3 1 PM EST Narrative 07/16/2025 1:47 PM EST [place] [address] XRay Report Signed Patient: Izabela Jacobsen MR#: [id number] : 1980 Acct:[id number] Age/Sex: 44 / F ADM Date: 07/16/25 Loc: HO.XRAY Attending Dr: Neena Levy MD Ordering Physician: Neena Levy MD Date of Service: 07/16/25 Procedure(s): XR cervical spine 3V Accession Number(s): [id number] cc: Neena Levy MD; Lawanda Styles Reason [...] Art Awad MD 07/16/2025 01:44 PM EST Dictated By: Art Duran MD Signed By: <Electronically signed by Art Sadler MD in OV> 07/16/25 1344 DD/ 1231 TD/TT: 07/16/25 1235 Senior Game Developer: Procedure Note Donotuseinterpreter, Image - 07/16/[address] [address] XRay Report Signed Patient: Izabela JacobsenMR#: [id number] : 1980Acct:[id number] Age/Sex: 44 / FADM Date: 07/16/25 Loc: HO.GRACIELAAY Attending Dr: Neena Levy MD Ordering Physician: Neena Levy MD Date of Service: 07/16/25 Procedure(s): XR cervical spine 3V Accession Number(s): [id number] cc: Neena Levy MD; Lawanda Styles Reason [...] by: Art Awad MD 07/16/2025 01:44 PM [facility] Dictated By: Art Duran MD Signed By: <Electronically signed by Art Sadler MDin OV> 07/16/25 1344 DD/ 1231 TD/TT: 07/16/25 1235 Senior Game Developer: Neena Levy MD IMG XR PROCEDURES Final Re sult * BI Mammogram Screening Tomosynthesis Bilateral (01/02/2025 10:16 AM EDT) Anatomical Region Laterality Modality Breast Bilateral Mammography 01/02/2025 10:1 6 AM EDT Narrative 01/09/2025 4:03 PM EDT [address] [place] [address] Mammography Report Signed Patient: Izabela Jacobsen MR#: [id number] : 1980 Acct:[id number] Age/Sex: 44 / F ADM Date: 01/02/25 Loc: HO.MAMMO Attending Dr: Lawanda Styles MD Ordering Physician: Lawanda Styles Results: 1Negative Date of Service: 01/02/25 Follow Up: 1 Year From Orig ina Mammogram Procedure(s): MM tomosynthesis screening BI Accession Number(s): [id number] cc: Lawanda Styles EXAMINATION: MM SCREENING DIGITAL [...] Kassandra Bashir DO 01/09/2025 04:01 PM EDT Dictated By: Kassandra Bashir DO Signed By: <Electronically signed by Kassandra Bashir DO in OV> 01/09/25 1601 DD/ 1016 TD/TT: 01/02/25 1030 Senior Game Developer: Procedure Note Donotuseinterpreter, Image - 01/09/[address] [place] [address] Mammography Report Signed Patient: Izabela JacobsenMR#: [id number] : 1980Acct:[id number] Age/Sex: 44 / FADM Date: 01/02/25 Loc: HO.MAMMO Attending Dr: Lawanda Styles MD Ordering Physician: Dinora Stylesults: 1Negative Date of Service: 01/02/25Follow Up: 1 Year From Orig ina Mammogram Procedure(s): MM tomosynthesis screening BI Accession Number(s): [id number] cc: Lawanda tSyles EXAMINATION: MM SCREENING DIGITAL BREAST TOMOSYNTHESIS, BILATERAL [...] Kassandra Bashir DO 01/09/2025 04:01 PM EDT Dictated By: Kassandra Bashir DO Signed By: <Electronically signed by Kassandra Bashir DO in OV> 01/09/25 1601 DD/ 1016 TD/TT: 01/02/25 1030 Senior Game Developer: Lawanda Styles MD [facility] BI PROCEDURES Final Result * Hepatitis C Antibody with Reflex to HCV, RNA, Quantitative, Real-Time PCR (12/19/2024 11:16 AM EDT) Hepatitis C Antibody Nonreactive Nonreactive [facility] Comment:Antibodies to HCV no t detected; does not exclude early acuteHCV infection. Blood Venous blood specimen / Unknown 12/19/2024 11:16 AM EDT 12/19/2024 1:03 PM EDT Lawanda Styles MD LAB BLOOD ORDERABLES Final Res ult Performing Organization Address [facility]/ZIP Co de Phone Number [facility] [address] [place] [address] [phone] * HIV-1/2 Antigen and Antibodies, Fourth Generation, with Reflexes (12/19/2024 11:16 AM EDT) HIV AB/AG Nonreactive Nonreactive [facility] Comment:HIV-1 p24 Ag and/or HIV-1/HIV-2 Ab not detected.A test result that is nonreactive does not exclude thepossibility of exposure to or infection with HIV-1 and/orHIV-2. Nonreactive results in this assay for individualswith prior exposure to HIV-1 and/or HIV-2 may be due toantigen and antibody levels that are below the limit ofdetection of this assay.The [employer] HIV Ag/Ab Combo assay result andsupplemental assay results should be interpreted inconjunction with the patient's clinical presentation,history and other laboratory results. If the results areinconsistent with clinical evidence, additional testing issuggested to confirm the result. Blood Venous blood specimen / Unknown 12/19/2024 11:16 AM EDT 12/19/2024 1:03 PM EDT Lawanda Styles MD LAB BLOOD ORDERABLES Final Res ult Performing Organization Address [facility]/ZIP Co de Phone Number [facility] [address] [place] [address] [phone] * (ABNORMAL) Lipid Panel, Standard (12/19/2024 11:06 AM EDT) Triglycerides 101 <150 mg/dL [facility] Comment:Desirable Triglyceri de: less than 150 mg/dLBorderline High Triglyceride 150-199 mg/dLHigh Triglyceride: 200-499 mg/dLVery High Triglyceride: greater than or equal to 5OO mg/dL Cholesterol 203(H) <200 mg/dL [facility] Comment:Desirable Cholestero l: less than 200 mg/dLBorderline High Cholesterol: 200-239 mg/dLHigh Cholesterol: greater than 239 mg/dL LDL Cholesterol Calculated 130(H) <100 mg/dL [facility] Comment:Desirable LDL: less than 100 mg/dLNear Optimal/Above Optimal LDL: 110- 129 mg/dLBorderline High LDL: 130-159 mg/dLHigh LDL: 160-189 mg/dLVery High LDL: greater than or equal to 190 mg/dL HDL Cholesterol 53 >40 mg/dL [facility] Comment:Desirable HDL: great er than 40 mg/dL Note: This HDL assay may give artificially low results in patients with liver disease. Blood Venous blood specimen / Unknown 12/19/2024 11:06 AM EDT 12/19/2024 1:03 PM EDT us Lawanda Styles MD LAB BLOOD ORDERABLES Final Res ult [facility] [address] [place] [address] [phone] * Image-Guided Pap with Age-Based Screening??with CT/NG,??Trichomonas (08/21/2022 11:00 AM EST) Comment [facility] Comment: This order for age-based cervical cancer and STI screening follows ACOG guidelines(PB 168, 140, DYO659). See individual assays for performing site location. Clinical Information: None given [facility] LMP: NONE GIVEN [facility] Prev. PAP: NONE GIVEN [facility] Prev. BX: NONE GIVEN [facility] SOURCE: None given [facility] Statement Of Adequacy: [facility] Comment: Satisfactory for evaluation. Endocervical/transformation zone component present. Age and/or menstrual status not provided Interpretation/Re sult: Negative for intraepithelial lesion or malignancy. [facility] Infection Shift in vaginal wilfrid suggestive of bacterial vaginosis. [facility] COMMENT: This Pap test has been evaluated with computer assisted technology. [facility] [employer] Travel Counselor: Barbara aquino [facility] Comment: CMG, CT(ASCP) CT screening location: [place] [address] (Always Message) [facility] Comment: EXPLANATORY NOTE: The Pap is a [...] HPV nRNA E6/E7 Not Detected Not Detected [facility] Comment: Methodology: Machinist Brake-Mediated Amplification This assay detects E6/E7 viral messenger RNA (mRNA) from 14 high-risk HPV types (16,18,31,33,35,39,45,51,52,56,58,59,66,68). Cervical sources are required for HPV testing. If a vaginal source from a patient who has had a total hysterectomy with removal of cervix was submitted, please contact the testing laboratory for alternative testing options. For additional information, please refer to http://[facility]/faq/YUY669s4 (This link if provided for information/ educational purposes only.) Chlamydia trachomatis RNA, TMA, Urogenital NOT DETECTED NOT DETECTED [facility] Neisseria gonorrhoeae RNA, TMA, Urogenital NOT DETECTED NOT DETECTED [facility] Comment [facility] Comment: The analytical performance characteristics of this assay, when used to test SurePath(TM) specimens have been determined by [facility]. The modifications have not been cleared or approved by the FDA. This assay has been validated pursuant to the CLIA regulations and is used for clinical purposes. For additional information, please refer to https://[facility]/faq/WXD056 (This link is being provided for information/ educational purposes only.) Trichomonas vaginalis, QL, TMA, PAP Vial NOT DETECTED NOT DETECTED [facility] Comment: The analytical performance characteristics of this assay have been determined by [facility]. The modifications have not been cleared or approved by the FDA. This assay has been validated pursuant to the CLIA regulations and is used for clinical purposes. For additional information, please refer to http://[employer]/ faq/Trichomonastma (This link is being provided for information/ educational purposes only.) 08/21/2022 11:0 0 AM EST 08/22/2022 8:31 AM EST [facility] LAB CYTOLOGY ORDERABLES F inal Result Performing Organization Address [facility] de Phone Number [facility] [address] [place] [address], [facility] [place] [place] [phone] [facility] [address] [facility], (Nl2) [place] [address] * Pap Smear (08/21/2022 12:00 AM EST) Swab [facility] CYTOLOGY ORDERABLES F inal Result Performing Organization Address [facility] de Phone Number [employer] [address] [place] [address], [facility] [place] [place] [address] from Last 3 Months or Most Recently Relevant to Health Maintenance [place] [address] [address] [address] C3 Care Teams Test Development Engineer Relationship Specialty Start Date End Date Lawanda Styles MD [address] [place] [phone] PCP - General Family Medicine 06/02/22
--- OUTSIDE RECORDS SUMMARY | 2025-07-16 15:26 | XMS_ITS | Encounter Summary ---
Author Organization [employer] Address [address] [facility] 7t [place] [address] Care Team Providers Care Continuum Of Care Manager Name Role Phone Lawanda Styles MD Primary Care Provider [phone] Encounter Details Date Type Department Care Team ([facility] st Contact Info) Description 07/16/2025 Results Follow-Up [facility] [address] [place] [address] [phone] Neena Levy MD [address] [place], [place] [phone] XR CERVICAL SPINE 3V Social History Tobacco Use Types Packs/Day Years [...] Description 07/22/2025 11:00 AM EST Office Visit [facility] [address] [place] [address] Neena Levy MD [address] [place] [address] 09/02/2025 9:00 AM EST Office Visit [address] [address] Lawanda Styles MD [address] [place] [address] documented as of this encounter Visit Diagnoses Not on filedocumented in this encounter Additional Health Concerns Assessment Noted Time PHQ-9 Depression Total Score: 2 12/20/19 25 10:27 AM EDT documented as of this encounter Care Teams Continuum Of Care Manager Relationship Specialty Start Date End Date Lawanda Styles MD [address] [place] [phone] PCP - General Family Medicine 06/02/22 documented as of this encounter
--- OUTSIDE RECORDS SUMMARY | 2025-07-16 15:26 | XMS_ITS | Encounter Summary ---
Author Organization [employer] Address [address] [facility] [facility] [address] 7[address] [place] [address] Care Team Providers Care Microsoft Application Developer Name Role Phone Lawanda Styles MD Primary Care Provider [phone] Encounter Details Date Type Department Care Team [...] Description 07/22/2025 11:00 AM EST Office Visit [facility] [address] [place] [address] Neena Levy MD [address] [place] [address] 09/02/2025 9:00 AM EST Office Visit [address] [address] Lawanda Styles MD [address] [place] [address] documented as of this encounter Visit Diagnoses Not on filedocumented in this encounter Additional Health Concerns Assessment Noted Time PHQ-9 Depression Total Score: 2 12/20/19 25 10:27 AM EDT documented as of this encounter Care Teams Microsoft Application Developer Relationship Specialty Start Date End Date Lawanda Styles MD [address] [place] [phone] PCP - General Family Medicine 06/02/22 documented as of this encounter
--- OUTSIDE RECORDS SUMMARY | 2025-07-16 15:26 | XMS_ITS | Encounter Summary ---
Author Organization [employer] Address [address] [place] [address] 7t [place] [address] Care Team Providers Care Pearl Fisherman Name Role Phone Lawanda Styles MD Primary Care Provider [phone] Encounter Details Date Type Department Care Team (Late Contact Info) Description 09/13/2022 Abstract [facility] MEDICINE [address] [place] [address] [phone] Radha Suarez RN [address] [place] [address] [phone] Social History Tobacco Use Types Packs/Day Years [...] Description 07/22/2025 11:00 AM EST Office Visit [facility] MEDICINE [address] [place] [address] [phone] Neena Levy MD 230 [place], [place] [phone] 09/02/2025 9:00 AM EST Office Visit [facility] [address] [facility] [place] [phone] Lawanda Styles MD [address] [facility] [facility] [place], [place] [phone] documented as of this encounter Procedures Procedure Name Priority Date/Time Associated Diagnosis Comments MAMMOGRAPHY Routine 09/09/2022 documented in this encounter Results * Mammography (09/09/2022) Mammogram Birads 1: Negative Recommendation- Annual mammography screening Comment:BIRADS 1:Negative Anatomical Region Laterality Modality Other Historical Provider HEALTH MAINTENANCE Final Result documented in this encounter Visit Diagnoses Not on filedocumented in this encounter Care Teams Pearl Fisherman Relationship Specialty Start Date End Date Lawanda Styles MD [address] [facility] [facility] [place], [place] [phone] PCP - General Family Medicine 06/02/22 documented as of this encounter
--- OUTSIDE RECORDS SUMMARY | 2025-07-16 15:26 | XMS_ITS | Encounter Summary ---
Author Organization [employer] Address [address] [place] [address] 7t [place] [address] Care Team Providers Care Prosecuting Attorney Name Role Phone Lawanda Styles MD Primary Care Provider [phone] Encounter Details Date Type Department Care Team (Late Contact Info) Description 08/24/2022 Orders Only [facility] [address] [place] [address] [phone] Mihir Tinsley, PharmJarrod ERRONEOUS ENCOUNTER--DISREGARD (Primary Dx) [...] Description 07/22/2025 11:00 AM EST Office Visit [facility] [address] [place] [phone] Neena Levy MD 230 [place], [place] [phone] 09/02/2025 9:00 AM EST Office Visit [facility] [address] [facility] [place] [address] Lawanda Styles MD [address] [facility] [place] [address] documented as of this encounter Procedures Procedure Name Priority Date/Time Associated Diagnosis Comments TSH Routine 10/04/2022 10:40 AM EST ERRONEOUS ENCOUNTER--DISREGARD T4, FREE Routine 10/04/2022 10:40 AM EST ERRONEOUS ENCOUNTER--DISREGARD documented in this encounter Results * (ABNORMAL) TSH (10/04/2022 10:40 AM EST) Thyroid Stimulating Hormone 0.04(L) 0.32 - 4.0 uIU/mL [facility] Comment:TSH 3rd Generation ( [facility]) 10/04/2022 10:4 0 AM EST 10/04/2022 1:52 PM EST [facility] External Provider LAB BLO OD ORDERABLES Final Result Performing Organization Address City/[facility]/ZIP Co de Phone Number [facility] [address] [place] [phone] * T4, Free (10/04/2022 10:40 AM EST) Free T4 (Free Thyroxine) 1.71 0.71 - 1.85 ng/dL [facility] 10/04/2022 10:4 0 AM EST 10/04/2022 1:52 PM EST [facility] External Provider LAB BLO OD ORDERABLES Final Result Performing Organization Address [facility]/ZIP Co de Phone Number [facility] [address] [place] [phone] documented in this encounter Visit Diagnoses Diagnosis ERRONEOUS ENCOUNTER--DISREGARD- Primary documented in this encounter Care Teams Prosecuting Attorney Relationship Specialty Start Date End Date Lawanda Styles MD [address] [place] [phone] PCP - General Family Medicine 06/02/22 documented as of this encounter
--- OUTSIDE RECORDS SUMMARY | 2025-07-16 15:26 | XMS_ITS | Clinical Summary ---
Author Organization [facility] Address [address] [place] [address] Care Team Providers Care Living Nurse Name Role Phone Unavailable Primary Care Provider [...]
--- OUTSIDE RECORDS SUMMARY | 2025-07-16 15:26 | XMS_ITS | Encounter Summary ---
Author Organization [employer] Address [address] [facility] 7t [place] [address] Care Team Providers Care Cook Vegetable Name Role Phone Lawanda Styles MD Primary Care Provider [phone] Encounter Details Date Type Department Care Team ([facility] st Contact Info) Description 01/09/[address] [facility] [address] [place], [place] [phone] Lawanda Styles MD 230 [place], [place] [phone] Class 1 obesity without serious comorbidity with [...] Description 07/22/2025 11:00 AM EST Office Visit [facility] [address] [place] [address] Neena Levy MD [address] [place] [phone] 09/02/2025 9:00 AM EST Office Visit [facility] [address] [place] [address] Lawanda Styles MD [address] [place] [phone] documented as of this encounter Visit Diagnoses Diagnosis Class 1 obesity without serious comorbidity with body mass index (BMI) of 33.0 to 33.9 in adult, unspecified obesity type- Primary documented in this encounter Additional Health Concerns Assessment Noted Time PHQ-9 Depression Total Score: 2 12/20/19 25 10:27 AM EDT documented as of this encounter Care Teams Cook Vegetable Relationship Specialty Start Date End Date Lawanda Styles MD [address] [place] [phone] PCP - General Family Medicine 06/02/22 documented as of this encounter
--- OUTSIDE RECORDS SUMMARY | 2025-07-16 15:26 | XMS_ITS | Encounter Summary ---
Author Organization [employer] Address [address] [facility] [address] 7[address] [place] [address] Care Team Providers Care Paper Coating Supervisor Name Role Phone Lawanda Styles MD Primary Care Provider [phone] Reason for Visit * Reason Comments Med Refill Encounter Details Date Type Department Care Team (Late st Contact Info) Description 09/24/2023 Refill [facility] [address] [place] [address] [phone] Lawanda Styles MD 230 [place], [place] [phone] Acute pain of right knee Social History [...] Description 07/22/2025 11:00 AM EST Office Visit [facility] [address] [place] [phone] Neena Levy MD [address] [place] [address] 09/02/2025 9:00 AM EST Office Visit [facility] [address] [place] [phone] Lawanda Styles MD [address] [place] [address] documented as of this encounter Visit Diagnoses Diagnosis Acute pain of right knee documented in this encounter Additional Health Concerns Assessment Noted Time PHQ-9 Depression Total Score: 17 023 9:53 AM EDT documented as of this encounter Care Teams Paper Coating Supervisor Relationship Specialty Start Date End Date Lawanda Styles MD [address] [place] [phone] PCP - General Family Medicine 06/02/22 documented as of this encounter
== END 2025-07-16 12:16 | disposition home or self-care (01) ==
LOC: HO.XRAY 12:15
PROVIDERS: PCP General Practice; Visit Provider Family Medicine
DX: M54.12 Radiculopathy, cervical region (principal)
CPT/HCPCS: 72040

== ENCOUNTER → 2025-07-16 12:20 | Outpatient (BNV) | payer MEDICAID, SELFPAY | PROVIDERS: PCP General Practice; Visit Provider Radiology Diagnostic Radiology | DX: M47.22 Other spondylosis with radiculopathy, cervical region (principal) | CPT/HCPCS: 72040 ==

== ENCOUNTER 2025-08-11 08:05 | Outpatient (REF) | payer MEDICAID, SELFPAY ==
--- NOTE | 2025-08-11 08:10 | EMG_ITS ---
Chief complaint: Cervical radiculopathy Referred by:?Neena Levy MD Procedure done: Bilateral upper extremities NCS/EMG Bilateral median and ulnar motor studies were performed. Bilateral median and ulnar mixed sensory and radial sensory studies were performed and paraspinal muscles were tested with a needle. Findings: Bilateral median motor distal latencies were moderately prolonged. Similar pattern was noted with median mixed sensory distal latencies were conduction velocity was moderately slow. Impression: [id number] bilateral median neuropathy across carpal tunnel [place] [address] 2 extremities [facility]
--- OUTSIDE RECORDS SUMMARY | 2025-08-11 08:30 | XMS_ITS | Clinical Summary ---
Author Organization [employer] Address [address] [facility] 7t [place] [address] Care Team Providers Care Community Organizer Name Role Phone Lawanda Styles MD Primary Care Provider [phone] Allergies No known active allergies Medications busPIRone (Buspar) 10 MG tablet Take 1 tablet (10 mg) by mouth 2 times daily. 180 tablet 3 5 Active FLUoxetine (PROzac) 20 MG capsule Take 1 capsule (20 mg) by mouth Once per day. 90 capsule 3 5 Active Diclofenac Sodium 1 % gelIndications:Ac germán pain of right knee Apply 1 Application [...] up to date, has upcoming appointment at [facility] screen to be referred, pt is [...] Encounters Date Type Department Care Team Description 07/22/2025 11:00 AM EST Office Visit [facility] MEDICINE [address] [place] [address] Neena Levy MD Cervical radiculopathy (Primary Dx) 07/22/2025 Travel 07/21/[address] [address] Neena Levy MD chart prep 07/20/[address] [address] Neena Levy MD 07/16/2025 Results Follow-Up [facility] [address] [place] [address] Neena Levy MD XR CERVICAL SPINE 3V 07/14/2025 2:00 PM EST Office Visit [facility] [address] [place] [address] Neena Levy MD Cervical radiculopathy (Primary Dx) 07/14/2025 Travel 05/24/2025 Refill [facility] MEDICINE [address] [place] [address] Janee Olmos DO from Last 3 Months Immunizations Immunization Administration [...] Sign Reading Time Taken Comments Blood Pressure 122/74 07/22/2025 10:49 AM EST Pulse 76 07/22/2025 10:49 AM EST Temperature 37.2 C (98.9 F) 07/22/2025 10:49 AM EST Respiratory Rate 20 07/22/2025 10:49 AM EST Oxygen Saturation 98% 07/22/2025 10:49 AM EST Inhaled Oxygen Concentration - - Weight 96.8 kg (213 lb 6.4 oz) 07/22/2025 10:49 AM EST Height 177.8 cm (5' 10 ) 07/14/2025 2:05 PM EST Body Mass Index 30.62 07/14/2025 2:05 PM EST Plan of Treatment Upcoming Encounters Date Type Department Care Team (Late st Contact Info) Description 09/02/2025 9:00 AM EST Office Visit [facility] MEDICINE [address] [place] [address] Lawanda Styles MD [address] [place] [address] Health Maintenance Due Date Last Done Comments CT Colonography 1978 FIT DNA/Cologuard 1978 FIT 1978 FOBT 1978 Sigmoidoscopy 1978 HIB Vaccines (1 of 1 - Risk 1-dose series) 02/16/1980 Meningococcal Vaccine (1 - Risk 2-dose series) 1980 Meningococcal B Vaccine (1 of 4 - Increased Risk) 1988 Hepatitis B Vaccines (1 of 3 - [...] 12/19/2025 12/19/2024 Family Planning (PISQ) 12/22/2025 12/22/2024 Alcohol/Substance Use Screening 07/22/2026 07/22/2025 Tobacco Screening 07/22/2026 07/22/2025 Mammogram 01/02/2027 01/02/2025, 04/2 02/2024, 09/09/2022 Cervical Cancer Screening 08/21/2027 HPV/Cotest 08/21/2027 [...] PM EST Narrative 07/16/2025 1:47 PM EST [place] [address] XRay Report Signed Patient: Izabela Jacobsen MR#: [id number] : 1980 Acct:[id number] Age/Sex: 44 / F ADM Date: 07/16/25 Loc: HO.XRAY Attending Dr: Neena Levy MD Ordering Physician: Neena Levy MD Date of Service: 07/16/25 Procedure(s): XR cervical spine 3V Accession Number(s): [id number] cc: Neena Levy MD; Lawanda Styles Reason [...] 07/16/25 1344 DD/ 1231 TD/TT: 07/16/25 1235 Boat Hop: Procedure Note Donotuseinterpreter, Image - 07/16/[address] [address] XRay Report Signed Patient: Izabela JacobsenMR#: [id number] : 1980Acct:[id number] Age/Sex: 44 / FADM Date: 07/16/25 Loc: HO.XRAY Attending Dr: Neena Levy MD Ordering Physician: Neena Levy MD Date of Service: 07/16/25 Procedure(s): XR cervical spine 3V Accession Number(s): [id number] cc: Neena Levy MD; Lawanda Styles Reason [...] MDin OV> 07/16/25 1344 DD/ 1231 TD/TT: 07/16/251234 Boat Hop: Neena Levy MD IMG XR PROCEDURES Final Re sult * BI Mammogram Screening Tomosynthesis Bilateral (01/02/2025 10:16 AM EDT) Anatomical Region Laterality Modality Breast Bilateral Mammography 01/02/2025 10:1 6 AM EDT Narrative 01/09/2025 4:03 PM EDT [address] [place] [address] Mammography Report Signed Patient: Izabela Jacobsen MR#: [id number] : 1980 Acct:[id number] Age/Sex: 44 / F ADM Date: 01/02/25 Loc: HO.MAMMO Attending Dr: Lawanda Styles MD Ordering Physician: Lawanda Styles Results: 1Negative Date of Service: 01/02/25 Follow Up: 1 Year From Orig inal Mammogram Procedure(s): MM tomosynthesis screening BI Accession Number(s): [id number] cc: Lawanda Styles EXAMINATION: MM SCREENING DIGITAL [...] 01/09/25 1601 DD/ 1016 TD/TT: 01/02/25 1030 Boat Hop: Procedure Note Donotuseinterpreter, Image - 01/09/[address] [place], [place] [address] Mammography Report Signed Patient: Izabela JacobsenMR#: [id number] : 1980Acct:[id number] Age/Sex: 44 / FADM Date: 01/02/25 Loc: HO.MAMMO Attending Dr: Lawanda Styles MD Ordering Physician: Dinora Stylesults: 1Negative Date of Service: 01/02/25Follow Up: 1 Year From Orig ina Mammogram Procedure(s): MM tomosynthesis screening BI Accession Number(s): [id number] cc: Lawanda Styles EXAMINATION: MM SCREENING DIGITAL [...] 01/09/25 1601 DD/ 1016 TD/TT: 01/02/25 1030 Boat Hop: Lawanda Styles MD IM BI PROCEDURES Final Result * Hepatitis C Antibody with Reflex to HCV, RNA, Quantitative, Real-Time PCR (12/19/2024 11:16 AM EDT) Hepatitis C Antibody Nonreactive Nonreactive [facility] Comment:Antibodies to HCV no t detected; does not exclude early acuteHCV infection. Blood Venous blood specimen / Unknown 12/19/2024 11:16 AM EDT 12/19/2024 1:03 PM EDT Lawanda Styles MD LAB BLOOD ORDERABLES Final Res ult Performing Organization Address City/[facility]/ZIP Co de Phone Number [facility] [address] [place] [address] [phone] * HIV-1/2 Antigen and Antibodies, Fourth Generation, with Reflexes (12/19/2024 11:16 AM EDT) HIV AB/AG Nonreactive Nonreactive [facility] Comment:HIV-1 p24 Ag and/or HIV-1/HIV-2 Ab not detected.A test result that is nonreactive does not exclude thepossibility of exposure to or infection with HIV-1 and/orHIV-2. Nonreactive results in this assay for individualswith prior exposure to HIV-1 and/or HIV-2 may be due toantigen and antibody levels that are below the limit ofdetection of this assay.The [employer] HIV Ag/Ab Combo assay result andsupplemental assay results should be interpreted inconjunction with the patient's clinical presentation,history and other laboratory results. If the results areinconsistent with clinical evidence, additional testing issuggested to confirm the result. Blood Venous blood specimen / Unknown 12/19/2024 11:16 AM EDT 12/19/2024 1:03 PM EDT Lawanda Styles MD LAB BLOOD ORDERABLES Final Res ult Performing Organization Address City/[facility]/ZIP Co de Phone Number [facility] [address] [place] [address] [phone] * (ABNORMAL) Lipid Panel, Standard (12/19/2024 11:06 AM EDT) Triglycerides 101 <150 mg/dL [facility] Comment:Desirable Triglyceri de: less than 150 mg/dLBorderline High Triglyceride 150-199 mg/dLHigh Triglyceride: 200-499 mg/dLVery High Triglyceride: greater than or equal to 5OO mg/dL Cholesterol 203(H) <200 mg/dL [facility] Comment:Desirable Cholestero l: less than 200 mg/dLBorderline High Cholesterol: 200-239 mg/dLHigh Cholesterol: greater than 239 mg/dL LDL Cholesterol Calculated 130(H) <100 mg/dL [facility] Comment:Desirable LDL: less than 100 mg/dLNear Optimal/Above Optimal LDL: 110- 129 mg/dLBorderline High LDL: 130-159 mg/dLHigh LDL: 160-189 mg/dLVery High LDL: greater than or equal to 190 mg/dL HDL Cholesterol 53 >40 mg/dL [facility] Comment:Desirable HDL: great er than 40 mg/dL Note: This HDL assay may give artificially low results in patients with liver disease. Blood Venous blood specimen / Unknown 12/19/2024 11:06 AM EDT 12/19/2024 1:03 PM EDT us Lawanda Styles MD LAB BLOOD ORDERABLES Final Res ult [facility] [address] [place] [address] [phone] * Image-Guided Pap with Age-Based Screening??with CT/NG,??Trichomonas (08/21/2022 11:00 AM EST) Comment [employer] Comment: This order for age-based cervical cancer and STI screening follows ACOG guidelines(PB 168, 140, PHD828). See individual assays for performing site location. Clinical Information: None given [facility] LMP: NONE GIVEN [facility] [employer] Prev. PAP: NONE GIVEN [facility] [place] [employer] Prev. BX: NONE GIVEN [facility] [employer] [employer] [employer] SOURCE: None given [facility] Statement Of Adequacy: [employer] Comment: Satisfactory for evaluation. Endocervical/transformation zone component present. Age and/or menstrual status not provided Interpretation/Re sult: Negative for intraepithelial lesion or malignancy. [employer] [place] [employer] Infection Shift in vaginal wilfrid suggestive of bacterial vaginosis. [employer] [place] [employer] Comment: This Pap test has been evaluated with computer assisted technology. [employer] [place] [employer] Consulting Technical Manager: Barbara aquino [employer] [place] [employer] Comment: CMG, CT(ASCP) CT screening location: [place] [address] (Always Message) [facility] [employer] [place] [employer] Comment: EXPLANATORY NOTE: The Pap is a [...] HPV nRNA E6/E7 Not Detected Not Detected [employer] [place] [employer] Comment: Methodology: Cylinder Machine Operator Pulp Drier-Mediated Amplification This assay detects E6/E7 viral messenger RNA (mRNA) from 14 high-risk HPV types (16,18,31,33,35,39,45,51,52,56,58,59,66,68). Cervical sources are required for HPV testing. If a vaginal source from a patient who has had a total hysterectomy with removal of cervix was submitted, please contact the testing laboratory for alternative testing options. For additional information, please refer to http://[employer].Yieldbot/faq/FMV067z7 (This link if provided for information/ educational purposes only.) Chlamydia trachomatis RNA, TMA, Urogenital NOT DETECTED NOT DETECTED [employer] [place] [employer] Neisseria gonorrhoeae RNA, TMA, Urogenital NOT DETECTED NOT DETECTED [employer] [place] [employer] Comment [employer] [place] [employer] Comment: The analytical performance characteristics of this assay, when used to test SurePath(TM) specimens have been determined by [employer]. The modifications have not been cleared or approved by the FDA. This assay has been validated pursuant to the CLIA regulations and is used for clinical purposes. For additional information, please refer to https://[employer].Yieldbot/faq/VSE334 (This link is being provided for information/ educational purposes only.) Trichomonas vaginalis, QL, TMA, PAP Vial NOT DETECTED NOT DETECTED [employer] Comment: The analytical performance characteristics of this assay have been determined by [employer]. The modifications have not been cleared or approved by the FDA. This assay has been validated pursuant to the CLIA regulations and is used for clinical purposes. For additional information, please refer to http://education.Yieldbot/ faq/Trichomonastma (This link is being provided for information/ educational purposes only.) 08/21/2022 11:0 0 AM EST 08/22/2022 8:31 AM EST Tracie Vela [facility] CYTOLOGY ORDERABLES F inal Result Performing Organization Address [facility] de Phone Number [facility] [address] [place] [address], [place] [phone] [employer] [place] [employer] [address] [place] [address], (Nl[address]) [place] [address] * Pap Smear (08/21/2022 12:00 AM EST) Swab Tracie Vela [facility] CYTOLOGY ORDERABLES F inal Result Performing Organization Address [facility] de Phone Number [address], [place] [address] from Last 3 Months or Most Recently Relevant to Health Maintenance [place] [address] [place] [address] C3 Care Teams Community Organizer Relationship Specialty Start Date End Date Lawanda Styles MD [address] [place] [phone] PCP - General Family Medicine 06/02/22
--- OUTSIDE RECORDS SUMMARY | 2025-08-11 08:30 | XMS_ITS | Encounter Summary ---
Author Organization [employer] Address [address] [facility] 7t [place] [address] Care Team Providers Care Nurse Researcher Name Role Phone Lawanda Styles MD Primary Care Provider [phone] Encounter Details Date Type Department Care Team ([facility] st Contact Info) Description 01/09/2025 Orders Only [facility] MED[facility] [address] [place], [place] [phone] Lawanda Styles MD [address] [place], [place] [phone] Class 1 obesity without serious comorbidity with [...] Description 09/02/2025 9:00 AM EST Office Visit [facility] [address] [place] [address] Lawanda Styles MD [address] [place] [address] documented as of this encounter Visit Diagnoses Diagnosis Class 1 obesity without serious comorbidity with body mass index (BMI) of 33.0 to 33.9 in adult, unspecified obesity type- Primary documented in this encounter Additional Health Concerns Assessment Noted Time PHQ-9 Depression Total Score: 2 12/20/19 25 10:27 AM EDT documented as of this encounter Care Teams Nurse Researcher Relationship Specialty Start Date End Date Lawanda Styles MD [address] [place] [address] PCP - General Family Medicine 06/02/22 documented as of this encounter
--- OUTSIDE RECORDS SUMMARY | 2025-08-11 08:30 | XMS_ITS | Encounter Summary ---
Author Organization [employer] Address [address] [place] [address] [address] [place] [address] Care Team Providers Care Lpn Per Diem Name Role Phone Lawanda Styles MD Primary Care Provider [phone] Encounter Details Date Type Department Care Team (Late Contact Info) Description 09/13/2022 Abstract [facility] MEDICINE [address] [place] [address] [phone] Radha Suarez, RN [address] [place] [address] [phone] Social History Tobacco Use Types Packs/Day Years [...] Department Care Team (Late Contact Info) Description 09/02/2025 9:00 AM EST Office Visit [facility] MEDICINE [address] [place] [address] [phone] Lawanda Styles MD [address] [place] [address] [phone] documented as of this encounter Procedures Procedure Name Priority Date/Time Associated Diagnosis Comments MAMMOGRAPHY Routine 09/09/2022 documented in this encounter Results * Mammography (09/09/2022) HM Mammogram Birads 1: Negative Recommendation- Annual mammography screening Comment:BIRADS 1:Negative Anatomical Region Laterality Modality Other Historical Provider HEALTH MAINTENANCE Final Result documented in this encounter Visit Diagnoses Not on filedocumented in this encounter Care Teams Lpn Per Diem Relationship Specialty Start Date End Date Lawanda Styles MD [address] [place] [address] PCP - General Family Medicine 06/02/22 documented as of this encounter
--- OUTSIDE RECORDS SUMMARY | 2025-08-11 08:31 | XMS_ITS | Encounter Summary ---
Author Organization [employer] Address [address] [place] [address] [address] [place] [address] Care Team Providers Care Radiator Specialist Name Role Phone Lawanda Styles MD Primary Care Provider [phone] Encounter Details Date Type Department Care Team (Late Contact Info) Description 08/24/2022 Orders Only [facility] MEDICINE [address] [place] [address] [phone] Mihir Tinsley, Bel ERRONEOUS ENCOUNTER--DISREGARD (Primary Dx) Social History Tobacco [...] Description 09/02/2025 9:00 AM EST Office Visit [facility] MEDICINE [address] [place] [address] [phone] Lawanda Styles MD [address] [place] [address] [phone] documented as of this encounter Procedures Procedure Name Priority Date/Time Associated Diagnosis Comments TSH Routine 10/04/2022 10:40 AM EST ERRONEOUS ENCOUNTER--DISREGARD T4, FREE Routine 10/04/2022 10:40 AM EST ERRONEOUS ENCOUNTER--DISREGARD documented in this encounter Results * (ABNORMAL) TSH (10/04/2022 10:40 AM EST) Thyroid Stimulating Hormone 0.04(L) 0.32 - 4.0 uIU/mL [facility] Comment:TSH 3rd Generation ( [facility]) 10/04/2022 10:4 0 AM EST 10/04/2022 1:52 PM EST [facility] External Provider LAB BLO OD ORDERABLES Final Result Performing Organization Address [facility]/ZIP Co de Phone Number [facility] [address] [place] [phone] * T4, Free (10/04/2022 10:40 AM EST) Free T4 (Free Thyroxine) 1.71 0.71 - 1.85 ng/dL [facility] 10/04/2022 10:4 0 AM EST 10/04/2022 1:52 PM EST [facility] External Provider LAB BLO OD ORDERABLES Final Result Performing Organization Address City/[facility] Co de Phone Number [facility] [address] [place] [phone] documented in this encounter Visit Diagnoses Diagnosis ERRONEOUS ENCOUNTER--DISREGARD- Primary documented in this encounter Care Teams Radiator Specialist Relationship Specialty Start Date End Date Lawanda Styles MD [address] [place] [phone] PCP - General Family Medicine 06/02/22 documented as of this encounter
--- OUTSIDE RECORDS SUMMARY | 2025-08-11 08:31 | XMS_ITS | Encounter Summary ---
Author Organization [employer] Address [address] [facility] [address] 7[address] [place] [address] Care Team Providers Care Delimer Name Role Phone Lawanda Styles MD Primary Care Provider [phone] Reason for Visit * Reason Comments Med Refill Encounter Details Date Type Department Care Team (Late st Contact Info) Description 09/24/2023 Refill [facility] [address] [place] [address] [phone] Lawanda Styles MD [address] [place], [place] [phone] Acute pain of right knee Social History [...] Description 09/02/2025 9:00 AM EST Office Visit [facility] [address] [place] [phone] Lawanda Styles MD [address] [place] [phone] documented as of this encounter Visit Diagnoses Diagnosis Acute pain of right knee documented in this encounter Additional Health Concerns Assessment Noted Time PHQ-9 Depression Total Score: 17 023 9:53 AM EDT documented as of this encounter Care Teams Delimer Relationship Specialty Start Date End Date Lawanda Styles MD [address] [place] [phone] PCP - General Family Medicine 06/02/22 documented as of this encounter
--- OUTSIDE RECORDS SUMMARY | 2025-08-11 08:31 | XMS_ITS | Clinical Summary ---
Author Organization [facility] Address [address] [place] [address] Care Team Providers Care Cargo Supervisor Name Role Phone Unavailable Primary Care Provider [...]
== END 2025-08-11 08:06 | disposition home or self-care (01) ==
LOC: HO.NEURO 08:05
PROVIDERS: PCP General Practice; Visit Provider Family Medicine
DX: M54.12 Radiculopathy, cervical region (principal)
CPT/HCPCS: 95886; 95911

== ENCOUNTER → 2025-08-11 08:10 | Outpatient (BNV) | payer MEDICAID, SELFPAY | PROVIDERS: PCP General Practice; Visit Provider Psychiatry & Neurology Neurology | DX: M54.12 Radiculopathy, cervical region (principal) | CPT/HCPCS: 95886; 95911 ==